=== PATIENT | female | born 1935 | race Caucasian/White ===

== ENCOUNTER 2019-10-30 08:57 | Inpatient (IN) | payer MEDICARE, OTHER, SELFPAY ==
[2019-10-30] VITALS (16 sets, daily range): BP systolic 102–121; BP diastolic 57–74; PULSE 71–100; RESP 15–27; TEMP 37.3–37.7; O2SAT 94–99; BMI 19.9
--- NOTE | 2019-10-30 09:16 | XRR_ITS ---
PROCEDURE INFORMATION: Exam: XR Chest, 1 View Exam date and time: 10/30/2019 9:33 AM Age: 83 years old Clinical indication: Dyspnea/cough TECHNIQUE: Imaging protocol: XR of the chest Views: 1 view. COMPARISON: CR Chest 2 views* [id number] 07/03/2019 9:09 PM FINDINGS: Lungs: There is bibasilar airspace disease, worse on the right, potentially due to pneumonia or aspiration pneumonitis. Pleural space: No pleural effusion or pneumothorax. Heart/Mediastinum: The cardiac silhouette is not enlarged. The mediastinal contours are normal. Bones/joints: Multilevel disc degeneration in the thoracic spine. Prior left rotator cuff surgery with humeral anchors present. XR/XR chest 1V portable [id number] IMPRESSION: Asymmetric bibasilar airspace disease. Consider pneumonia or aspiration pneumonitis.
--- NOTE | 2019-10-30 09:17 | ECG_ITS ---
Measurements Intervals [place] Rate: 67 P: 62 MO: 163 QRS: 45 QRSD: 89 T: 67 QT: 404 QTc: 428 SINUS RHYTHM Compared to ECG 11/12/2018 15:39:27 No significant changes Electronically Signed On 10-30-2019 19:33:55 CDT by Yadiel Karimi M.D. [id number]
--- NOTE | 2019-10-30 09:22 | W.ED.SOB ---
HPI - SOB/Dyspnea General: Chief Complaint: Shortness of Breath/Dyspnea Stated Complaint: AMS,FEVER Time Seen by Provider: 10/30/19 09:02 History of Present Illness: HPI Narrative: 83-year-old female presents from the emergency room with a fever. She denied a fever the last couple of days they had done a flu swab on her but is not yet completed. The family meeting phone updates but was not able to see the patient the last few days. They tell me she has no history of heart disease no history of congestive heart failure she has had episodes of difficulty with swallowing in the past but reports she has not had a stroke she is not diabetic. She is awake able to answer questions in relation to place and person but not time she has some mild tachypnea and audible rales and expiratory wheezes. MD elicited complaint: shortness of breath and cough Pertinent past history: COPD Onset (ago): day(s) (3-4) Timing: constant Severity: severe Relieving factors: oxygen, rest and bronchodilators Associated symptoms: Reports fever(s); Deny abdominal pain, chest pain, nausea, orthopnea or vomiting Treatment prior to arrival: oxygen and bronchodilator Review of Systems Const: Reports: fever and chills; Denies: body aches, change in appetite, fatigue or malaise ENMT: Denies: throat pain, ear pain, nasal discharge or nasal congestion Card: Reports: edema and shortness of breath on exertion; Denies: chest pain or shortness of breath when lying down Resp: Reports: shortness of breath and non-productive cough; Denies: productive cough GI: Denies: abdominal pain, nausea, vomiting, vomiting blood, coffee grounds in vomit, diarrhea, constipation, bloating, blood in stool or black tarry stool : Denies: flank pain, difficulty urinating, painful urination, urinary frequency or urinary urgency Skin/Breast: Denies: rash or itching PFSH ED PFSH: Medical History (Updated 10/30/19 @ 14:00 by Alexandra Brown DO) DEWAYNE (generalized anxiety disorder) HTN (hypertension) Osteoarthritis Surgical History (Updated 10/30/19 @ 13:53 by Alexandra Brown DO) H/O cataract extraction Bilateral - Dr Casas H/O neck surgery H/O shoulder surgery 2011 Dr Live in [place] History of colonoscopy 2010 - normal per patient History of hysterectomy Hx of tonsillectomy Family History Mother Dementia Father Cancer Lymphoma Brother Diabetes Social History Smoking and tobacco status: never smoked Physical Exam Const: EXAM LIMITATIONS: altered mental status GENERAL APPEARANCE: in distress, anxious and frail appearing ORIENTATION/CONSCIOUSNESS: Yes awake, Yes oriented to person and Yes oriented to place; not oriented to time HENMT: COMMON NORMALS: normocephalic, head/scalp atraumatic, hearing grossly normal bilaterally, external ears normal, EAC's normal, TM's normal bilaterally, nasal mucous membranes and turbinates normal, moist oral mucous membranes and oropharynx normal HEAD & SCALP: normocephalic and atraumatic NOSE: nasal mucous membranes and turbinates normal EXTERNAL EAR: Yes external ears normal EXTERNAL AUDITORY CANAL: EAC's normal TYMPANIC MEMBRANE: TM's normal bilaterally Eye: COMMON NORMALS: PERRL, EOMs intact bilaterally, conjunctivae normal and no scleral icterus CONJUNCTIVA: Yes conjunctivae normal PUPIL: Yes PERRL Neck/C-Spine: COMMON NORMALS: full ROM, no lymphadenopathy and supple Lymph: LYMPHATIC: no lymphadenopathy noted and no lymphedema noted Resp: AUSCULTATION: rales bilateral and localized (cases - L>R), wheezes expiratory wheezes and throughout and diminished lung sounds Cardio: COMMON NORMALS: regular rhythm RATE: tachycardic RHYTHM: regular rhythm GI: COMMON NORMALS: soft to palpation and no hepatosplenomegaly AUSCULTATION: Yes normoactive bowel sounds PALPATION: Yes soft, No tender, No guarding and Yes no hepatosplenomegaly Extremity: COMMON NORMALS: normal to inspection, normal capillary refill, no calf tenderness and no pedal edema GENERAL: Yes edema (1+ lower extremities bilaterally extending to the mid calf) Neuro: SENSORIUM/ORIENTATION: Yes oriented to person, Yes oriented to place and No oriented to time Skin: COMMON NORMALS: no rashes or lesions noted GENERAL SKIN EXAM: no rashes or lesions noted Course ED course: Patient has an acute pneumonia will admit discussed with family. Ultimately they decided to make the patient a no code which I think is appropriate. Recently she has had progressive worsening and decline in her condition due to dementia. Dr. Brown will take the admission antibiotics have been started. Vital Signs: Vital signs: Vital Signs Temperature 100 F H 10/30/19 08:56 Pulse Rate 77 10/30/19 14:10 Respiratory Rate 20 H 10/30/19 14:10 Blood Pressure 117/68 10/30/19 14:10 Pulse Oximetry 98 10/30/19 14:10 MDM - SOB/Dyspnea Lab Data: Labs: Lab Results 10/30/19 10/30/19 10/30/19 Range/Units 09:15 09:35 09:35 WBC 7.5 (4.0-10.0) 10^3/ uL RBC 3.03 L (4.1-5.3) 10^6/u L Hgb 9.3 L (11.5-15.3) g/dL Hct 29.4 L (37.0-47.0) % MCV 97.0 (81-99) fL MCH 30.7 (28.0-34.0) pg MCHC 31.6 (30.0-36.0) g/dL RDW 13.2 (12.1-15.1) % Plt Count 218 (130-400) 10^3/c mm MPV 9.0 (7.4-10.4) fL Neut % (Auto) 73.5 % Lymph % (Auto) 16.1 % [place] % (Auto) 10.0 % Eos % (Auto) 0.0 % Baso % (Auto) 0.1 % Neut # (Auto) 5.5 (1.8-7.7) 10^3/u L Lymph # (Auto) 1.2 (0.8-4.8) 10^3/u L [place] # (Auto) 0.8 (0.2-0.9) 10^3/u L Eos # (Auto) 0.0 (0.0-0.8) 10^3/u L Baso # (Auto) 0.0 (0.0-0.1) 10^3/u L Nucleated RBC % (a uto) 0 % Nucleated RBCs # 0.0 /100WBC Specimen Type Arterial Sample Site Radial, right ABG pH 7.44 (7.35-7.45) ABG pCO2 42.1 (35-45) mmHg ABG pO2 106.0 H (80.0-100.0) mmH g ABG HCO3 28.5 H (22-26) mmol/L ABG O2 Saturation 99.1 ABG Base Excess 3.9 H (-2.0-2.0) mmol/ L Dieter Test Pos Hematocrit 29.5 L (37-47) % Hgb O2 Saturation 98.2 (95-100) % Carboxyhemoglobin 0.5 (0.4-20.1) %THgb Methemoglobin 0.3 L (0.4-1.5) % Total Hemoglobin 9.6 L (12-16) g/dL Sodium 135.0 134 L (131-143) mmol/L Potassium 3.3 L 3.7 (3.5-5.0) mmol/L Glucose 94.0 115 (70-115) mg/dL Ionized Calcium 1.1 (1.1-1.4) mmol/L O2 Delivery Device Nc O2 Liters/Min 4.0 % Promotional Demonstrator ID broma Chloride 97 L (98-107) mmol/L Carbon Dioxide 26 (22-29) mmol/L Anion Gap 14.7 (5-19) BUN 22 (8-23) mg/dL Creatinine 0.9 (0.5-0.9) mg/dL Calculated Osmolal ity 276 L (285-295) mOsm/k g Calcium 8.7 (8.5-10.5) mg/dL Total Bilirubin 0.3 (0.15-1.2) mg/dL AST 30 (0-32) U/L ALT 11 (0-33) U/L Alkaline Phosphata se 75 (35-105) IU/L Troponin T Baselin e (0-10) ng/mL NT-Pro-B Natriuret Pep 1738 H (0-450) pg/mL Total Protein 6.4 L (6.6-8.7) g/dL Albumin 3.1 L (3.5-5.2) g/dL Globulin 3.3 (1.3-4.6) g/dL Influenza Type A A g (Negative) POC Influenza B Ag (Negative) 10/30/19 10/30/19 Range/Units 09:35 09:35 WBC (4.0-10.0) 10^3/ uL RBC (4.1-5.3) 10^6/u L Hgb (11.5-15.3) g/dL Hct (37.0-47.0) % MCV (81-99) fL MCH (28.0-34.0) pg MCHC (30.0-36.0) g/dL RDW (12.1-15.1) % Plt Count (130-400) 10^3/c mm MPV (7.4-10.4) fL Neut % (Auto) % Lymph % (Auto) % [place] % (Auto) % Eos % (Auto) % Baso % (Auto) % Neut # (Auto) (1.8-7.7) 10^3/u L Lymph # (Auto) (0.8-4.8) 10^3/u L [place] # (Auto) (0.2-0.9) 10^3/u L Eos # (Auto) (0.0-0.8) 10^3/u L Baso # (Auto) (0.0-0.1) 10^3/u L Nucleated RBC % (a uto) % Nucleated RBCs # /100WBC Specimen Type Sample Site ABG pH (7.35-7.45) ABG pCO2 (35-45) mmHg ABG pO2 (80.0-100.0) mmH g ABG HCO3 (22-26) mmol/L ABG O2 Saturation ABG Base Excess (-2.0-2.0) mmol/ L Dieter Test Hematocrit (37-47) % Hgb O2 Saturation (95-100) % Carboxyhemoglobin (0.4-20.1) %THgb Methemoglobin (0.4-1.5) % Total Hemoglobin (12-16) g/dL Sodium (131-143) mmol/L Potassium (3.5-5.0) mmol/L Glucose (70-115) mg/dL Ionized Calcium (1.1-1.4) mmol/L O2 Delivery Device O2 Liters/Min % Promotional Demonstrator ID Chloride (98-107) mmol/L Carbon Dioxide (22-29) mmol/L Anion Gap (5-19) BUN (8-23) mg/dL Creatinine (0.5-0.9) mg/dL Calculated Osmolal ity (285-295) mOsm/k g Calcium (8.5-10.5) mg/dL Total Bilirubin (0.15-1.2) mg/dL AST (0-32) U/L ALT (0-33) U/L Alkaline Phosphata se (35-105) IU/L Troponin T Baselin e 37 H (0-10) ng/mL NT-Pro-B Natriuret Pep (0-450) pg/mL Total Protein (6.6-8.7) g/dL Albumin (3.5-5.2) g/dL Globulin (1.3-4.6) g/dL Influenza Type A A g Negative (Negative) POC Influenza B Ag Negative (Negative) Discharge Plan Discharge Patient Disposition: Admitted As Inpatient Admit Provider: Alexandra Brown Coding Level of Care Code ED Catering Cook for Gavi Fwd Exam Comprehensive
[2019-10-30 09:43] LABS: Basophils % 0.1 %; Hematocrit 29.4 % (37.0-47.0); Hemoglobin 9.3 g/dL (11.5-15.3); Lymphocytes # 1.2 10^3/uL (0.8-4.8); Lymphocytes % 16.1 %; Mean Corpuscular HGB Conc 31.6 g/dL (30.0-36.0); Mean Corpuscular Hemoglobin 30.7 pg (28.0-34.0); Monocytes # 0.8 10^3/uL (0.2-0.9); Neutrophils # 5.5 10^3/uL (1.8-7.7); Neutrophils % 73.5 %; Nucleated Red Blood Cells % 0 %; Platelet Count 218 10^3/cmm (130-400); Red Blood Count 3.03 10^6/uL (4.1-5.3); Red Cell Distribution Width 13.2 % (12.1-15.1); White Blood Count 7.5 10^3/uL (4.0-10.0)
[2019-10-30] MEDS: levofloxacin-dextrose 5 % 750 MG/150 ML PREMIX 150 MG IV (09:51)
[2019-10-30 10:00] LABS: Troponin(5th) Baseline 37 ng/mL (0-10)
[2019-10-30 10:08] LABS: Alanine Aminotransferase 11 U/L (0-33); Albumin Level 3.1 g/dL (3.5-5.2); Alkaline Phosphatase 75 IU/L (35-105); Anion Gap 14.7 (5-19); Aspartate Amino Transferase 30 U/L (0-32); Blood Urea Nitrogen 22 mg/dL (8-23); Calcium 8.7 mg/dL (8.5-10.5); Carbon Dioxide 26 mmol/L (22-29); Chloride 97 mmol/L (98-107); Globulin 3.3 g/dL (1.3-4.6); Glucose 115 mg/dL (65-115); NT Pro B Type Natriuretic Pept 1738 pg/mL (0-450); Osmolality Calculated 276 mOsm/kg (285-295); Potassium 3.7 mmol/L (3.5-5.1); Sodium 134 mmol/L (136-145); Total Bilirubin 0.3 mg/dL (0.15-1.2); Total Protein 6.4 g/dL (6.6-8.7)
[2019-10-30 10:20] LABS: Influenza A by IFA Negative (Negative); Influenza B by IFA Negative (Negative)
[2019-10-30 10:22] LABS: ABG PCO2 42.1 mmHg (35-45); ABG PH Result 7.44 (7.35-7.45); Arterial Blood Gas Hematocrit 29.5 % (37-47); Base Excess ABG 3.9 mmol/L (-2.0-2.0); Blood Gas Allen Test Pos; Blood Gas Sample Site Radial, right; Blood Gas Sample Type Arterial; Carboxyhemoglobin 0.5 %THgb (0.4-20.1); HCO3 ABG 28.5 mmol/L (22-26); HGB O2 Sat 98.2 % (95-100); Ionized Calcium Level - ABG 1.1 mmol/L (1.1-1.4); Methemoglobin 0.3 % (0.4-1.5); Oxygen Device NC; Oxygen Saturation ABG 99.1; Potassium Level - ABG 3.3 mmol/L (3.5-5.0); Total Hemoglobin 9.6 g/dL (12-16)
--- NOTE | 2019-10-30 11:17 | ECG_ITS ---
Measurements Intervals [place] Rate: 73 P: 55 CT: 180 QRS: 32 QRSD: 88 T: 61 QT: 416 QTc: 461 SINUS RHYTHM Compared to ECG 11/12/2018 15:39:27 No significant changes Electronically Signed On 10-30-2019 19:38:01 CDT by Yadiel Karimi M.D. [id number]
[2019-10-30 12:04] LABS: Add Urine Microscopic? NO
[2019-10-30 12:15] LABS: Bilirubin Urine Neg (NEGATIVE); Blood Urine Neg (Negative); Glucose Urine UA Norm (Normal); Ketones Urine Negative (Negative); Leukocyte Esterase Urine Negative (Negative); Nitrate Urine Negative (Negative); Protein Urine Neg (Negative); Specific Gravity, Urine 1.005 (1.005-1.030); Urine Appearance Clear (CLEAR); Urine Color Yellow (Yellow); Urobilinogen Urine Norm (Negative); pH Urine 7 (5-7)
--- NOTE | 2019-10-30 12:33 | PC.NURSE ---
Nurse not ready for report
--- NOTE | 2019-10-30 13:51 | P.HP_ITS ---
Providers/Chief Complaint Admitting Physician: Alexandra Brown DO Primary Care Provider: Jas Coffey APN Chief Complaint: PNEUMONIA History of Present Illness Beena Sam is a 83 year old female that presented from the correction today due to increased confusion and fever. Patient was noted to have a fever overnight at the correction and started on Levaquin, received first dose at the correction of Levaquin 500 mg 1 tab daily. She was reported to be recently taken off of Risperdal and placed on Cogentin and Seroquel. She is noted to have dementia and had been recently hospitalized in July at [facility] in [facility] due to concern for paranoia. Family reports rapid decline since that time. They stated that patient's is also in the correction and noted to have dementia. Patient is difficult to obtain HPI from due to her chronic dementia and acute encephalopathy Review of Systems General: Reports: ROS unobtainable due to mental status Medications/Allergies Home Medications Medication Instructions Recorded Confirmed Last Taken Type benztropine 1 mg PO BID 10/30/19 10/30/19 Unknown History conjugated estrogens [Premarin] 0.625 mg PO DAILY 10/30/19 10/30/19 Unknown History duloxetine 60 mg PO DAILY 10/30/19 10/30/19 Unknown History levofloxacin [Levaquin] 500 mg PO DAILY 10/30/19 10/30/19 Unknown History quetiapine [Seroquel] 50 mg PO BID 10/30/19 10/30/19 Unknown History Allergies Allergy/AdvReac Type Severity Reaction Status Date / Time metronidazole [From Flagyl] Allergy Unknown Verified 08/15/19 16:47 Opioids - Morphine Analogues Allergy Unknown Verified 08/15/19 16:47 Penicillins Allergy Unknown Verified 08/15/19 16:47 Sulfa (Sulfonamide Allergy Unknown Verified 08/15/19 16:47 Antibiotics) PFSH Acute PFSH: Medical History (Updated 10/30/19 @ 14:00 by Alexandra Brown DO) DEWAYNE (generalized anxiety disorder) HTN (hypertension) Osteoarthritis Surgical History (Updated 10/30/19 @ 13:53 by Alexandra Brown DO) H/O cataract extraction Bilateral - Dr Casas H/O neck surgery H/O shoulder surgery 2011 Dr Live in [place] History of colonoscopy 2010 - normal per patient History of hysterectomy Hx of tonsillectomy Family History Mother Dementia Father Cancer Lymphoma Brother Diabetes Social History Smoking and tobacco status: never smoked Vitals/I&O/Wt Last Vital Signs Temp 100 F H 10/30/19 08:56 Pulse 80 10/30/19 08:56 Resp 24 H 10/30/19 08:56 BP 109/57 10/30/19 09:04 Pulse Ox 98 10/30/19 09:05 Weight last 48 hrs Weight 49.442 kg Physical Exam Const: COMMON NORMALS: alert EXAM LIMITATIONS: altered mental status ORIENTATION/CONSCIOUSNESS: Yes awake and Yes confused HENMT: COMMON NORMALS: normocephalic and head/scalp atraumatic HEAD & SCALP: normocephalic and atraumatic Eye: COMMON NORMALS: PERRL PUPIL: Yes PERRL Neck/C-Spine: COMMON NORMALS: supple GENERAL: Yes normal visual inspection Resp: COMMON NORMALS: no retractions OTHER: Oxygen by nasal cannula in place, diminished breath sounds bilaterally and poor cough Cardio: COMMON NORMALS: regular rate and regular rhythm RATE: regular rate RHYTHM: regular rhythm GI: COMMON NORMALS: soft to palpation and non-tender INSPECTION: No abdominal distension AUSCULTATION: Yes normoactive bowel sounds PALPATION: Yes soft Extremity: NARRATIVE EXTREMITY EXAM: 2+ pitting edema in the lower extremities bilaterally Neuro: OTHER: Confused, awake and continues to try to sit up in bed, rigidity present in the upper and lower extremities Psych: MEMORY/COGNITION: Yes memory grossly impaired Skin: COMMON NORMALS: no rashes or lesions noted Data : 10/30/19 09:35 10/30/19 09:35 CXR: I personally reviewed and interpreted this imaging study as follows: Radiologist's impression: IMPRESSION: Asymmetric bibasilar airspace disease. Consider pneumonia or aspiration pneumonitis. A&P Assessment and plan (1) Aspiration pneumonia: Continue on IV antibiotics Patient is on 4 L of oxygen by nasal cannula at this time, continue to wean as tolerated Speech therapy ordered for evaluation, n.p.o. until that time Status: Acute Code(s): J69.0 - Pneumonitis due to inhalation of food and vomit (2) Encephalopathy acute: Acute on chronic encephalopathy with underlying dementia at night, on Cymbalta 60 mg daily Continue neurologic checks Sitter due to patient repetitively trying to get out of bed Patient also with rigidity concern for question of Lewy body dementia, discussed with patient's primary care provider. Had recently been on Risperdal, this was discontinued and patient was transitioned to Seroquel and Cogentin. Further neurologic consultation with Dr. Sawyer placed, appreciate recommendations and assistance in patient's care. CT scan of the head ordered Status: Acute Code(s): G93.40 - Encephalopathy, unspecified Additional A&P Information we will check TSH Fever: Due to concern for aspiration pneumonia/pneumonitis, blood culture ordered and pending. Flu swab negative Concern for rigidity: Family reported recent december starting medication for Parkinson's, after discussion with patient's primary care provider it appears the patient was started on Seroquel and Cogentin. Discussed with neurology for consultation. CT scan of the head ordered for further evaluation. Record request from recent hospitalization in July from [facility] Anemia: No evidence of any active bleeding hemoglobin of 9.3, will continue to monitor closely Elevated BNP: Patient does have bilateral lower extremity edema, however does not not appear to be significantly fluid overloaded on chest x-ray. Will further evaluate with echocardiogram DVT ppx: Lovenox Diet: NPO until ST ev COde status: Full code, family reported to be DPOA discussed with Son and Daughter at bedside and full code at this time and will discuss further as a family Attestations Medical Necessity Statement*: Patient requires hospitalization due to acute on chronic encephalopathy with concern for aspiration pneumonia. Expected stay greater than 2 midnights Coding Level of Care Code Acute Rhit for [facility] Fwd Exam Comprehensive Diagnoses Aspiration pneumonia J69.0 Encephalopathy acute G93.40
--- NOTE | 2019-10-30 14:11 | USCV_ITS ---
Beena Sam Age: 83 Gender: F : 1935 Exam Date: 10/30/2019 16:53 Ordering Phys: Alexandra Brown DO Technologist: Maliha Mcdonald [place] [facility] [place]: hypoxia BP: 121 / 59 HR: 74 Rhythm: Sinus Technical Quality: Adequate MEASUREMENTS (Male / Female) Normal Values 2D ECHO LV Diastolic Diameter PLAX 3.9 cm 4.2 - 5.9 / 3.9 - 5.3 cm LV Systolic Diameter PLAX 2.9 cm LV Chamber Size 3.4 cm IVS Diastolic Thickness 1.1 cm 0.6 - 1.0 / 0.6 - 0.9 cm IVS Systolic Thickness 1.1 cm LVPW Diastolic Thickness 1.4 cm 0.6 - 1.0 / 0.6 - 0.9 cm LVPW Systolic Thickness 1.6 cm RV Chamber Size 2.3 cm LVOT Diameter 2.0 cm LV Ejection Fraction 2D Teich 47.7 % LV Ejection Fraction MOD 2C 53.5 % LV Ejection Fraction 2C AL 53.4 % LA Diameter 3.4 cm LA Width 3.8 cm LA Height 4.3 cm RA Width 3.4 cm RA Height 3.9 cm Aorta at Sinotubular Diameter 2.6 cm M-MODE LV Diastolic Diameter MM 4.9 cm 4.2 - 5.9 / 3.9 - 5.3 cm LV Systolic Diameter MM 2.8 cm LV Ejection Fraction MM Teich 74.9 % IVS Diastolic Thickness MM 0.5 cm 0.6 - 1.0 / 0.6 - 0.9 cm IVS Systolic Thickness MM 1.0 cm LVPW Diastolic Thickness MM 0.6 cm 0.6 - 1.0 / 0.6 - 0.9 cm LVPW Systolic Thickness MM 1.3 cm Aortic Annulus Diameter 2.9 cm LA Ao Ratio MM 1.1 MV E Point Septal Separation 0.2 cm DOPPLER AV Peak Velocity 156.0 cm/s LVOT Peak Velocity 118.0 cm/s AV Area Cont Eq vti 3.1 cm squared AV Area Cont Eq pk 2.4 cm squared MV Area PHT 3.3 cm squared Mitral E to A Ratio 1.3 MV E' Velocity 10.0 cm/s Mitral E to MV E' Ratio 8.7 Mitral E to LV E' Lateral Ratio 9.1 Mitral E to LV E' Septal Ratio 8.5 TR Peak Velocity 306.0 cm/s TR Peak Gradient 37.4 mmHg TV Peak E Velocity 68.0 cm/s Right Atrial Pressure 3.0 mmHg Pulmonary Artery Systolic Pressu 40.5 mmHg PV Peak Velocity 89.0 cm/s RV Acceleration Time 0.1 s RV Ejection Time 0.3 s RV AcT/ET 0.3 FINDINGS Left Ventricle Normal left ventricular size, systolic function and wall thickness, with no regional wall motion abnormalities. Grade I/IV diastolic dysfunction (abnormal relaxation filling pattern), normal to mildly elevated filling pressures. Left ventricular ejection fraction is estimated at 65 %. Right Ventricle Normal right ventricular size and systolic function. Mild pulmonary hypertension, RVSP 40.5 mmHg. Right Atrium The right atrium is normal in size. Left Atrium The left atrium is normal in size. Mitral Valve Structurally normal mitral valve. Mild mitral valve regurgitation. Aortic Valve Structurally normal aortic valve without significant sclerosis or stenosis. There is no aortic regurgitation. Tricuspid Valve Structurally normal tricuspid valve. Trace tricuspid valve regurgitation. Pulmonic Valve Pulmonic valve not well visualized. Pericardium Normal pericardium without effusion. Aorta Normal ascending aorta dimension. CONCLUSIONS Normal left ventricular size, systolic function and wall thickness, with no regional wall motion abnormalities. Grade I/IV diastolic dysfunction (abnormal relaxation filling pattern), normal to mildly elevated filling pressures. Left ventricular ejection fraction is estimated at 65 %. Normal right ventricular size and systolic function. Mild pulmonary hypertension, RVSP 40.5 mmHg. Structurally normal mitral valve. Mild mitral valve regurgitation. No significant change since the prior echocardiogram study of 07/17/2017 Dr. Yadiel Karimi MD (Electronically Signed) Final Date: 30 October 2019 18:59 S
[2019-10-30 14:58] LABS: Iron 11 ug/dL (37-145); Percent Saturation 3.9 % (20-50); Thyroid Stimulating Hormone 7.32 uIU/mL (0.27-4.20); Total Iron Binding Capacity 279 mcg/dl; Unsaturated Iron Binding 268 ug/dL (112-347)
--- NOTE | 2019-10-30 15:06 | PC.NURSE ---
Nurse to call back for report
[2019-10-30 15:10] LABS: Lactic Sepsis W/Reflex 1.3 mmol/L (0.5-2.2)
--- NOTE | 2019-10-30 15:17 | ECG_ITS ---
Measurements Intervals [place] Rate: 80 P: 64 [place]: 170 QRS: 11 QRSD: 84 T: 58 QT: 370 QTc: 428 SINUS RHYTHM Compared to ECG 11/12/2018 15:39:27 No significant changes Electronically Signed On 10-30-2019 19:35:45 CDT by Yadiel Karimi M.D. [id number]
[2019-10-30 16:08] LABS: Troponin 5 6HR 38.69 ng/mL (0-10); Troponin 5 6HR Delta 1.69 ng/L (0-12)
--- NOTE | 2019-10-30 16:10 | CTR_ITS ---
PROCEDURE INFORMATION: Exam: CT Head Without Contrast Exam date and time: 10/30/2019 5:21 PM Age: 83 years old Clinical indication: Altered mental status/memory loss; Patient HX: Confusion/ams; Additional info: Encephalopathy TECHNIQUE: Imaging protocol: Computed tomography of the head without contrast. Total DLP: 627.44 mGy-cm Radiation optimization: All CT scans at this facility use at least one of these dose optimization techniques: automated exposure control; mA and/or kV adjustment per patient size (includes targeted exams where dose is matched to clinical indication); or iterative reconstruction. COMPARISON: CT head wo con* [id number] 01/24/2019 4:20 PM FINDINGS: Brain: There is unchanged volume loss and periventricular low density compatible with small vessel disease changes. No acute hemorrhage, edema or mass effect. Midline shift: No midline shift. Ventricles: Normal. No ventriculomegaly. Bones/joints: Unremarkable. No acute fracture. Sinuses: Visualized sinuses are unremarkable. No fluid levels. Mastoid air cells: Visualized mastoid air cells are well aerated. Soft tissues: Unremarkable. CT/CT head wo con* [id number] IMPRESSION: No acute intracranial abnormality. Radiation Dose CTDIVOL = (mGy): DLP = 627.44 (mGy-cm)
[2019-10-30] MEDS: LORazepam 2 mg/mL INJ 1 mL 0.5 MG IVP (16:49)
[2019-10-30] MEDS: D5-NS 0.45% + KCL 20 mEq 20 MEQ/1,000 ML BAG 100 MEQ IV (16:49)
[2019-10-30] MEDS: enoxaparin 40 mg/0.4 mL Syringe SUBCUT (16:49)
[2019-10-30] MEDS: timolol 0.5% Op Soln 5 mL Btl 1 DROP EYE-BOTH (18:20)
[2019-10-30 18:23] LABS: Free T4 Free Thyroxine 1.01 ng/dL (0.82-1.77)
[2019-10-31] VITALS (10 sets, daily range): BP systolic 100–123; BP diastolic 50–68; PULSE 56–86; RESP 12–24; TEMP 36.6–37.4; O2SAT 93–99; BMI 24.9
--- NOTE | 2019-10-31 02:12 | PC.PHAR ---
RENAL DOSING FOR LEVAQUIN CRCL 36.6 CHANGED LEVAQUIN TO 750MG Q48H
[2019-10-31] MEDS: TRAMadol 50 mg Tablet 100 MG PO (03:43)
[2019-10-31 04:09] LABS: Basophils % 0.1 %; Eosinophils % 0.1 %; Hematocrit 28.9 % (37.0-47.0); Hemoglobin 8.9 g/dL (11.5-15.3); Lymphocytes # 2.1 10^3/uL (0.8-4.8); Lymphocytes % 22.2 %; Mean Corpuscular HGB Conc 30.8 g/dL (30.0-36.0); Mean Corpuscular Hemoglobin 29.5 pg (28.0-34.0); Mean Corpuscular Volume 95.7 fL (81-99); Mean Platelet Volume 9.1 fL (7.4-10.4); Monocytes # 0.5 10^3/uL (0.2-0.9); Monocytes % 5.4 %; Neutrophils # 6.8 10^3/uL (1.8-7.7); Neutrophils % 71.9 %; Nucleated Red Blood Cells % 0 %; Platelet Count 219 10^3/cmm (130-400); Red Blood Count 3.02 10^6/uL (4.1-5.3); Red Cell Distribution Width 13.2 % (12.1-15.1); White Blood Count 9.5 10^3/uL (4.0-10.0)
[2019-10-31 04:24] LABS: Anion Gap 11.8 (5-19); Blood Urea Nitrogen 18 mg/dL (8-23); Calcium 8.5 mg/dL (8.5-10.5); Carbon Dioxide 26 mmol/L (22-29); Chloride 101 mmol/L (98-107); Glucose 99 mg/dL (65-115); Osmolality Calculated 277 mOsm/kg (285-295); Potassium 3.8 mmol/L (3.5-5.1); Sodium 135 mmol/L (136-145)
--- NOTE | 2019-10-31 04:53 | PC.NURSE ---
patient kept trying to get up she was more anxious when i tried to get her to lay back and try and rest she said she cant relax. gave her a dose of her hydros to help assist her with pain and or anxiety to help rest. will continue to monitor closely.
[2019-10-31] MEDS: D5-NS 0.45% + KCL 20 mEq 20 MEQ/1,000 ML BAG 100 MEQ IV ×2 (06:31→20:40)
[2019-10-31] MEDS: duloxetine 60 mg Capsule PO (09:43)
[2019-10-31] MEDS: benztropine 1 mg Tablet PO (09:43)
[2019-10-31] MEDS: pantoprazole DR 40 mg Tablet PO (09:43)
[2019-10-31] MEDS: quetiapine 25 mg Tablet 50 MG PO (09:43)
[2019-10-31] MEDS: timolol 0.5% Op Soln 5 mL Btl 1 DROP EYE-BOTH ×2 (09:43→17:21)
--- NOTE | 2019-10-31 10:24 | P.PN_ITS ---
Subjective Subjective: Interval history: Patient awake in bed at time of exam today. She is more alert and answering questions including her name. Decreased rigidity today. She denies any chest pain, reported cough Vitals/I&O/Wt Last Vital Signs Temp 97.8 F 10/31/19 08:49 Pulse 65 10/31/19 07:09 Resp 16 10/31/19 07:09 BP 123/59 10/31/19 07:09 Pulse Ox 99 10/31/19 07:09 10/30/19 10/31/19 10/31/19 22:59 06:59 14:59 Intake Total 1000 / 1000 Balance 1000 / 1000 Weight last 48 hrs Weight 61.825 kg Weight 61.825 kg Weight 49.442 kg Physical Exam Const: COMMON NORMALS: alert EXAM LIMITATIONS: altered mental status ORIENTATION/CONSCIOUSNESS: Yes awake, Yes oriented to person and Yes confused HENMT: COMMON NORMALS: normocephalic and head/scalp atraumatic HEAD & SCALP: normocephalic and atraumatic Eye: COMMON NORMALS: PERRL PUPIL: Yes PERRL Neck/C-Spine: COMMON NORMALS: supple GENERAL: Yes normal visual inspection Resp: COMMON NORMALS: no retractions OTHER: Oxygen by nasal cannula in place, diminished breath sounds bilaterally Cardio: COMMON NORMALS: regular rate and regular rhythm RATE: regular rate RHYTHM: regular rhythm GI: COMMON NORMALS: soft to palpation and non-tender INSPECTION: No abdominal distension AUSCULTATION: Yes normoactive bowel sounds PALPATION: Yes soft Extremity: NARRATIVE EXTREMITY EXAM: 2+ pitting edema in the lower extremities bilaterally Neuro: SENSORIUM/ORIENTATION: Yes alert and Yes oriented to person OTHER: Pleasantly confused, improved mental status today. Rigidity has improved Psych: MEMORY/COGNITION: Yes memory grossly impaired Skin: COMMON NORMALS: no rashes or lesions noted GENERAL SKIN EXAM: no rashes or lesions noted Data : 10/31/19 03:45 10/31/19 03:45 Micro: Microbiology 10/30/19 14:52 Blood Culture - Preliminary Blood SPECIMEN COLLECTED 10/30/19 09:35 Blood Culture - Preliminary Blood SPECIMEN COLLECTED A&P Assessment and plan (1) Aspiration pneumonia: Continue on Levaquin Continue to wean oxygen as tolerated. Currently on 4 L by nasal cannula Speech therapy evaluated and patient placed on soft mechanical diet with thin liquids Status: Acute Code(s): J69.0 - Pneumonitis due to inhalation of food and vomit (2) Encephalopathy acute: Acute on chronic encephalopathy with underlying dementia at night, on Cymbalta 60 mg daily Discussed with patient's primary care provider and with neurology. Patient's encephalopathy appears to be improved today. CT head ordered which shows no acute intracranial abnormality. Neurology consulted do due to patient having acute decline with reported decline since July by family Status: Acute Code(s): G93.40 - Encephalopathy, unspecified Additional A&P Information Fever: Due to concern for aspiration pneumonia/pneumonitis, blood culture ordered and pending. Flu swab negative Concern for rigidity: Improved today. Patient has been adjusting medications with primary care provider, however recently discontinued Risperdal and was started on Seroquel and Cogentin. Neurology consultation as noted above Anemia: No evidence of any active bleeding hemoglobin of 8.9, will continue to monitor closely Elevated BNP: Patient does not appear to be significantly fluid overloaded at this time. Echocardiogram reviewed showed diastolic dysfunction, normal LVEF DVT ppx: Lovenox Diet: Mechanical soft, thin liquids COde status: Full code, family reported to be DPOA discussed with Son and Daughter at bedside and full code at this time and will discuss further as a family Attestations Medical Necessity Statement*: Continued hospitalization due to concern for pneumonia Coding Level of Care Code Acute Associate Financial Planner for [facility] Fwd Exam Comprehensive Diagnoses Aspiration pneumonia J69.0 Encephalopathy acute G93.40
--- NOTE | 2019-10-31 12:15 | PC.CHAP ---
Pastoral Care Encounter/Spiritual Assessment Type of Contact [] Declined bpm architect visit [] Patient/Family/Request visit [] Outpatient visit [] Follow-up visit [] Physician referral [] Code/Alert [x] Routine visit [] Staff referral [] Actively dying [] Patient sleeping [] Family support [] [] Out of room [] Palliative care [] [] Receiving care in room [] Pre-surgical visit [] Trauma [] Long length of stay [] ICU visit [] Other: Relational/Emotional Strength [] Patient feels connected with others/family/visitors/staff [] Distress [] Loneliness/isolation [] Abandonment Spirituality of Patient [] Person of Lisa [] Attends Restorationist of their Lisa [] Believes in Prayer [] Reads Bible or Zoroastrian materials [] There are Spiritual issues to be addressed Accounts Specialist Interventions [x] Prayer [x] Active listening [] Non-anxious presence [] Spiritual/emotional support [] Crisis/trauma care [] Spiritual counseling [] Bereavement support [] Provided bereavement packet [] Provided Bible/devotional materials [] Provided toy/stuffed animal, coloring book to patient or family member [] Provided Communion [] Anointing/[place] [] Salvation [] Completed spiritual assessment [] Other: Impact on Illness or Injury [] Angry [] Fearful [] Anxious [] Often cries [] Exhaustion [] Unable to work [] Unable to attend lutheran [] Unable to walk/stand [] Unable to read [] Unable to drive [] Unable to eat/drink [] Unable to sleep [] Unable to be with family [] Patient intubated [x] Other: Summary Patient was not conscious and had an [facility] sitter in the room with her. Prayer provided. Time spent with patient 4 minutes
--- NOTE | 2019-10-31 13:16 | PC.OT ---
OT EVALUATION ATTEMPTED TWICE TODAY. PATIENT HAS BEEN SLEEPING SOUNDLY BOTH TIMES AND 1:1 SITTER REPORTS THAT SHE HAS BEEN SLEEPING ALL DAY AND NOT EASILY AWAKENED. WILL ATTEMPT EVALUATION TOMORROW
--- NOTE | 2019-10-31 14:06 | PC.NURSE ---
PATIENT BECAME INCREASINGLY SLEEPY AROUND 1200 TODAY. VITAL SIGNS STABLE AND PATIENT WOULD RESPOND TO VERBAL STIMULI. DR. MAGUIRE NOTIFIED OF PATIENT'S INCREASED SLEEPINESS AND LETHARGY. PATIENT AT ONE POINT STATED TO NURSE THAT YES, IM TIRED. DR MAGUIRE ORDERED Q2H VITALS SIGNS X2. ALL HAVE BEEN WNL. PATIENT WEANED TO 2LNC FROM 4LNC.
--- NOTE | 2019-10-31 14:48 | P.CONIM_ITS ---
Providers/Reason For Consult Consulting Physican/Specialty*: Hospitalist Reason for Consult*: Altered mental status Attending Physician: Alexandra Brown DO Primary Care Provider: Jas Coffey APN History of Present Illness History of Present Illness Beena Sam is a 83 year old woman with rigidity and delirium. I talked with her daughter, Tammy, by telephone. She indicates that this woman has been demented for more than 5 years. She is grown much worse in the last 2 years. She managed to mask her dementia by keeping notes and guarding her memory problem closely because she did not want anyone to know about it. For the last year Tammy Gray, her daughter, has been taking care of her and her who also is demented. In July everything deteriorated when the patient's developed a severe infection and had to be transferred to [facility] for lack of ICU beds locally. Beena insisted on going along and she became so agitated that they threw her out. She did not recognize her , thought he was her father, and was telling him not to drink the water because it was poison. She did not recognize her daughter. She was severely agitated. She had to be medicated and was placed in the alf at [facility] where her was also placed. She was agitated and initially received Risperdal. She became very stiff and Cogentin was added and she was started on Seroquel. Despite these changes she has continued to display severe rigidity. She was hospitalized here for altered mental status and she was nauseated in the ER and received Zofran. She received a dose of lorazepam yesterday. The nurses explained to me that today she is sedated but that she had not received any type of sedatives. She is on ondansetron and lorazepam as needed. At some point she received levodopa carbidopa and she is on Seroquel 50 mg 3 times daily. She has also been started on meclizine 12.5 mg 3 times daily. Tammy says that this patient did not exhibit stiffness until she went to the alf. She was taken off of Librax recently and she has been on it for years through [facility] at 3 times daily unknown dosage. She has been on lorazepam 0.5 mg twice daily up to 3 times a day for years. Review of Systems Const: Reports: change in appetite; Denies: fever or chills Eyes: Denies: change in vision Card: Reports: edema and swelling of feet/ankles (Her daughter thought it was the Risperdal); Denies: chest pain Resp: Denies: shortness of breath or productive cough GI: Reports: nausea : Reports: difficulty urinating (At one point she was experiencing urinary retention and had to be on a catheter when she took all of her medication for a week in 1 day) Neuro: Reports: lack of coordination and difficulty walking (She has been on a walker up until recently and now she cannot walk); Denies: headache Psych: Reports: anxiety, depression and paranoia; Denies: visual hallucinations or auditory hallucinations Meds/Allergies Home Medications and Allergies Home Medications Medication Instructions Recorded Confirmed Type acetaminophen 500 mg tablet 500 mg PO DAILY PRN tab 08/15/19 10/30/19 History alfuzosin 10 mg tablet,extended 10 mg PO BEDTIME tab 08/15/19 10/30/19 History release 24 hr latanoprost 0.005 % eye drops 1 drop OPHTHALMIC (EYE) BEDTIME ml 08/15/19 10/30/19 History lorazepam 0.5 mg tablet 0.5 mg PO BEDTIME 08/15/19 10/30/19 History meclizine 25 mg tablet 12.5 mg PO TID PRN 08/15/19 10/30/19 History pantoprazole 40 mg tablet,delayed 40 mg PO DAILY tab 08/15/19 10/30/19 History release timolol 0.5 % eye drops 1 drop OPHTHALMIC (EYE) BID 08/15/19 10/30/19 History tramadol 50 mg tablet 100 mg PO DAILY PRN tab 08/15/19 10/30/19 History benztropine 1 mg PO BID 10/30/19 10/30/19 History conjugated estrogens [Premarin] 0.625 mg PO DAILY 10/30/19 10/30/19 History duloxetine 60 mg PO DAILY 10/30/19 10/30/19 History levofloxacin [Levaquin] 500 mg PO DAILY 10/30/19 10/30/19 History quetiapine [Seroquel] 50 mg PO BID 10/30/19 10/30/19 History Allergies Allergy/AdvReac Type Severity Reaction Status Date / Time metronidazole [From Flagyl] Allergy Unknown Verified 08/15/19 16:47 Opioids - Morphine Analogues Allergy Unknown Verified 08/15/19 16:47 Penicillins Allergy Unknown Verified 08/15/19 16:47 Sulfa (Sulfonamide Allergy Unknown Verified 08/15/19 16:47 Antibiotics) Current Medications Current Medications Generic Name Dose Route Start Last Admin Trade Name Freq PRN Reason Stop Dose Admin Benztropine Mesylate 1 mg 10/30/19 18:00 10/31/19 09:43 Cogentin PO 1 mg BID CHELSEY Administration Enoxaparin Sodium 40 mg 10/30/19 15:50 10/30/19 16:49 Lovenox SUBCUT 40 mg Q24H CHELSEY Administration Potassium Chloride/Dextrose/Sod Cl 20 meq in 1,000 mls @ 100 mls/hr 10/30/19 15:50 10/31/19 06:31 D5-Ns 0.45% + Kcl 20 Meq IV 100 mls/hr .Q10H CHELSEY Administration Pantoprazole Sodium 40 mg 10/31/19 09:00 10/31/19 09:43 Protonix PO 40 mg DAILY CHELSEY Administration Quetiapine Fumarate 50 mg 10/30/19 18:00 10/31/19 09:43 Seroquel PO 50 mg BID CHELSEY Administration Timolol Maleate 1 drop 10/30/19 18:00 10/31/19 09:43 Timoptic 0.5% Op Soln EYE-BOTH 1 spray BID CHELSEY Administration Tramadol HCl 100 mg 10/30/19 15:50 10/31/19 03:43 Ultram PO 100 mg DAILY PRN Administration Pain PFSH Acute PFSH: Medical History DEWAYNE (generalized anxiety disorder) HTN (hypertension) Osteoarthritis Surgical History H/O cataract extraction Bilateral - Dr Casas H/O neck surgery H/O shoulder surgery 2012 Dr Live in [place] History of colonoscopy 2010 - normal per patient History of hysterectomy Hx of tonsillectomy Family History Mother Dementia Father Cancer Lymphoma Brother Diabetes Social History Smoking and tobacco status: never smoked Vitals/I&O/Wt Last Vital Signs Temp 97.8 F 10/31/19 08:49 Pulse 56 L 10/31/19 14:43 Resp 12 10/31/19 11:52 BP 112/50 10/31/19 11:52 Pulse Ox 98 10/31/19 14:43 10/30/19 10/31/19 10/31/19 22:59 06:59 14:59 Intake Total 1000 / 1000 Balance 1000 / 1000 Weight last 48 hrs Weight 136 lb 4.8 oz Weight 136 lb 4.8 oz Weight 109 lb Physical Exam Narrative: EXAM NARRATIVE: GENERAL: The patient was sleeping and difficult to arouse. She had a one-on-one sitter at the bedside. MENTAL STATUS: I was never able to fully awaken this patient enough that she open her eyes or regarded me. She complained that she was cold. She told me she was born [place] but would not answer other simple questions about her origins. She could not tell me her age. She could speak simple sentences such as quit that. CRANIAL NERVES: I could not test visual acuity because she would not keep her eyes open. Eye movements were full. Facial movements were symmetric as she attempted to keep her eyes closed and grimaced. Tongue was midline in the mouth and she managed her secretions. MOTOR: She has diffuse profound gegenhalten. Strength is excellent throughout. SENSATION: She withdraws from touch in all 4 extremities. COORDINATION: No specific tremor or cerebellar signs. DEEP TENDON REFLEXES: Absent throughout. Toes upgoing. GAIT: Unable to test. Profound gegenhalten with rigidity in the bed. HEENT: Normocephalic without dysmorphic features. Conjunctivae were not injected and sclerae were nonicteric. NECK: Rigid in all directions. CHEST: Clear to auscultation. CARDIOVASCULAR: The heart sounds were normal without murmur or gallop. Regular rate and rhythm. Peripheral pulses were 2+ throughout in the distal extremities. She is not edematous at this time Data Micro: Micro: Microbiology 10/30/19 09:35 Blood Culture - Pr eliminary Blood NEGATIVE TO LINDA E 10/30/19 14:52 Blood Culture - Pr eliminary Blood SPECIMEN COLLEC NOHEMI Other Data: Other data: CT scan of the head shows diffuse atrophy unchanged from January. She has ventriculomegaly consistent with hydrocephalus ex vacuo A&P Assessment and plan (1) Alzheimer disease: Gradually progressive dementia over the last more than 5 years consistent with Alzheimer disease. She has gegenhalten currently and diffuse encephalopathy most likely on a toxic basis. She had typical agitation associated with a change in circumstances when her was hospitalized and then developed severe rigidity with Risperdal. As patients with Alzheimer's disease advanced they are more likely to show motor abnormalities with parkinsonian features and there may be some overlap with Lewy body disease in this patient. I would advocate simplifying her medical regimen by taking her off of Cogentin, off of meclizine and quetiapine, stop Zofran and lorazepam and start her on a low dose of Zyprexa 2.5 mg at at bedtime up to twice daily. I will be glad to see her as an outpatient. I will talk with Dr. Hampton and make sure he is comfortable with this. I talked with her daughter Hortensia Status: Acute Code(s): G30.9 - Alzheimer's disease, unspecified; F02.80 - Dementia in other diseases classified elsewhere without behavioral disturbance (2) Toxic encephalopathy: Status: Acute Code(s): G92 - Toxic encephalopathy Consult Attestations Medical Necessity Statement: Profound agitation requiring frequent medication adjustments Time Spent in Patient Care: Greater than 35 minutes Coding Level of Care Code Acute Manufacturing Production Technician for [facility] Diagnoses Alzheimer disease G30.9; F02.80 Toxic encephalopathy G92 Time Spent (min) 60 Comment Time spent interacting with the patient's caregiver, her physicians including Dr. Brown and Dr. Hampton
[2019-10-31] MEDS: enoxaparin 40 mg/0.4 mL Syringe SUBCUT (15:18)
[2019-10-31] MEDS: acetaminophen 325 mg Tablet 650 MG PO (19:29)
[2019-10-31] MEDS: TRAMadol 50 mg Tablet PO (20:40)
[2019-10-31] MEDS: OLANZapine 5 mg TABLET 2.5 MG PO (21:10)
[2019-10-31] MEDS: LORazepam 0.5 mg Tablet PO (22:08)
[2019-11-01] VITALS: BP 125/68; PULSE 67; RESP 22; TEMP 36.6; O2SAT 93
--- NOTE | 2019-11-01 02:17 | PC.NURSE ---
patient has been very anxious/agitated this night. fidgeting, trying to get out of the bed, wanting to get up, to be changed evven when dry. she has had a one time dose of tramadol at bedtime of 5 mg, a dose of ativan and one of tylenol and patient still had not seemed settled. patent is currently settled for the moment.
--- NOTE | 2019-11-01 03:10 | PC.NURSE ---
Full patient and linen change 4 times in less than a hour. Patient was incontinent. Patient was restless and anxious. Patient was trying to climb out of bed. Stating help me. Patient has a one on one sitter. RN has been notified.
[2019-11-01] MEDS: TRAMadol 50 mg Tablet 100 MG PO ×2 (03:19→11:26)
--- NOTE | 2019-11-01 03:25 | PC.NURSE ---
patient is very restless and confused. talked to her about trying to rest, letting the medicine work and will get a warm pad to maybe help her feel better and maybe help with sleep.
[2019-11-01 04:00] VITALS: BP 125/68; BP 134/64; PULSE 67; PULSE 74; RESP 22; RESP 26; TEMP 36.6; O2SAT 94
[2019-11-01 04:16] LABS: Basophils % 0.1 %; Eosinophils # 0.1 10^3/uL (0.0-0.8); Eosinophils % 0.6 %; Hematocrit 29.3 % (37.0-47.0); Hemoglobin 9.1 g/dL (11.5-15.3); Lymphocytes # 2.5 10^3/uL (0.8-4.8); Lymphocytes % 31.2 %; Mean Corpuscular HGB Conc 31.1 g/dL (30.0-36.0); Mean Corpuscular Hemoglobin 30.1 pg (28.0-34.0); Mean Platelet Volume 9.3 fL (7.4-10.4); Monocytes # 0.4 10^3/uL (0.2-0.9); Monocytes % 5.3 %; Neutrophils # 4.9 10^3/uL (1.8-7.7); Neutrophils % 62.7 %; Nucleated Red Blood Cells % 0 %; Platelet Count 216 10^3/cmm (130-400); Red Blood Count 3.02 10^6/uL (4.1-5.3); Red Cell Distribution Width 13.2 % (12.1-15.1); White Blood Count 7.9 10^3/uL (4.0-10.0)
[2019-11-01 04:37] LABS: Anion Gap 10.7 (5-19); Blood Urea Nitrogen 14 mg/dL (8-23); Calcium 8.5 mg/dL (8.5-10.5); Carbon Dioxide 28 mmol/L (22-29); Chloride 99 mmol/L (98-107); Glucose 92 mg/dL (65-115); Osmolality Calculated 274 mOsm/kg (285-295); Potassium 3.7 mmol/L (3.5-5.1); Sodium 134 mmol/L (136-145)
--- NOTE | 2019-11-01 05:11 | PC.NURSE ---
Patient was incontinent 2 times within 5 minutes. Complete linen and gown changed. Sitter at bedside. Patient trying to climb out of bed. RN notified.
--- NOTE | 2019-11-01 05:18 | PC.NURSE ---
patient continues to be restless and confused, trying to get out of the bed, has been urinating 3 to 4 times an hour right after being cleaned up and many times soaking the brief and linens directly after a complete change. patient is on fluids at 75 an hour but not drinking much overly much. she is not on lasix.
[2019-11-01 06:00] VITALS: BMI 25.2
[2019-11-01 07:30] VITALS: BP 137/64; PULSE 65; RESP 17; TEMP 36.8; O2SAT 96
[2019-11-01] MEDS: pantoprazole DR 40 mg Tablet PO (09:21)
[2019-11-01] MEDS: timolol 0.5% Op Soln 5 mL Btl 1 DROP EYE-BOTH (09:21)
[2019-11-01] MEDS: duloxetine 60 mg Capsule PO (09:22)
[2019-11-01] MEDS: levofloxacin-dextrose 5 % 750 MG/150 ML PREMIX 150 MG IV (09:22)
--- NOTE | 2019-11-01 11:01 | P.DS_ITS ---
Discharge Providers Date of Admission: 10/30/19 11:20 Date of Discharge: November 01, 2019 Attending Provider at Admission: Alexandra Brwon DO Attending Provider at Discharge: Alexandra Brown DO Primary Care Provider: Jas Coffey APN Diagnoses at Discharge Discharge Diagnosis (1) Alzheimer disease: Status: Acute (2) Toxic encephalopathy: Status: Acute Reason for Visit Reason for Visit: Reason For Visit: PNEUMONIA Hospital Course Hospital Course: Patient was seen and evaluated in the emergency department noted to have concern for acute on chronic encephalopathy and pneumonia and admitted for further evaluation and treatment. She was continued on IV Levaquin and due to concern for aspiration speech therapy was consulted. She was placed on a pur?ed, dysphagia level 1 diet with thin liquids and continued to improve. Neurology consultation was obtained due to patient's rapid decline over the past several months with increased confusion and worsening dementia. Patient was recommended to have adjustment in medications, including discontinuation of Seroquel and Zyprexa was started at 2.5 mg at bedtime with 2.5 mg in the morning as needed. Patient continued to do well she was weaned to her home oxygen by nasal cannula. Patient was more alert on date of discharge and rigidity seem to be much improved. Discussed with her daughter about plan of care and neurology follow-up in the outpatient setting, she verbalized understanding and agreed with plan. Physical Exam Const: COMMON NORMALS: alert EXAM LIMITATIONS: altered mental status ORIENTATION/CONSCIOUSNESS: Yes awake, Yes oriented to person and Yes confused HENMT: COMMON NORMALS: normocephalic and head/scalp atraumatic HEAD & SCALP: normocephalic and atraumatic Eye: COMMON NORMALS: PERRL PUPIL: Yes PERRL Neck/C-Spine: COMMON NORMALS: supple GENERAL: Yes normal visual inspection Resp: COMMON NORMALS: no retractions OTHER: Oxygen by nasal cannula in place, diminished breath sounds bilaterally Cardio: COMMON NORMALS: regular rate and regular rhythm RATE: regular rate RHYTHM: regular rhythm GI: COMMON NORMALS: soft to palpation and non-tender INSPECTION: No abdominal distension AUSCULTATION: Yes normoactive bowel sounds PALPATION: Yes soft Extremity: NARRATIVE EXTREMITY EXAM: 1+ pitting edema in the lower extremities bilaterally Neuro: SENSORIUM/ORIENTATION: Yes alert and Yes oriented to person OTHER: Pleasantly confused, improved mental status today. Rigidity has improved Psych: MEMORY/COGNITION: Yes memory grossly impaired Skin: COMMON NORMALS: no rashes or lesions noted GENERAL SKIN EXAM: no rashes or lesions noted Discharge Data Data Completed and Pending: Completed Studies During Hospitalization Category Date Time Status CT head wo con* 7 0450 Routine Cat Scan 10/30/19 16:10 Completed XR chest 1V brandy ble 45769 Stat Exams 10/30/19 09:16 Completed CV echo complete* [id number] Routine Ultrasound 10/30/19 14:11 Completed Pending at discharge Category Date Time Status Arterial Blood Ga s Full Routine Lab 10/30/19 09:15 Results Blood Culture Sta t Lab 10/30/19 14:52 Results Sputum Culture an d Gram Stain Stat Lab 10/30/19 15:50 Uncollected Labs from last 24 hours 11/01/19 11/01/19 03:37 03:37 WBC 7.9 RBC 3.02 L Hgb 9.1 L Hct 29.3 L MCV 97.0 MCH 30.1 MCHC 31.1 RDW 13.2 Plt Count 216 MPV 9.3 Neut % (Auto) 62.7 Lymph % (Auto) 31.2 [place] % (Auto) 5.3 Eos % (Auto) 0.6 Baso % (Auto) 0.1 Neut # (Auto) 4.9 Lymph # (Auto) 2.5 [place] # (Auto) 0.4 Eos # (Auto) 0.1 Baso # (Auto) 0.0 Nucleated RBC % (a uto) 0 Nucleated RBCs # 0.0 Sodium 134 L Potassium 3.7 Chloride 99 Carbon Dioxide 28 Anion Gap 10.7 BUN 14 Creatinine 0.9 Glucose 92 Calculated Osmolal ity 274 L Calcium 8.5 Vitals: Last Vital Signs Temp 98.2 F 11/01/19 07:30 Pulse 65 11/01/19 07:30 Resp 17 11/01/19 07:30 BP 137/64 11/01/19 07:30 Pulse Ox 96 11/01/19 07:30 Discharge Plan Discharge Patient Disposition: Xfer SNF Condition: Stable Prescriptions: New olanzapine 5 mg Tablet 2.5 mg PO BEDTIME 30 Days Qty: 30 RF: 0 olanzapine 5 mg Tablet 2.5 mg PO QAM PRN (Reason: Anxiety) 30 Days Qty: 15 RF: 0 Levaquin 750 mg tablet 750 mg PO DAILY 7 Days Qty: 7 RF: 0 Continued alfuzosin 10 mg tablet extended release 24 hr 10 mg PO BEDTIME RF: 0 tramadol 50 mg tablet 100 mg PO DAILY PRN (Reason: Pain) RF: 0 latanoprost 0.005 % drops 1 drop ophthalmic (eye) BEDTIME RF: 0 acetaminophen [Tylenol Extra Strength] 500 mg tablet 500 mg PO DAILY PRN (Reason: Pain) RF: 0 timolol 0.5 % drops 1 drop ophthalmic (eye) BID RF: 0 pantoprazole 40 mg tablet,delayed release (DR/EC) 40 mg PO DAILY RF: 0 duloxetine 60 mg Capsule,Delayed Release(Dr/Ec) 60 mg PO DAILY RF: 0 Discontinued lorazepam 0.5 mg tablet 0.5 mg PO BEDTIME RF: 0 meclizine 25 mg tablet 12.5 mg PO TID PRN (Reason: Dizziness) RF: 0 Premarin 0.625 mg Tablet 0.625 mg PO DAILY RF: 0 benztropine 1 mg Tablet 1 mg PO BID RF: 0 Levaquin 500 mg Tablet 500 mg PO DAILY RF: 0 Seroquel 50 mg Tablet 50 mg PO BID RF: 0 Discharge Orders: Discharge Order (Routine); Ordered 11/01/19 Ordered By: Alexandra Brown Referrals: Tanna Sawyer MD [Physician] - 6 Weeks Kirill Hampton MD [Physician] - 4-7 days Discharge Diet: As Directed Discharge Activity: Increase activity as tolerated and As per PT/OT instructions Activity Restrictions/Additional Instructions: Diet: Level One dysphasia, thin liquids Started on Zyprexa 2.5 mg at bedtime with morning dose as needed for anxiety Follow-up with neurology in 4 to 6 weeks or as first appointment is available Follow-up with primary care provider, Dr. Hampton in 3 to 4 days Continue with oxygen per protocol, by nasal cannula Continue with the Levaquin as prescribed Discharge to [facility] Discharge Attestations Time Spent in Discharge Care*: greater than 30 min Specific Discharge Activities: Specific discharge activities: educating and/or supporting family/caregiver Quality Metrics Clinical Quality Measures During this hospital stay, did patient experience: None Coding Level of Care Code Acute Presidential Support Specialist for [facility] Fwd Diagnoses Alzheimer disease G30.9; F02.80 Toxic encephalopathy G92
--- NOTE | 2019-11-01 11:23 | PC.NURSE ---
OK'D PER DR MAGUIRE TO GIVE ONE TIME EXTRA DOSE OF TRAMADOL 100MG PO.
[2019-11-01 11:24] VITALS: BP 138/76; PULSE 81; RESP 20; TEMP 36.4; O2SAT 98
[2019-11-01 11:25] VITALS: BP 137/64; PULSE 65; RESP 17; TEMP 36.8; O2SAT 96
[2019-11-01] MEDS: OLANZapine 5 mg TABLET 2.5 MG PO (11:27)
[2019-11-01 12:32] VITALS: PULSE 60; O2SAT 99
--- NOTE | 2019-11-01 14:40 | PC.SOCIAL ---
Patient unable to understand what needed to be explained about the BPCI Advanced. No family in the room. Patient had a one on one. Unable to get a signature. unable to reach family.
== END 2019-11-01 13:13 | disposition skilled nursing facility (03) | DRG 177 ==
LOC: ER 09:18 → ICU 12:47 → CSU 14:59
PROVIDERS: Admitting Provider Family Medicine; Emergency Provider Family Medicine; Family Provider Nurse Practitioner Family; PCP Nurse Practitioner Family; Visit Provider Family Medicine
DX: J69.0 Pneumonitis due to inhalation of food and vomit (principal); G92 Toxic encephalopathy; F02.80 Dementia in other diseases classified elsewhere, unspecified severity, without behavioral disturbance, psychotic disturbance, mood disturbance, and anxiety; G30.9 Alzheimer's disease, unspecified; R13.10 Dysphagia, unspecified; G20 Parkinson's disease; Z79.82 Long term (current) use of aspirin; Z79.891 Long term (current) use of opiate analgesic; Z79.899 Other long term (current) drug therapy; Z79.2 Long term (current) use of antibiotics
CPT/HCPCS: 12345; 36415; 36600; 70450; 71045; 80048; 80051; 80053; 81003; 82810; 83540; 83550; 83605; 83880; 83986; 84439; 84443; 84484; 85025; 87040; 87804; 92523; 92526; 92610; 93005; 93306; 94664; 96372; 96375; 97165; 99283; A9270; J1650; J1956; J2060

== ENCOUNTER 2021-06-23 20:36 | Emergency (ER) | payer MEDICARE, OTHER, SELFPAY ==
[2021-06-23 20:37] VITALS: BP 164/109; PULSE 91; RESP 18; TEMP 36.9; O2SAT 93; BMI 32.0
--- NOTE | 2021-06-23 20:44 | ED_ITS ---
HPI - Fall General: Chief Complaint: Fall Stated Complaint: FALL Time Seen by Provider: 06/23/21 20:39 Source: patient and EMS Mode of arrival: EMS Limitations: no limitations History of Present Illness: HPI Narrative: 85-year-old female who has a history dementia states she fell this morning she does have a contusion to the left forehead she also has a laceration to her left elbow she denies any pain currently she has been ambulatory. She does have dementia does not really remember the fall does not know she tripped. She denies any chest pain or abdominal pain. Associated symptoms-after fall: Denies abdominal pain, chest pain, headache(s) or neck pain Review of Systems Const: Denies: fever(s), chills, body aches or change in appetite Eyes: Denies: blurry vision or eye discomfort ENMT: Denies: throat pain or dental pain Card: Denies: chest pain Resp: Denies: dyspnea GI: Denies: abdominal pain, nausea, vomiting or diarrhea : Denies: dysuria Musc: Denies: neck pain or back pain Skin/Breast: Denies: rash Neuro: Denies: headache(s) Psych: Denies: depression Abelino/Lymph: Denies: easy bruising All/Imm: Denies: urticaria PFSH ED PFSH: Medical History (Updated 06/23/21 @ 22:24 by Cindy Whitney MD) DEWAYNE (generalized anxiety disorder) HTN (hypertension) Osteoarthritis Surgical History H/O cataract extraction Bilateral - Dr Casas H/O neck surgery H/O shoulder surgery 2012 Dr Live in [place] History of colonoscopy 2011 - normal per patient History of hysterectomy Hx of tonsillectomy Family History Mother Dementia Father Cancer Lymphoma Brother Diabetes Social History Smoking and tobacco status: never smoked Physical Exam Const: COMMON NORMALS: no acute distress, patient oriented x3 and healthy appearing HENMT: COMMON NORMALS: normocephalic HEAD & SCALP: normocephalic OTHER: Contusion to left forehead Eye: COMMON NORMALS: Equal, round and reactive pupils present and EOMs intact bilaterally PUPIL: Yes Equal, round and reactive pupils present Neck/C-Spine: COMMON NORMALS: full ROM and supple Chest: COMMONS NORMALS: normal inspection of the chest and normal palpation of entire chest wall Resp: COMMON NORMALS: normal respiratory effort, No retractions, No use of accessory muscles and clear to auscultation bilaterally AUSCULTATION: clear to auscultation bilaterally Cardio: COMMON NORMALS: regular rate, regular rhythm and No murmurs present (Cardio) RATE: regular rate RHYTHM: regular rhythm GI: COMMON NORMALS: Normal to inspection, nondistended, normoactive bowel sounds present, Soft to palpation, non-tender and no masses PALPATION: Yes Soft to palpation Extremity: COMMON NORMALS: full ROM NARRATIVE EXTREMITY EXAM: 2 cm laceration to left inner elbow Neuro: COMMON NORMALS: patient oriented x3, moves all extremities and no focal motor deficits Psych: COMMON NORMALS: mental status grossly normal, Normal thought process present and cooperative THOUGHT PROCESS: Normal thought process present Skin: COMMON NORMALS: no rashes or lesions noted and no wounds GENERAL SKIN EXAM: no rashes or lesions noted Course Vital Signs: Vital signs: Vital Signs Temperature 98.4 F 06/23/21 20:37 Pulse Rate 91 06/23/21 20:37 Respiratory Rate 18 06/23/21 20:37 Blood Pressure 164/109 06/23/21 20:37 Pulse Oximetry 93 06/23/21 20:37 MDM - Fall MDM Narrative: Medical decision making narrative: Patient presents here with a fall closed head injury from a fall. Patient also with an elbow laceration laceration was repaired unsure of the age so it was closed loosely and will place her on antibiotics and told family watch for any signs of infection return if she has any signs she is to have sutures removed in 10 to 14 days no signs of any major injuries she is stable for discharge return if worsening. Imaging Data^: CT Head: Radiologist's impression: [address] [place] [address] CT Scan Report Signed Patient: Beena Sam Unit #: [id number] : 1935 Age/Sex: 85 / F ADM Date: 06/23/21 Loc: ER Room/Bed: Attending Dr: Ordering Provider/Ordering MD: Cindy Whitney MD Date of Service: 06/23/21 Procedure(s): CT head wo con* [id number] Accession Number(s): [id number] Report Number: [id number] PROCEDURE INFORMATION: Exam: CT Head Without Contrast Exam date and time: 06/23/2021 8:43 PM Age: 85 years old Clinical indication: Injury or trauma; Fall; Blunt trauma (contusions or hematomas); Injury details: HX dementia TECHNIQUE: Imaging protocol: Computed tomography of the head without contrast. Radiation optimization: All CT scans at this facility use at least one of these dose optimization techniques: automated exposure control; mA and/or kV adjustment per patient size (includes targeted exams where dose is matched to clinical indication); or iterative reconstruction. COMPARISON: CT head wo con* [id number] 10/30/2019 5:44 PM RADIATION DOSE METRICS: Total DLP (mGy-cm): 899.39 FINDINGS: Brain: Moderate cortical volume loss. Moderate hypodensities in supratentorial periventricular and subcortical white matter, consistent with microangiopathy. No intracranial hemorrhage. Cerebral ventricles: Prominence of the lateral ventricles, temporal horns, and 3rd ventricle. Paranasal sinuses: Small polyp or retention cyst in a posterior right ethmoid air cell. Opacified left ethmoid air cell. No air-fluid levels. Mastoid air cells: Visualized mastoid air cells are well aerated. Vasculature: No hyperdense artery. Bones/joints: Unremarkable. No acute fracture. Soft tissues: Left frontal scalp hematoma. CT/CT head wo con* [id number] IMPRESSION: 1. No fracture or intracranial hemorrhage. 2. Left frontal scalp hematoma. 3. Prominence of the ventricles may relate to central volume loss. Normal pressure hydrocephalus is not excluded. Radiation Dose CTDIVOL = (mGy): DLP = 899.39 (mGy-cm) Dictated By: Elpidio Balderas Signed By: Elpidio Balderas Signed Date/Time: 06/23/212129 DD/ 42 ct face: Radiologist's impression: [address] [address] [address] Scan Report Signed Patient: Beena Sam Unit #: [id number] : 1935 Age/Sex: 85 / F ADM Date: 06/23/21 Loc: ER Room/Bed: Attending Dr: Ordering Provider/Ordering MD: Cindy Whitney MD Date of Service: 06/23/21 Procedure(s): CT facial bones wo con* [id number] Accession Number(s): [id number] Report Number: [id number] PROCEDURE INFORMATION: Exam: CT Maxillofacial Without Contrast Exam date and time: 06/23/2021 8:55 PM Age: 85 years old Clinical indication: Injury or trauma; Fall; Work related; Blunt trauma (contusions or hematomas); Cheek bone and orbit/periorbital; Left; Prior surgery TECHNIQUE: Imaging protocol: Computed tomography images of the face without contrast. Radiation optimization: All CT scans at this facility use at least one of these dose optimization techniques: automated exposure control; mA and/or kV adjustment per patient size (includes targeted exams where dose is matched to clinical indication); or iterative reconstruction. COMPARISON: CT head wo con* [id number] 06/23/2021 8:53 PM RADIATION DOSE METRICS: Total DLP (mGy-cm): 825.23 FINDINGS: Orbital cavity: Prior cataract surgery. Bones/joints: No acute fracture. Paranasal sinuses: Retention cyst in the left maxillary sinus. Small polyp or retention cyst in a posterior right ethmoid air cell. Opacified posterior left ethmoid air cell. Soft tissues: Left periorbital soft tissue contusion. Left frontal scalp small hematoma. Dental: Multiple dental appliances and implants. CT/CT facial bones wo con* [id number] IMPRESSION: 1. No fracture identified. 2. Left periorbital soft tissue contusion and frontal scalp hematoma. Radiation Dose CTDIVOL = (mGy): DLP = 825.23 (mGy-cm) Dictated By: Elpidio Balderas Signed By: Elpidio Balderas Signed Date/Time: 06/23/212137 DD/ [address]: Attestation: I personally reviewed and interpreted this imaging study as follows: Radiologist's impression: [address] [address] [address] Scan Report Signed Patient: Beena Sam Unit #: [id number] : 1935 Age/Sex: 85 / F ADM Date: 06/23/21 Loc: ER Room/Bed: Attending Dr: Ordering Provider/Ordering MD: Cindy Whitney MD Date of Service: 06/23/21 Procedure(s): CT cervical spin wo con* [id number] Accession Number(s): [id number] Report Number: [id number] PROCEDURE INFORMATION: Exam: CT Cervical Spine Without Contrast Exam date and time: 06/23/2021 8:43 PM Age: 85 years old Clinical indication: Injury or trauma; Fall; Blunt trauma TECHNIQUE: Imaging protocol: Computed tomography images of the cervical spine without contrast. Radiation optimization: All CT scans at this facility use at least one of these dose optimization techniques: automated exposure control; mA and/or kV adjustment per patient size (includes targeted exams where dose is matched to clinical indication); or iterative reconstruction. COMPARISON: CT Cervical Spine wo* [id number] 01/28/2017 2:34 PM RADIATION DOSE METRICS: Total DLP (mGy-cm): 653.63 FINDINGS: Bones/joints: The vertebral body stature is maintained. No fracture. Trace degenerative anterior subluxation of C4 on C5. The facets are intact with hypertrophic degenerative changes. Discs/Spinal canal/Neural foramina: Multilevel bilateral bony foraminal stenosis. No significant central canal stenosis. Lungs: Mild scarring in the lung apices. Soft tissues: Unremarkable. CT/CT cervical spin wo con* [id number] IMPRESSION: No fracture or acute finding. Radiation Dose CTDIVOL = (mGy): DLP = 653.63 (mGy-cm) Dictated By: Elpidio Baledras Signed By: Elpidio Balderas Signed Date/Time: 06/23/212141 DD/ 42 Xray Ortho: Radiologist's impression: [address] [address] XRay Report Signed Patient: Benea Sam Unit #: [id number] : 1935 Age/Sex: 85 / F ADM Date: 06/23/21 Loc: ER Room/Bed: Attending Dr: Ordering Provider/Ordering MD: Cindy Whitney MD Date of Service: 06/23/21 Procedure(s): XR elbow LT min 3V* [id number] Accession Number(s): [id number] Report Number: [id number] PROCEDURE INFORMATION: Exam: XR Left Elbow Exam date and time: 06/23/2021 8:44 PM Age: 85 years old Clinical indication: Injury or trauma; Fall; Blunt trauma (contusions or hematomas); Elbow; Left TECHNIQUE: Imaging protocol: XR Left elbow. Views: 3 or more views. COMPARISON: No relevant prior studies available. FINDINGS: Bones/joints: Ossification or calcification over the lateral epicondyle of the elbow suggesting possible sequela from lateral epicondylitis. Soft tissues: Normal. XR/XR elbow LT min 3V* [id number] IMPRESSION: 1. Ossification or calcification over the lateral epicondyle of the elbow suggesting possible sequela from lateral epicondylitis. 2. No acute findings. Radiation Dose CTDIVOL = (mGy): DLP = (mGy-cm) Dictated By: Quirino Garcias MD Signed By: Quirino Garcias MD Signed Date/Time: 06/23/212138 DD/ 43 CXR: Radiologist's impression: [address] [place] [address] XRay Report Signed Patient: Beena Sam Unit #: [id number] : 1935 Age/Sex: 85 / F ADM Date: 06/23/21 Loc: ER Room/Bed: Attending Dr: Ordering Provider/Ordering MD: Cindy Whitney MD Date of Service: 06/23/21 Procedure(s): XR chest 1V portable [id number] Accession Number(s): [id number] Report Number: [id number] PROCEDURE INFORMATION: Exam: XR Chest Exam date and time: 06/23/2021 9:10 PM Age: 85 years old Clinical indication: Other: Congestion TECHNIQUE: Imaging protocol: XR of the chest. Views: 1 view. COMPARISON: CR XR chest 1V portable [id number] 10/30/2019 9:23 AM FINDINGS: Lungs: Unremarkable. No consolidation. Pleural spaces: Unremarkable. No pleural effusion. No pneumothorax. Heart/Mediastinum: Unremarkable. No cardiomegaly. Bones/joints: Unremarkable. XR/XR chest 1V portable [id number] IMPRESSION: No acute findings. Radiation Dose CTDIVOL = (mGy): DLP = (mGy-cm) Dictated By: Quirino Garcias MD Signed By: Quirino Garcias MD Signed Date/Time: 06/23/212148 DD/ 09 Discharge Plan Discharge Patient Disposition: Home Clinical Impression: Fall, Closed head injury, Elbow laceration Condition: Stable Prescriptions: New cephalexin 500 mg capsule 500 mg PO TID 7 Days Qty: 21 RF: 0 No Action alfuzosin 10 mg tablet extended release 24 hr 10 mg PO BEDTIME RF: 0 latanoprost 0.005 % drops 1 drop ophthalmic (eye) BEDTIME RF: 0 acetaminophen [Tylenol Extra Strength] 500 mg tablet 500 mg PO DAILY PRN (Reason: Pain) RF: 0 timolol 0.5 % drops 1 drop ophthalmic (eye) BID RF: 0 pantoprazole 40 mg tablet,delayed release (DR/EC) 40 mg PO DAILY RF: 0 hydrochlorothiazide 25 mg tablet 25 mg PO DAILY Qty: 30 RF: 0 pregabalin [Lyrica] 25 mg capsule 25 mg PO DAILY Qty: 30 RF: 0 (DME) wheelchair See Rx Instructions .Route .MEDSUPPLY Qty: 1 RF: 0 olanzapine [Zyprexa] 2.5 mg tablet 5 mg PO .THREE TIMES DAILY RF: 0 tramadol 50 mg tablet 50 mg PO Q6H PRN (Reason: Pain) Qty: 30 RF: 0 (DME) DEPENDS/BRIEFS See Rx Instructions .Route .MEDSUPPLY Qty: 180 RF: 3 duloxetine 60 mg Capsule,Delayed Release(Dr/Ec) 60 mg PO DAILY RF: 0 Discharge Orders: Discharge ED (Routine); Ordered 06/23/21 Ordered By: Cindy Whitney Referrals: Kirill Hampton MD [Primary Care Provider] - 7-10 days Discharge Diet: Advance as tolerated Discharge Activity: Resume usual activity Patient Instructions: Laceration (ED) Activity Restrictions/Additional Instructions: sutures removed in 10 days Coding Level of Care Code 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
--- NOTE | 2021-06-23 20:55 | CTR_ITS ---
PROCEDURE INFORMATION: Exam: CT Maxillofacial Without Contrast Exam date and time: 06/23/2021 8:55 PM Age: 85 years old Clinical indication: Injury or trauma; Fall; Work related; Blunt trauma (contusions or hematomas); Cheek bone and orbit/periorbital; Left; Prior surgery TECHNIQUE: Imaging protocol: Computed tomography images of the face without contrast. Radiation optimization: All CT scans at this facility use at least one of these dose optimization techniques: automated exposure control; mA and/or kV adjustment per patient size (includes targeted exams where dose is matched to clinical indication); or iterative reconstruction. COMPARISON: CT head wo con* [id number] 06/23/2021 8:53 PM RADIATION DOSE METRICS: Total DLP (mGy-cm): 825.23 FINDINGS: Orbital cavity: Prior cataract surgery. Bones/joints: No acute fracture. Paranasal sinuses: Retention cyst in the left maxillary sinus. Small polyp or retention cyst in a posterior right ethmoid air cell. Opacified posterior left ethmoid air cell. Soft tissues: Left periorbital soft tissue contusion. Left frontal scalp small hematoma. Dental: Multiple dental appliances and implants. CT/CT facial bones wo con* [id number] IMPRESSION: 1. No fracture identified. 2. Left periorbital soft tissue contusion and frontal scalp hematoma. Radiation Dose CTDIVOL = (mGy): DLP = 825.23 (mGy-cm)
--- NOTE | 2021-06-23 21:10 | XRR_ITS ---
PROCEDURE INFORMATION: Exam: XR Chest Exam date and time: 06/23/2021 9:10 PM Age: 85 years old Clinical indication: Other: Congestion TECHNIQUE: Imaging protocol: XR of the chest. Views: 1 view. COMPARISON: CR XR chest 1V portable [id number] 10/30/2019 9:23 AM FINDINGS: Lungs: Unremarkable. No consolidation. Pleural spaces: Unremarkable. No pleural effusion. No pneumothorax. Heart/Mediastinum: Unremarkable. No cardiomegaly. Bones/joints: Unremarkable. XR/XR chest 1V portable [id number] IMPRESSION: No acute findings. Radiation Dose CTDIVOL = (mGy): DLP = (mGy-cm)
[2021-06-23] MEDS: cefTRIAXone 1,000 MG in lidocaine 1% 2.1 ML 1 MG IM (21:58)
[2021-06-23 23:35] VITALS: BP 153/83; PULSE 66; RESP 18; O2SAT 96
== END 2021-06-23 23:37 | disposition home or self-care (01) ==
PROVIDERS: Emergency Provider Emergency Medicine; PCP Internal Medicine
DX: S00.83XA Contusion of other part of head, initial encounter (principal); W18.30XA Fall on same level, unspecified, initial encounter; S51.019A Laceration without foreign body of unspecified elbow, initial encounter
CPT/HCPCS: 70450; 70486; 71045; 72125; 73080; 96372; 99283; J0696

== ENCOUNTER 2021-11-20 01:46 | Emergency (ER) | payer MEDICARE, OTHER, SELFPAY ==
[2021-11-20 01:51] VITALS: BP 163/81; PULSE 85; RESP 20; TEMP 37; O2SAT 96; BMI 28.3
--- NOTE | 2021-11-20 01:53 | CTR_ITS ---
PROCEDURE INFORMATION: Exam: CT Head Without Contrast Exam date and time: 11/20/2021 2:04 AM Age: 85 years old Clinical indication: Injury or trauma; Blunt trauma (contusions or hematomas); Patient HX: Fall at retirement. Hematoma to RT fronal. ; Additional info: Head injury TECHNIQUE: Imaging protocol: Computed tomography of the head without contrast. Radiation optimization: All CT scans at this facility use at least one of these dose optimization techniques: automated exposure control; mA and/or kV adjustment per patient size (includes targeted exams where dose is matched to clinical indication); or iterative reconstruction. COMPARISON: CT head wo con* [id number] 06/23/2021 8:53 PM RADIATION DOSE METRICS: Total DLP (mGy-cm): 838.61 FINDINGS: Brain: There is marked cerebral atrophy. There is moderate diffuse heterogeneity of the white matter attenuation, consistent with chronic white matter ischemic changes. Negative for acute intracranial hemorrhage. Midline shift of brain. No mass effect on the brain. Rudolph matter and white matter interfaces are preserved. Cerebral ventricles: Mild ventriculomegaly. Paranasal sinuses: Visualized sinuses are unremarkable. No fluid levels. Mastoid air cells: Visualized mastoid air cells are well aerated. Bones/joints: Unremarkable. No acute fracture. Soft tissues: Right frontal scalp hematoma. CT/CT head wo con* [id number] IMPRESSION: Negative for intracranial injury.
--- NOTE | 2021-11-20 01:53 | W.ED.FALL ---
HPI - Fall General: Chief Complaint: Head Injury Stated Complaint: Fall Time Seen by Provider: 11/20/21 01:53 History of Present Illness: This is a pleasant 85-year-old female who resides at the memory unit of [facility]. Patient tonight had slipped and fell striking the right brow of her forehead. No loss of consciousness was noted. Incident occurred within 30 minutes prior to arrival to the ER. Patient is alert and responds to questioning. Patient is a very poor historian. MD complaint: fall Onset (ago): minute(s) Fall from: standing Fall witnessed: yes, by living facility staff Place fall occurred: care home/SNF Loss of consciousness: None Prolonged down time: no Symptoms prior to fall: none Context: tripped/slipped Location of injury: head Severity: mild Associated symptoms-after fall: Denies chest pain or neck pain Review of Systems General: Reports: 10 or more systems reviewed and unremarkable except in HPI and below Const: Denies: fever(s) Eyes: Denies: change in vision Card: Denies: chest pain Resp: Denies: dyspnea Musc: Denies: neck pain or back pain Skin/Breast: Reports: new lesions [facility] ED PFSH: Medical History (Updated 11/20/21 @ 02:39 by GWYN Helton) DEWAYNE (generalized anxiety disorder) HTN (hypertension) Osteoarthritis Surgical History H/O cataract extraction Bilateral - Dr Casas H/O neck surgery H/O shoulder surgery 2011 Dr Live in [place] History of colonoscopy 2010 - normal per patient History of hysterectomy Hx of tonsillectomy Family History Mother Dementia Father Cancer Lymphoma Brother Diabetes Social History Smoking and tobacco status: never smoked Physical Exam Const: COMMON NORMALS: alert HENMT: COMMON NORMALS: Normal external nose present HEAD & SCALP: abrasion (Right eyebrow) NOSE: Normal external nose present MOUTH: Normal oral and palatal mucosa present THROAT: posterior oropharynx normal Eye: COMMON NORMALS: Equal, round and reactive pupils present and EOMs intact bilaterally PUPIL: Yes Equal, round and reactive pupils present Neck/C-Spine: COMMON NORMALS: full ROM Chest: COMMONS NORMALS: normal palpation of entire chest wall Resp: COMMON NORMALS: normal respiratory effort and clear to auscultation bilaterally AUSCULTATION: clear to auscultation bilaterally Cardio: COMMON NORMALS: regular rate and regular rhythm RATE: regular rate RHYTHM: regular rhythm GI: COMMON NORMALS: Soft to palpation and non-tender PALPATION: Yes Soft to palpation Back/Pelvis: COMMON NORMALS: thoracic and lumbar spine normal to inspection (Decreased range of motion due to age) Extremity: COMMON NORMALS: normal to inspection and full ROM Neuro: SENSORIUM/ORIENTATION: Yes alert Psych: COMMON NORMALS: cooperative OTHER: GCS 15 Skin: TRAUMA: abrasion (Right eyebrow) Course Vital Signs: Vital signs: Vital Signs Temperature 98.6 F 11/20/21 01:51 Pulse Rate 85 11/20/21 01:51 Respiratory Rate 20 H 11/20/21 01:51 Blood Pressure 163/81 11/20/21 01:51 Pulse Oximetry 96 11/20/21 01:51 MDM - Fall Medical Decision Making 85-year-old female comes in today with injury to the right side of the forehead. Patient fell out of bed striking her head against the floor. No loss of consciousness was noted. On exam patient has no pain in the neck chest wall abdomen or pelvis. Patient was all extremities well. Abrasions noted to right forehead brow. Mild ecchymosis is also noted. No palpable fracture is noted. Good tracking of the eyes is noted. No focal neural deficits are noted. Patient has a history of dementia is a poor historian. Differential diagnosis includes intracranial bleeding, head injury, contusion to the forehead. CT of the head was negative for any intracranial bleeding or fracture. Reviewed exam with patient and patient's family member, daughter. They reported understanding of recommendations for monitoring and follow-up. Patient be transported back to care home. Lab Data Radiology Impressions Head CT 11/20/21 01:53 IMPRESSION: Negative for intracranial injury. Discharge Plan Discharge Patient Disposition: Home Clinical Impression: Closed head injury Qualifiers: Encounter type: initial encounter Qualified Code(s): S09.90XA - Unspecified injury of head, initial encounter Abrasion of forehead Qualifiers: Encounter type: initial encounter Qualified Code(s): S00.81XA - Abrasion of other part of head, initial encounter Condition: Stable Prescriptions: No Action alfuzosin 10 mg tablet extended release 24 hr 10 mg PO BEDTIME 0RF latanoprost 0.005 % drops 1 drop ophthalmic (eye) BEDTIME 0RF acetaminophen [Tylenol Extra Strength] 500 mg tablet 500 mg PO DAILY PRN (Reason: Pain) 0RF timolol 0.5 % drops 1 drop ophthalmic (eye) BID 0RF pantoprazole 40 mg tablet,delayed release (DR/EC) 40 mg PO DAILY 0RF hydrochlorothiazide 25 mg tablet 25 mg PO DAILY Qty: 30 0RF (DME) wheelchair See Rx Instructions .Route .MEDSUPPLY Qty: 1 0RF Rx Instructions: As directed (DME) DEPENDS/BRIEFS See Rx Instructions .Route .MEDSUPPLY Qty: 180 3RF Rx Instructions: As directed olanzapine 5 mg tablet 5 mg PO TID Qty: 90 3RF pregabalin [Lyrica] 25 mg capsule 25 mg PO DAILY Qty: 30 0RF tramadol 50 mg tablet 50 mg PO Q6H PRN (Reason: pain) Qty: 30 3RF duloxetine 60 mg Capsule,Delayed Release(Dr/Ec) 60 mg PO DAILY 0RF Discharge Orders: Discharge ED (Routine); Ordered 11/20/21 Ordered By: Anton Hwang Referrals: Ben Suazo DO [Primary Care Provider] - Discharge Diet: Usual diet Discharge Activity: Resume usual activity Patient Instructions: Head Injury (ED) Activity Restrictions/Additional Instructions: Resume usual activity. Drink plenty of fluids. Follow-up with primary care in 1 week. Return to ER for new concerns. Coding Level of Care Code ED Intensive Care Ambulance Paramedic for Gavi Fwchuckie Exam Comprehensive
[2021-11-20] MEDS: acetaminophen 500 mg Tablet 1000 MG PO (02:36)
[2021-11-20 03:09] VITALS: BP 157/82; PULSE 79; RESP 21
== END 2021-11-20 03:10 | disposition home or self-care (01) ==
PROVIDERS: Emergency Provider Nurse Practitioner Family; PCP Family Medicine
DX: S00.81XA Abrasion of other part of head, initial encounter (principal); W06.XXXA Fall from bed, initial encounter; Y92.122 Bedroom in nursing home as the place of occurrence of the external cause
CPT/HCPCS: 70450; 99283

== ENCOUNTER 2022-01-21 19:10 | Emergency (ER) | payer MEDICARE, OTHER, SELFPAY ==
[2022-01-21 19:11] VITALS: BP 136/61; PULSE 82; RESP 18; TEMP 36.8; O2SAT 97; BMI 25.6
--- NOTE | 2022-01-21 19:27 | XRR_ITS ---
PROCEDURE INFORMATION: Exam: XR Chest Exam date and time: 01/21/2022 8:00 PM Age: 86 years old Clinical indication: Other: AMS TECHNIQUE: Imaging protocol: XR of the chest. Views: 1 view. COMPARISON: CR (CHEST, ) 06/23/2021 9:14 PM FINDINGS: Lungs: Unchanged hyperinflation with scarring left lung base. No consolidation. Pleural spaces: Unremarkable. No pleural effusion. No pneumothorax. Heart/Mediastinum: Unremarkable. No cardiomegaly. Bones/joints: No acute abnormality. XR/XR chest 1V portable [id number] IMPRESSION: No acute findings.
--- NOTE | 2022-01-21 19:27 | CTR_ITS ---
PROCEDURE INFORMATION: Exam: CT Head Without Contrast Exam date and time: 01/21/2022 8:10 PM Age: 86 years old Clinical indication: Altered mental status/memory loss; Confusion or disorientation; Patient HX: AMS. Confusion. Patient states left side of face and left arm feels numb. TECHNIQUE: Imaging protocol: Computed tomography of the head without contrast. Radiation optimization: All CT scans at this facility use at least one of these dose optimization techniques: automated exposure control; mA and/or kV adjustment per patient size (includes targeted exams where dose is matched to clinical indication); or iterative reconstruction. COMPARISON: CT head wo con* [id number] 11/20/2021 2:04 AM RADIATION DOSE METRICS: Total DLP (mGy-cm): 726.85 FINDINGS: Brain: There is volume loss and periventricular low density compatible with chronic small vessel disease changes. There is no acute intracranial hemorrhage, edema or mass effect. There are small bifrontal benign hygromas. Cerebral ventricles: There is unchanged prominence of the ventricles compatible probable ex vacuo type changes. Paranasal sinuses: There is patchy mucosal thickening in the sinuses. Mastoid air cells: Visualized mastoid air cells are well aerated. Bones/joints: Unremarkable. No acute fracture. Soft tissues: Unremarkable. CT/CT head wo con* [id number] IMPRESSION: No acute intracranial abnormality.
[2022-01-21 19:42] LABS: Basophils % 0.3 %; Eosinophils # 0.2 10^3/uL (0.0-0.8); Eosinophils % 3.6 %; Hematocrit 32.9 % (37.0-47.0); Hemoglobin 10.6 g/dL (11.5-15.3); Lymphocytes # 2.9 10^3/uL (0.8-4.8); Lymphocytes % 47.9 %; Mean Corpuscular HGB Conc 32.2 g/dL (30.0-36.0); Mean Corpuscular Hemoglobin 29.4 pg (28.0-34.0); Mean Corpuscular Volume 91.1 fl (81-99); Mean Platelet Volume 9.7 fL (7.4-10.4); Monocytes # 0.4 10^3/uL (0.2-0.9); Monocytes % 7.2 %; Neutrophils # 2.51 10^3/uL (1.8-7.7); Neutrophils % 40.8 %; Nucleated Red Blood Cells % 0 %; Platelet Count 318 10^3/cmm (130-400); Red Blood Count 3.61 10^6/uL (4.1-5.3); Red Cell Distribution Width 13.8 % (12.1-15.1); White Blood Count 6.1 10^3/uL (4.0-10.0)
[2022-01-21 19:50] LABS: Alanine Aminotransferase 7 U/L (0-33); Albumin Level 4.1 g/dL (3.5-5.2); Alkaline Phosphatase 107 IU/L (35-105); Anion Gap 13.3 (5-19); Aspartate Amino Transferase 14 U/L (0-32); Blood Urea Nitrogen 20 mg/dL (8-23); C Reactive Protein 8.3 mg/L (0.0-4.9); Calcium 8.8 mg/dL (8.5-10.5); Carbon Dioxide 31 mmol/L (22-29); Chloride 98 mmol/L (98-107); Creatine Phosphokinase 113 U/L (26-192); Globulin 2.9 g/dL (1.3-4.6); Glucose 113 mg/dL (65-115); Osmolality Calculated 291 mOsm/kg (285-295); Potassium 3.3 mmol/L (3.5-5.1); Sodium 139 mmol/L (136-145); Total Bilirubin 0.3 mg/dL (0.15-1.2)
[2022-01-21] MEDS: sodium chloride 0.9% 500 ML IV (19:53)
--- NOTE | 2022-01-21 19:56 | W.ED.AMS ---
HPI - Altered Mental Status General: Chief Complaint: Altered Mental Status Stated Complaint: AMS Time Seen by Provider: 01/21/22 19:13 History of Present Illness: 86-year-old female residing in a penitentiary environment. She is brought in by ambulance, for concern of a redness with minimal swelling to the left side of her face, and possibly left upper extremity numbness and tingling. Numbness and tingling is resolved. She is not complaining of any specific weakness currently. Family now here with her, states that they believe she is essentially baseline. She woke up from a nap after laying down at 2 PM with the symptoms MD complaint: altered mental status Timing confirmed by: family member and caregiver Severity: moderate Associated symptoms: Deny auditory hallucinations Review of Systems General: Reports: ROS unobtainable due to medical condition and ROS unobtainable due to mental status Const: Denies: fever(s) Card: Denies: chest pain Resp: Denies: dyspnea GI: Denies: abdominal pain or vomiting Psych: Denies: auditory hallucinations PFSH ED PFSH: Medical History DEWAYNE (generalized anxiety disorder) HTN (hypertension) Osteoarthritis Surgical History H/O cataract extraction Bilateral - Dr Casas H/O neck surgery H/O shoulder surgery 2012 Dr Live in [place] History of colonoscopy 2011 - normal per patient History of hysterectomy Hx of tonsillectomy Family History Mother Dementia Father Cancer Lymphoma Brother Diabetes Social History Smoking and tobacco status: never smoked Physical Exam Const: GENERAL APPEARANCE: cooperative and frail appearing HENMT: COMMON NORMALS: normocephalic, atraumatic and Normal external nose present HEAD & SCALP: normocephalic and atraumatic FACE & SINUS: normal facial exam, face symmetric and erythema (Minimal left periorbital) NOSE: Normal external nose present MOUTH: moist mucous membranes abnormal Details: parched Eye: COMMON NORMALS: Equal, round and reactive pupils present and EOMs intact bilaterally PUPIL: Yes Equal, round and reactive pupils present Neck/C-Spine: GENERAL: Yes trachea midline Chest: COMMONS NORMALS: normal inspection of the chest CHEST: Yes Symmetrical chest wall rise Resp: COMMON NORMALS: normal respiratory effort, No use of accessory muscles and clear to auscultation bilaterally AUSCULTATION: clear to auscultation bilaterally Cardio: COMMON NORMALS: regular rate and regular rhythm RATE: regular rate RHYTHM: regular rhythm GI: COMMON NORMALS: Normal to inspection, nondistended, normoactive bowel sounds present, Soft to palpation and non-tender PALPATION: Yes Soft to palpation Extremity: COMMON NORMALS: no pedal edema Neuro: ALBERTINA COMA SCALE: document GCS findings Albertina coma scale eye opening: Spontaneous [place]ville coma scale verbal response: Confused [place] coma scale motor response: Obey commands Albertina coma scale total score: 14 Psych: COMMON NORMALS: cooperative Course Vital Signs: Vital signs: Vital Signs Temperature 98.2 F 01/21/22 19:11 Pulse Rate 70 01/21/22 21:28 Respiratory Rate 18 01/21/22 21:28 Blood Pressure 128/78 01/21/22 21:28 Pulse Oximetry 97 01/21/22 21:28 MDM - Altered Mental Status Medical Decision Making Family is here with the patient. They indicate that she is essentially at baseline. Her potassium was mildly low at 3.3. Her hemoglobin is 10.6, but has been much lower in the past. Head CT is negative. She has no signs of acute stroke on exam, she is moving her extremities equally, has no significant vision changes, language is at baseline, etc. her NIH scale is essentially 0. She has been given fluid here, as she does appear clinically dry. She has been given potassium. She will be allowed discharge. Lab Data : 01/21/22 19:08 01/21/22 19:08 Radiology Impressions Chest X-Ray 01/21/22 19:27 IMPRESSION: No acute findings. Head CT 01/21/22 19:27 IMPRESSION: No acute intracranial abnormality. Laboratory Results WBC 6.1 10^3/uL (4.0-10.0) 01/21/22 19:08 RBC 3.61 10^6/uL (4.1-5.3) L 01/21/22 19:08 Hgb 10.6 g/dL (11.5-15.3) L 01/21/22 19:08 Hct 32.9 % (37.0-47.0) L 01/21/22 19:08 MCV 91.1 fl (81-99) 01/21/22 19:08 MCH 29.4 pg (28.0-34.0) 01/21/22 19:08 MCHC 32.2 g/dL (30.0-36.0) 01/21/22 19:08 RDW 13.8 % (12.1-15.1) 01/21/22 19:08 Plt Count 318 10^3/cmm (130-400) 01/21/22 19:08 MPV 9.7 fL (7.4-10.4) 01/21/22 19:08 Neut % (Auto) 40.8 % 01/21/22 19:08 Lymph % (Auto) 47.9 % 01/21/22 19:08 Whitley % (Auto) 7.2 % 01/21/22 19:08 Eos % (Auto) 3.6 % 01/21/22 19:08 Baso % (Auto) 0.3 % 01/21/22 19:08 Neut # (Auto) 2.51 10^3/uL (1.8-7.7) 01/21/22 19:08 Lymph # (Auto) 2.9 10^3/uL (0.8-4.8) 01/21/22 19:08 Whitley # (Auto) 0.4 10^3/uL (0.2-0.9) 01/21/22 19:08 Eos # (Auto) 0.2 10^3/uL (0.0-0.8) 01/21/22 19:08 Baso # (Auto) 0.0 10^3/uL (0.0-0.1) 01/21/22 19:08 Nucleated RBC % (auto) 0 % 01/21/22 19:08 Nucleated RBCs # 0.0 /100WBC 01/21/22 19:08 Sodium 139 mmol/L (136-145) 01/21/22 19:08 Potassium 3.3 mmol/L (3.5-5.1) L 01/21/22 19:08 Chloride 98 mmol/L (98-107) 01/21/22 19:08 Carbon Dioxide 31 mmol/L (22-29) H 01/21/22 19:08 Anion Gap 13.3 (5-19) 01/21/22 19:08 BUN 20 mg/dL (8-23) 01/21/22 19:08 Creatinine 1.3 mg/dL (0.5-0.9) H 01/21/22 19:08 GFR Calculation Not Reportable 01/21/22 19:08 Glucose 113 mg/dL (65-115) 01/21/22 19:08 Calculated Osmolality 291 mOsm/kg (285-295) 01/21/22 19:08 Lactate 1.8 mmol/L (0.5-2.2) 01/21/22 19:50 Calcium 8.8 mg/dL (8.5-10.5) 01/21/22 19:08 Total Bilirubin 0.3 mg/dL (0.15-1.2) 01/21/22 19:08 AST 14 U/L (0-32) 01/21/22 19:08 ALT 7 U/L (0-33) 01/21/22 19:08 Alkaline Phosphatase 107 IU/L (35-105) H 01/21/22 19:08 Creatine Kinase 113 U/L (26-192) 01/21/22 19:08 C-Reactive Protein 8.3 mg/L (0.0-4.9) H 01/21/22 19:08 Total Protein 7.0 g/dL (6.6-8.7) 01/21/22 19:08 Albumin 4.1 g/dL (3.5-5.2) 01/21/22 19:08 Globulin 2.9 g/dL (1.3-4.6) 01/21/22 19:08 Discharge Plan Discharge Patient Disposition: Home Clinical Impression: Weakness Condition: Stable Prescriptions: No Action alfuzosin 10 mg tablet extended release 24 hr 10 mg PO BEDTIME 0RF latanoprost 0.005 % drops 1 drop ophthalmic (eye) BEDTIME 0RF acetaminophen [Tylenol Extra Strength] 500 mg tablet 500 mg PO DAILY PRN (Reason: Pain) 0RF timolol 0.5 % drops 1 drop ophthalmic (eye) BID 0RF Rx Instructions: WAIT 5 MINS BETWEEN DIFFERENT EYE DROPS pantoprazole 40 mg tablet,delayed release (DR/EC) 40 mg PO DAILY 0RF hydrochlorothiazide 25 mg tablet 25 mg PO DAILY Qty: 30 0RF (DME) wheelchair See Rx Instructions .Route .MEDSUPPLY Qty: 1 0RF Rx Instructions: As directed (DME) DEPENDS/BRIEFS See Rx Instructions .Route .MEDSUPPLY Qty: 180 3RF Rx Instructions: As directed olanzapine 5 mg tablet 5 mg PO TID Qty: 90 3RF pregabalin [Lyrica] 25 mg capsule 25 mg PO DAILY Qty: 30 2RF tramadol 50 mg tablet 50 mg PO Q6H PRN (Reason: pain) Qty: 30 3RF duloxetine 60 mg Capsule,Delayed Release(Dr/Ec) 60 mg PO DAILY 0RF acetaminophen 325 mg Tablet 650 mg PO Q6H PRN (Reason: Pain) 0RF loperamide 2 mg Tablet 4 mg PO DAILY PRN (Reason: Diarrhea) 0RF Rx Instructions: administer after each loose stool until symptoms controlled; do not exceed 8 mg per 24 hrs Milk of Magnesia 400 mg/5 mL Suspension 30 ml PO DAILY PRN (Reason: Constipation) 0RF bisacodyl 10 mg Suppository 10 mg [place] DAILY PRN (Reason: Constipation) 0RF Mylanta 200-200-20 mg/5 mL Suspension 30 ml PO Q4H PRN (Reason: Heartburn) 0RF Rx Instructions: administer between meals melatonin 5 mg Tablet 5 mg PO BEDTIME 0RF Biofreeze 0.2-3.5 % Gel 1 applic TOPICAL DAILY PRN (Reason: Pain) 0RF Rx Instructions: rub in gently and completely Discharge Orders: Discharge ED (Routine); Ordered 01/21/22 Ordered By: Kali Torres Referrals: Ben Suazo DO [Primary Care Provider] - 1-3 days Patient Instructions: Weakness (ED) Activity Restrictions/Additional Instructions: Return for worsening mental status, weakness, vision problems, language problems, fever, any other concerning symptoms. Coding Level of Care Code ED Medical Numerical Control Operator for Chg Fwd Exam Comprehensive
[2022-01-21 20:00] VITALS: BP 132/78; PULSE 77; RESP 18; O2SAT 98
[2022-01-21 20:19] LABS: Lactate (Lactic Acid level) 1.8 mmol/L (0.5-2.2)
[2022-01-21 20:49] VITALS: BP 122/73; PULSE 72; RESP 16; O2SAT 98
[2022-01-21] MEDS: potassium chloride ER 20 mEq Tablet PO (21:01)
[2022-01-21 21:28] VITALS: BP 128/78; PULSE 70; RESP 18; O2SAT 97
== END 2022-01-21 21:29 | disposition home or self-care (01) ==
PROVIDERS: Emergency Provider Emergency Medicine; PCP Family Medicine
DX: R53.1 Weakness (principal); I10 Essential (primary) hypertension; R41.82 Altered mental status, unspecified; R20.0 Anesthesia of skin
CPT/HCPCS: 70450; 71045; 80053; 82550; 83605; 85025; 86140; 96360; 99284; J7040

== ENCOUNTER 2022-02-01 13:36 | Outpatient (CLI) | payer MEDICARE, OTHER, SELFPAY ==
[2022-02-01 15:08] LABS: Specific Gravity, Urine 1.005 (1.005-1.030); Urine Appearance Clear (CLEAR); Urine Color Straw (Yellow); pH Urine 6.5 (5-7)
[2022-02-01 15:09] LABS: Bilirubin Urine Neg (Negative); Blood Urine 2+ (Negative); Glucose Urine UA Norm (Normal); Ketones Urine Negative (Negative); Leukocyte Esterase Urine Negative (Negative); Nitrate Urine Negative (Negative); Protein Urine Neg (Negative); Urobilinogen Urine Norm (Negative)
[2022-02-01 15:10] LABS: Bacteria Urine TRACE /hpf; RBC Urine 0-4 /hpf (0-2); Squamous Epithelial Cell Urine 0-4 /hpf (0-5)
[2022-02-01 15:12] LABS: Add Urine Culture? No
[2022-02-01 15:13] LABS: Add Urine Microscopic? YES
== END 2022-02-01 13:37 | disposition home or self-care (01) ==
LOC: LAB 13:38
PROVIDERS: PCP Family Medicine; Visit Provider Family Medicine
DX: N39.0 Urinary tract infection, site not specified (principal)
CPT/HCPCS: 81001; 87086

== ENCOUNTER 2022-02-23 18:56 | Emergency (ER) | payer MEDICARE, OTHER, SELFPAY ==
[2022-02-23 19:02] VITALS: BP 140/68; PULSE 83; RESP 18; TEMP 36.6; O2SAT 95; BMI 26.5
--- NOTE | 2022-02-23 19:11 | CTR_ITS ---
PROCEDURE INFORMATION: Exam: CT Cervical Spine Without Contrast Exam date and time: 02/23/2022 7:27 PM Age: 86 years old Clinical indication: Injury or trauma; Blunt trauma; Prior surgery; Surgery type: Dental; Patient HX: Unwitnessed fall at senior care. C/O occipital pain. History of dementia. ; Additional info: Fall with neck pain TECHNIQUE: Imaging protocol: Computed tomography of the cervical spine without contrast. Radiation optimization: All CT scans at this facility use at least one of these dose optimization techniques: automated exposure control; mA and/or kV adjustment per patient size (includes targeted exams where dose is matched to clinical indication); or iterative reconstruction. COMPARISON: CT cervical spin wo con* [id number] 06/23/2021 8:59 PM RADIATION DOSE METRICS: Total DLP (mGy-cm): 181.17 FINDINGS: Bones/joints: Moderate degenerative changes are present in the cervical spine. No area of significant canal stenosis. No acute fracture is visualized. Spinal alignment is normal. Lungs: Lung apices are normal. Soft tissues: Unremarkable. CT/CT cervical spin wo con* [id number] IMPRESSION: No cervical spine fracture.
--- NOTE | 2022-02-23 19:11 | CTR_ITS ---
PROCEDURE INFORMATION: Exam: CT Head Without Contrast Exam date and time: 02/23/2022 7:25 PM Age: 86 years old Clinical indication: Injury or trauma; Blunt trauma (contusions or hematomas); Patient HX: Unwitnessed fall at intermediate. C/O occipital pain. History of dementia. ; Additional info: Fall with head injury TECHNIQUE: Imaging protocol: Computed tomography of the head without contrast. Radiation optimization: All CT scans at this facility use at least one of these dose optimization techniques: automated exposure control; mA and/or kV adjustment per patient size (includes targeted exams where dose is matched to clinical indication); or iterative reconstruction. COMPARISON: CT head wo con* [id number] 01/21/2022 8:10 PM RADIATION DOSE METRICS: Total DLP (mGy-cm): 1081.48 FINDINGS: Brain: Mild atrophy and mild white matter chronic microvascular changes are noted. No hemorrhage or evidence of acute infarction. Cerebral ventricles: No ventriculomegaly. Paranasal sinuses: Visualized sinuses are unremarkable. No fluid levels. Mastoid air cells: Visualized mastoid air cells are well aerated. Bones/joints: Unremarkable. No acute fracture. Soft tissues: Mild soft tissue swelling is present in the midline occipital scalp. CT/CT head wo con* [id number] IMPRESSION: No acute intracranial abnormality.
--- NOTE | 2022-02-23 19:13 | W.ED.FALL ---
HPI - Fall General: Chief Complaint: Fall Stated Complaint: FALL HIT HEAD Time Seen by Provider: 02/23/22 19:04 Source: patient, EMS and RN notes reviewed Mode of arrival: EMS Limitations: no limitations History of Present Illness: This patient was transported by EMS from a local long-term care facility. Allegedly from EMS records as well as longterm statements that the patient rolled out and rolled over fell out of her bed and struck her head. There was no history of loss of consciousness from the staff or from the patient. She now states she has a headache. She denies any other complaints at this time. She does have a longstanding history of dementia. MD complaint: fall Fall from: out of bed Fall witnessed: yes, by living facility staff Place fall occurred: longterm/SNF Loss of consciousness: None Location of injury: head Associated symptoms-after fall: Reports headache(s); Denies chest pain Review of Systems Const: Denies: fever(s) or chills Eyes: Denies: change in vision Card: Denies: chest pain or syncope Resp: Denies: dyspnea, productive cough or non-productive cough GI: Denies: nausea, vomiting or diarrhea : Denies: difficulty voiding or dysuria Musc: Denies: extremity pain or extremity swelling Skin/Breast: Denies: rash Neuro: Reports: headache(s); Denies: numbness in extremities, weakness in extremities or frequent falls Abelino/Lymph: Denies: easy bruising or easy bleeding PFS ED PFSH: Medical History DEWAYNE (generalized anxiety disorder) HTN (hypertension) Osteoarthritis Surgical History H/O cataract extraction Bilateral - Dr Casas H/O neck surgery H/O shoulder surgery 2011 Dr Live in [place] History of colonoscopy 2011 - normal per patient History of hysterectomy Hx of tonsillectomy Family History Mother Dementia Father Cancer Lymphoma Brother Diabetes Social History Smoking and tobacco status: never smoked Physical Exam Narrative: EXAM NARRATIVE: Questions in a goal-directed fashion however she is only aware of herself she is not sure where she is or the time of the year with her current situation. Const: COMMON NORMALS: no acute distress, average body habitus and alert GENERAL APPEARANCE: cooperative, comfortable and well kempt ORIENTATION/CONSCIOUSNESS: Yes oriented to person HENMT: COMMON NORMALS: normocephalic HEAD & SCALP: normocephalic FACE & SINUS: normal facial exam, sinuses nontender and face symmetric OTHER: She has tenderness and area of contused tissue with some swelling in the mid occiput. There is no laceration or step-off palpated. Eye: COMMON NORMALS: Equal, round and reactive pupils present, EOMs intact bilaterally and conjunctivae normal CONJUNCTIVA: Yes conjunctivae normal PUPIL: Yes Equal, round and reactive pupils present Neck/C-Spine: CERVICAL SPINE: Yes Cervical spine tenderness and No step off deformity Chest: COMMONS NORMALS: normal inspection of the chest and normal palpation of entire chest wall Resp: COMMON NORMALS: normal respiratory effort, No retractions, No use of accessory muscles and clear to auscultation bilaterally AUSCULTATION: clear to auscultation bilaterally Cardio: COMMON NORMALS: regular rate, regular rhythm, S1 normal heart sound present, No murmurs present (Cardio) and Peripheral pulses 2+ throughout RATE: regular rate RHYTHM: regular rhythm HEART SOUNDS: S1 normal heart sound present PERIPHERAL PULSES: Peripheral pulses 2+ throughout GI: COMMON NORMALS: Soft to palpation and non-tender PALPATION: Yes Soft to palpation : COMMON NORMALS: Yes no CVA tenderness BLADDER/KIDNEY EXAM: Yes no CVA tenderness Back/Pelvis: COMMON NORMALS: no CVA tenderness, thoracic and lumbar spine normal to inspection, no thoracic nor lumbar tenderness and thoraco-lumbar ROM normal PELVIS: Yes no pain with anterior-posterior compression and Yes no pain with lateral compression Extremity: COMMON NORMALS: normal to inspection, full ROM, capillary refill normal, no joint enlargement, no clubbing, cyanosis or edema, no calf tenderness and no pedal edema Neuro: COMMON NORMALS: moves all extremities, no focal motor deficits and no sensory deficits noted SENSORIUM/ORIENTATION: Yes alert and Yes oriented to person SPEECH: speech normal Psych: COMMON NORMALS: speech normal APPEARANCE: Yes well kempt ATTITUDE: Yes calm SPEECH: Yes normal speech Skin: COMMON NORMALS: no rashes or lesions noted, no wounds and turgor normal GENERAL SKIN EXAM: no rashes or lesions noted and turgor normal Course Vital Signs: Vital signs: Vital Signs Temperature 97.8 F 02/23/22 19:02 Pulse Rate 83 02/23/22 19:02 Respiratory Rate 18 02/23/22 19:02 Blood Pressure 140/68 02/23/22 19:02 Pulse Oximetry 95 02/23/22 19:02 MDM - Fall Medical Decision Making Patient's was transported to our emergency department because of fall injury and concern about possible head injury. Her clinical exam is reassuring. She was alert, clearly demented but cooperative. Her clinical exam did not reveal any evidence of obvious injury other than minimal occipital tenderness and swelling. Imaging of head and cervical spine are reassuring. Discussed current findings with family who are now here and they were reassured. She is stable to be returned back to long-term care facility. I did discuss some options with the family regarding limiting potential fall risk to include lowering bed etc. We will explore those with a long-term care facility. Lab Data Radiology Impressions Cervical Spine CT 02/23/22 19:11 IMPRESSION: No cervical spine fracture. Head CT 02/23/22 19:11 IMPRESSION: No acute intracranial abnormality. Discharge Plan Discharge Patient Disposition: Home Clinical Impression: Fall from ground level, Contusion of occipital region of scalp Condition: Stable Prescriptions: No Action alfuzosin 10 mg tablet extended release 24 hr 10 mg PO BEDTIME 0RF latanoprost 0.005 % drops 1 drop ophthalmic (eye) BEDTIME 0RF acetaminophen [Tylenol Extra Strength] 500 mg tablet 500 mg PO DAILY PRN (Reason: Pain) 0RF timolol 0.5 % drops 1 drop ophthalmic (eye) BID 0RF Rx Instructions: WAIT 5 MINS BETWEEN DIFFERENT EYE DROPS pantoprazole 40 mg tablet,delayed release (DR/EC) 40 mg PO DAILY 0RF hydrochlorothiazide 25 mg tablet 25 mg PO DAILY Qty: 30 0RF (DME) wheelchair See Rx Instructions .Route .MEDSUPPLY Qty: 1 0RF Rx Instructions: As directed (DME) DEPENDS/BRIEFS See Rx Instructions .Route .MEDSUPPLY Qty: 180 3RF Rx Instructions: As directed olanzapine 5 mg tablet 5 mg PO TID Qty: 90 3RF pregabalin [Lyrica] 25 mg capsule 25 mg PO DAILY Qty: 30 2RF tramadol 50 mg tablet 50 mg PO Q6H PRN (Reason: pain) Qty: 30 3RF duloxetine 60 mg Capsule,Delayed Release(Dr/Ec) 60 mg PO DAILY 0RF acetaminophen 325 mg Tablet 650 mg PO Q6H PRN (Reason: Pain) 0RF loperamide 2 mg Tablet 4 mg PO DAILY PRN (Reason: Diarrhea) 0RF Rx Instructions: administer after each loose stool until symptoms controlled; do not exceed 8 mg per 24 hrs Milk of Magnesia 400 mg/5 mL Suspension 30 ml PO DAILY PRN (Reason: Constipation) 0RF bisacodyl 10 mg Suppository 10 mg [place] DAILY PRN (Reason: Constipation) 0RF Mylanta 200-200-20 mg/5 mL Suspension 30 ml PO Q4H PRN (Reason: Heartburn) 0RF Rx Instructions: administer between meals melatonin 5 mg Tablet 5 mg PO BEDTIME 0RF Biofreeze 0.2-3.5 % Gel 1 applic TOPICAL DAILY PRN (Reason: Pain) 0RF Rx Instructions: rub in gently and completely Discharge Orders: Discharge ED (Routine); Ordered 02/23/22 Ordered By: Charli Shaffer Referrals: Ben Suazo DO [Primary Care Provider] - Discharge Diet: Usual diet Discharge Activity: Resume usual activity Patient Instructions: Opioid Safety Activity Restrictions/Additional Instructions: Resume usual activity, usual medications. If you have any ongoing concerns or change in her condition return to this or the nearest emergency department for reevaluation or with her attending physician. Coding Level of Care Code ED Thermal Spray Operator for Gavi Fwchuckie Exam Comprehensive
[2022-02-23 21:21] VITALS: BP 123/79; PULSE 84; RESP 18; O2SAT 93
== END 2022-02-23 21:24 | disposition home or self-care (01) ==
PROVIDERS: Emergency Provider Emergency Medicine; PCP Family Medicine
DX: S00.03XA Contusion of scalp, initial encounter (principal); W06.XXXA Fall from bed, initial encounter; Y92.129 Unspecified place in nursing home as the place of occurrence of the external cause
CPT/HCPCS: 70450; 72125; 99283

== ENCOUNTER 2022-06-13 13:57 | Outpatient (CLI) | payer MEDICARE, OTHER, SELFPAY ==
[2022-06-13 14:17] LABS: Add Urine Microscopic? YES; Bilirubin Urine Neg (Negative); Blood Urine 2+ (Negative); Glucose Urine UA Norm (Normal); Ketones Urine Negative (Negative); Leukocyte Esterase Urine 2+ (Negative); Nitrate Urine Negative (Negative); Protein Urine Neg (Negative); RBC Urine 15-25 /hpf (0-2); Specific Gravity, Urine 1.005 (1.005-1.030); Squamous Epithelial Cell Urine RARE /hpf (0-5); Urine Appearance Cloudy (CLEAR); Urine Color Yellow (Yellow); Urobilinogen Urine Neg (Negative); WBC Urine >100 /hpf (0-5); pH Urine 6.5 (5-7)
[2022-06-13 14:18] LABS: Add Urine Culture? No; Bacteria Urine 1+ /hpf
== END 2022-06-13 13:58 | disposition home or self-care (01) ==
LOC: LAB 13:58
PROVIDERS: PCP Family Medicine; Visit Provider Family Medicine
DX: N39.0 Urinary tract infection, site not specified (principal)
CPT/HCPCS: 81001; 87086

== ENCOUNTER 2022-07-27 14:54 | Outpatient (CLI) | payer MEDICARE, OTHER, SELFPAY ==
[2022-07-27 15:22] LABS: Urine Appearance Hazy (CLEAR); Urine Color Yellow (Yellow)
[2022-07-27 15:23] LABS: Add Urine Culture? No; Add Urine Microscopic? YES; Bilirubin Urine Neg (Negative); Blood Urine Neg (Negative); Glucose Urine UA Norm (Normal); Ketones Urine Negative (Negative); Leukocyte Esterase Urine Negative (Negative); Nitrate Urine Negative (Negative); Protein Urine Neg (Negative); RBC Urine RARE /hpf (0-2); Specific Gravity, Urine 1.005 (1.005-1.030); Urobilinogen Urine Neg (Negative); pH Urine 7 (5-7)
== END 2022-07-27 14:55 | disposition home or self-care (01) ==
LOC: LAB 14:55
PROVIDERS: PCP Family Medicine; Visit Provider Family Medicine
DX: N39.0 Urinary tract infection, site not specified (principal)
CPT/HCPCS: 81001; 87086

== ENCOUNTER 2022-11-14 19:11 | Outpatient (CLI) | payer MEDICARE, OTHER, SELFPAY ==
[2022-11-14 19:41] LABS: Add Urine Microscopic? YES; Bilirubin Urine Neg (Negative); Blood Urine 2+ (Negative); Glucose Urine UA Norm (Normal); Ketones Urine Negative (Negative); Leukocyte Esterase Urine 2+ (Negative); Nitrate Urine Negative (Negative); Protein Urine Neg (Negative); Specific Gravity, Urine 1.005 (1.005-1.030); Urine Appearance Cloudy (CLEAR); Urine Color Light yellow (Yellow); Urobilinogen Urine Norm (Negative); pH Urine 6.5 (5-7)
[2022-11-14 19:42] LABS: Add Urine Culture? Yes; Amorphous Sediment Urine TRACE /hpf; Bacteria Urine TRACE /hpf; RBC Urine 0-4 /hpf (0-2); Squamous Epithelial Cell Urine 0-4 /hpf (0-5); WBC Urine >100 /hpf (0-5)
== END 2022-11-14 19:12 | disposition home or self-care (01) ==
LOC: LAB 19:13
PROVIDERS: PCP Family Medicine; Visit Provider Family Medicine
DX: N39.0 Urinary tract infection, site not specified (principal)
CPT/HCPCS: 81001; 87086

== ENCOUNTER 2022-12-17 18:31 | Outpatient (CLI) | payer MEDICARE, OTHER, SELFPAY ==
[2022-12-17 18:36] LABS: Add Urine Microscopic? NO; Charge for UA Resulting for Rev
[2022-12-17 19:05] LABS: Urine Appearance Clear (CLEAR); Urine Color Yellow (Yellow)
[2022-12-17 19:06] LABS: Bilirubin Urine Neg (Negative); Blood Urine Neg (Negative); Glucose Urine UA Norm (Normal); Ketones Urine Negative (Negative); Leukocyte Esterase Urine Negative (Negative); Nitrate Urine Negative (Negative); Protein Urine Neg (Negative); Specific Gravity, Urine 1.005 (1.005-1.030); Urobilinogen Urine Norm (Negative); pH Urine 8 (5-7)
== END 2022-12-17 18:32 | disposition home or self-care (01) ==
LOC: LAB 18:32
PROVIDERS: PCP Family Medicine; Visit Provider Family Medicine
DX: N39.0 Urinary tract infection, site not specified (principal)
CPT/HCPCS: 81003; 87086

== ENCOUNTER 2023-02-08 14:02 | Outpatient (CLI) | payer MEDICARE, OTHER, SELFPAY ==
[2023-02-08 15:04] LABS: Specific Gravity, Urine 1.005 (1.005-1.030); Urine Appearance Cloudy (CLEAR); Urine Color Yellow (Yellow); pH Urine 7 (5-7)
[2023-02-08 15:05] LABS: Add Urine Microscopic? YES; Bilirubin Urine Neg (Negative); Blood Urine 2+ (Negative); Glucose Urine UA Norm (Normal); Ketones Urine Negative (Negative); Leukocyte Esterase Urine 1+ (Negative); Nitrate Urine Negative (Negative); Protein Urine Neg (Negative); Urobilinogen Urine 1 mg/dL (Negative)
[2023-02-08 15:19] LABS: Amorphous Sediment Urine 3+ /hpf; Bacteria Urine 2+ /hpf; Mucus Urine 2+ /hpf; RBC Urine 0-4 /hpf (0-2); Squamous Epithelial Cell Urine 0-4 /hpf (0-5); WBC Urine 0-4 /hpf (0-5)
[2023-02-08 15:20] LABS: Add Urine Culture? Yes
== END 2023-02-08 14:03 | disposition home or self-care (01) ==
PROVIDERS: PCP Family Medicine; Visit Provider Family Medicine
DX: N39.0 Urinary tract infection, site not specified (principal)
CPT/HCPCS: 81001; 87086

== ENCOUNTER 2023-03-14 17:31 | Emergency (ER) | payer MEDICARE, OTHER, SELFPAY ==
[2023-03-14 17:40] VITALS: BP 129/65; PULSE 74; RESP 17; TEMP 36.8; O2SAT 91; BMI 25.7
--- NOTE | 2023-03-14 18:00 | ED_ITS ---
HPI - Altered Mental Status General: Chief Complaint: Altered Mental Status Stated Complaint: AMS Time Seen by Provider: 03/14/23 17:54 History of Present Illness: Presents to the ER by EMS from the memory unit at [facility]. Per patient's daughter patient has dementia and lives in the Alzheimer's unit. They noticed her having a decrease in her mental status couple days ago. They performed a chest x-ray which was negative. Their doctor put her on azithromycin and cefdinir yesterday. But she was worsened today. So they brought her here for further evaluation and treatment. Patient cannot provide any history. Review of Systems General: Reports: ROS unobtainable due to mental status PFSH ED PFSH: Medical History DEWAYNE (generalized anxiety disorder) HTN (hypertension) Osteoarthritis Surgical History H/O cataract extraction Bilateral - Dr Casas H/O neck surgery H/O shoulder surgery 2011 Dr Live in [place] History of colonoscopy 2010 - normal per patient History of hysterectomy Hx of tonsillectomy Family History Mother Dementia Father Cancer Lymphoma Brother Diabetes Social History Smoking and tobacco status: never smoked Physical Exam Const: COMMON NORMALS: no acute distress, average body habitus, healthy appearing, alert and well nourished; limitations (Mental status) HENMT: COMMON NORMALS: normocephalic, atraumatic, hearing grossly normal bilaterally, external ears normal and Normal external nose present; oral mucous membranes not moist (Dry mucous membranes) HEAD & SCALP: normocephalic and atraumatic NOSE: Normal external nose present EXTERNAL EAR: Yes external ears normal Neck/C-Spine: COMMON NORMALS: no JVD Chest: COMMONS NORMALS: normal inspection of the chest and normal palpation of entire chest wall Resp: COMMON NORMALS: normal respiratory effort, No retractions and No use of accessory muscles; negative for clear to auscultation bilaterally (Occasional wheeze bilaterally) AUSCULTATION: not clear to auscultation bilaterally (Occasional wheeze bilaterally) Cardio: COMMON NORMALS: no JVD, regular rate, regular rhythm, S1 normal heart sound present, S2 normal heart sound present, No gallops present (Cardio), No clicks present (Cardio) and No murmurs present (Cardio) RATE: regular rate RHYTHM: regular rhythm HEART SOUNDS: S1 normal heart sound present and S2 normal heart sound present GI: COMMON NORMALS: Normal to inspection, nondistended, normoactive bowel sounds present, Soft to palpation, non-tender, No hepatosplenomegaly present and no masses PALPATION: Yes Soft to palpation and Yes No hepatosplenomegaly present : COMMON NORMALS: Yes no CVA tenderness BLADDER/KIDNEY EXAM: Yes no CVA tenderness Back/Pelvis: COMMON NORMALS: no CVA tenderness Extremity: NARRATIVE EXTREMITY EXAM: Negative bilateral lower extremity edema Neuro: SENSORIUM/ORIENTATION: Yes alert Course Vital Signs: Vital signs: Vital Signs Temperature 98.2 F 03/14/23 17:40 Pulse Rate 82 03/14/23 21:00 Respiratory Rate 20 H 03/14/23 21:00 Blood Pressure 133/67 03/14/23 21:00 Pulse Oximetry 90 03/14/23 21:00 Oxygen Delivery Me thod Room Air 03/14/23 21:00 Oxygen Flow Rate 2 03/14/23 20:00 MDM - Altered Mental Status Medical Decision Making Presents today with altered mental status. Patient cannot provide us with any history she was nonverbal and would not respond to verbal communication. During her work-up her family came and she became a more verbal noting left lower quadrant abdominal pain. Patient stated to her family that she had this in the past that was a spastic colon type cysts pain and she took some antispasm medicine for it. Patient was given Bentyl here while we are waiting for her lab work to come back which was essentially benign as well as her of the abdomen pelvis CT scan which was benign. Upon getting these back the results was discussed with the family and patient is now alert oriented and verbal. [facility] a [facility] for Bentyl to take as needed. Differential Diagnosis Likely altered mental status and dementia; Unlikely alcoholic intoxication, delirium, hypoglycemia, hyponatremia, subarachnoid hemorrhage or sepsis Medical Records I reviewed the patient's medical records. Lab Data I reviewed the patient's lab results. 03/14/23 17:15 03/14/23 17:15 Radiology Impressions Abdomen/Pelvis CT 03/14/23 20:25 IMPRESSION: 1. No acute finding visualized. 2. Cholelithiasis and other chronic findings above. Laboratory Results WBC 3.3 10^3/uL (4.0-10.0) L 03/14/23 17:15 RBC 3.75 10^6/uL (4.1-5.3) L 03/14/23 17:15 Hgb 11.0 g/dL (11.5-15.3) L 03/14/23 17:15 Hct 34.6 % (37.0-47.0) L 03/14/23 17:15 MCV 92.3 fl (81-99) 03/14/23 17:15 MCH 29.3 pg (28.0-34.0) 03/14/23 17:15 MCHC 31.8 g/dL (30.0-36.0) 03/14/23 17:15 RDW 14.6 % (12.1-15.1) 03/14/23 17:15 Plt Count 184 10^3/cmm (130-400) 03/14/23 17:15 MPV 9.7 fL (7.4-10.4) 03/14/23 17:15 Neut % (Auto) 57.0 % 03/14/23 17:15 Lymph % (Auto) 31.8 % 03/14/23 17:15 [place] % (Auto) 9.4 % 03/14/23 17:15 Eos % (Auto) 1.5 % 03/14/23 17:15 Baso % (Auto) 0.0 % 03/14/23 17:15 Neut # (Auto) 1.88 10^3/uL (1.8-7.7) 03/14/23 17:15 Lymph # (Auto) 1.1 10^3/uL (0.8-4.8) 03/14/23 17:15 [place] # (Auto) 0.3 10^3/uL (0.2-0.9) 03/14/23 17:15 Eos # (Auto) 0.1 10^3/uL (0.0-0.8) 03/14/23 17:15 Baso # (Auto) 0.0 10^3/uL (0.0-0.1) 03/14/23 17:15 Nucleated RBC % (auto) 0 % 03/14/23 17:15 Nucleated RBCs # 0.0 /100WBC 03/14/23 17:15 Sodium 138 mmol/L (136-145) 03/14/23 17:15 Potassium 3.6 mmol/L (3.5-5.1) 03/14/23 17:15 Chloride 97 mmol/L (98-107) L 03/14/23 17:15 Carbon Dioxide 32 mmol/L (22-29) H 03/14/23 17:15 Anion Gap 12.6 (5-19) 03/14/23 17:15 BUN 22 mg/dL (8-23) 03/14/23 17:15 Creatinine 1.2 mg/dL (0.5-0.9) H 03/14/23 17:15 GFR Calculation Not Reportable 03/14/23 17:15 Glucose 96 mg/dL (65-115) 03/14/23 17:15 Calculated Osmolality 289 mOsm/kg (285-295) 03/14/23 17:15 Calcium 8.9 mg/dL (8.5-10.5) 03/14/23 17:15 Magnesium 2.1 mg/dL (1.7-2.3) 03/14/23 17:15 Total Bilirubin 0.6 mg/dL (0.15-1.2) 03/14/23 17:15 AST 27 U/L (0-32) 03/14/23 17:15 ALT 9 U/L (0-33) 03/14/23 17:15 Alkaline Phosphatase 90 U/L (35-105) 03/14/23 17:15 Total Protein 7.3 g/dL (6.6-8.7) 03/14/23 17:15 Albumin 4.2 g/dL (3.5-5.2) 03/14/23 17:15 Globulin 3.1 g/dL (1.3-4.6) 03/14/23 17:15 Urine Color Yellow (Yellow) 03/14/23 19:25 Urine Appearance Clear (CLEAR) 03/14/23 19:25 Urine pH 6 (5-7) 03/14/23 19:25 Ur Specific [place] 1.015 (1.005-1.030) 03/14/23 19:25 Urine Protein Neg (Negative) 03/14/23 19:25 Urine Glucose (UA) Norm (Normal) 03/14/23 19:25 Urine Ketones Negative (Negative) 03/14/23 19:25 Urine Blood Neg (Negative) 03/14/23 19:25 Urine Nitrate Negative (Negative) 03/14/23 19:25 Urine Bilirubin Neg (Negative) 03/14/23 19:25 Urine Urobilinogen Norm mg/dL (Negative) 03/14/23 19:25 Ur Leukocyte Esterase Negative (Negative) 03/14/23 19:25 Discharge Plan Discharge Patient Disposition: Home Clinical Impression: Spastic intestine Abdominal pain Qualifiers: Abdominal location: left lower quadrant Qualified Code(s): R10.32 - Left lower quadrant pain Condition: Stable Prescriptions: New dicyclomine 20 mg tablet 20 mg PO TID PRN (Reason: Abdominal pain/colon spasm) Qty: 30 0RF No Action alfuzosin 10 mg tablet extended release 24 hr 10 mg PO BEDTIME latanoprost 0.005 % drops 1 drop ophthalmic (eye) BEDTIME acetaminophen [Tylenol Extra Strength] 500 mg tablet 500 mg PO DAILY PRN (Reason: Pain) timolol 0.5 % drops 1 drop ophthalmic (eye) BID Rx Instructions: WAIT 5 MINS BETWEEN DIFFERENT EYE DROPS pantoprazole 40 mg tablet,delayed release (DR/EC) 40 mg PO DAILY hydrochlorothiazide 25 mg tablet 25 mg PO DAILY Qty: 30 0RF (DME) wheelchair See Rx Instructions .Route .MEDSUPPLY Qty: 1 0RF Rx Instructions: As directed (DME) DEPENDS/BRIEFS See Rx Instructions .Route .MEDSUPPLY Qty: 180 3RF Rx Instructions: As directed olanzapine 5 mg tablet 5 mg PO BID Qty: 60 3RF ciprofloxacin HCl 500 mg tablet 500 mg PO Q12H Qty: 20 0RF pregabalin [Lyrica] 25 mg capsule 25 mg PO BID Qty: 60 5RF lorazepam 0.5 mg tablet 0.25 mg PO TID Qty: 90 5RF hydrocodone-acetaminophen 5-325 mg tablet 1 tab PO BID 30 Days Qty: 60 0RF cefdinir 300 mg capsule 300 mg PO BID 7 Days Qty: 14 0RF azithromycin [Zithromax Z-Jr] 250 mg tablet See Rx Instructions PO .COMPLEX Qty: 6 0RF Rx Instructions: take 500 mg today (day 1), then 250 mg for 4 days (days 2-5) PO duloxetine 60 mg Capsule,Delayed Release(Dr/Ec) 60 mg PO DAILY acetaminophen 325 mg Tablet 650 mg PO Q6H PRN (Reason: Pain) loperamide 2 mg Tablet 4 mg PO DAILY PRN (Reason: Diarrhea) Rx Instructions: administer after each loose stool until symptoms controlled; do not exceed 8 mg per 24 hrs Milk of Magnesia 400 mg/5 mL Suspension 30 ml PO DAILY PRN (Reason: Constipation) bisacodyl 10 mg Suppository 10 mg MI DAILY PRN (Reason: Constipation) Mylanta 200-200-20 mg/5 mL Suspension 30 ml PO Q4H PRN (Reason: Heartburn) Rx Instructions: administer between meals melatonin 5 mg Tablet 5 mg PO BEDTIME Biofreeze 0.2-3.5 % Gel 1 applic TOPICAL DAILY PRN (Reason: Pain) Rx Instructions: rub in gently and completely Discharge Orders: Discharge ED (Routine); Ordered 03/14/23 Ordered By: Sean Vazquez Referrals: Ben Suazo DO [Primary Care Provider] - 1 week Patient Instructions: Abdominal Pain (ED) Activity Restrictions/Additional Instructions: Take all medicine as directed. Please follow-up with your PCP in the next 7 days or as needed. Please return to the ER if symptoms worsen or uncontrollable. Coding Level of Care Code ED Consultative Sales Associate for Gavi Alan
[2023-03-14] MEDS: sodium chloride 0.9% 1,000 ML 999 ML IV (18:10)
[2023-03-14 18:43] LABS: Eosinophils # 0.1 10^3/uL (0.0-0.8); Eosinophils % 1.5 %; Hematocrit 34.6 % (37.0-47.0); Lymphocytes # 1.1 10^3/uL (0.8-4.8); Lymphocytes % 31.8 %; Mean Corpuscular HGB Conc 31.8 g/dL (30.0-36.0); Mean Corpuscular Hemoglobin 29.3 pg (28.0-34.0); Mean Corpuscular Volume 92.3 fl (81-99); Mean Platelet Volume 9.7 fL (7.4-10.4); Monocytes # 0.3 10^3/uL (0.2-0.9); Monocytes % 9.4 %; Neutrophils # 1.88 10^3/uL (1.8-7.7); Nucleated Red Blood Cells % 0 %; Platelet Count 184 10^3/cmm (130-400); Red Blood Count 3.75 10^6/uL (4.1-5.3); Red Cell Distribution Width 14.6 % (12.1-15.1); White Blood Count 3.3 10^3/uL (4.0-10.0)
[2023-03-14 18:49] VITALS: BP 118/80; PULSE 72; RESP 16; O2SAT 98
[2023-03-14 19:16] LABS: Alanine Aminotransferase 9 U/L (0-33); Albumin Level 4.2 g/dL (3.5-5.2); Alkaline Phosphatase 90 U/L (35-105); Anion Gap 12.6 (5-19); Aspartate Amino Transferase 27 U/L (0-32); Blood Urea Nitrogen 22 mg/dL (8-23); Calcium 8.9 mg/dL (8.5-10.5); Carbon Dioxide 32 mmol/L (22-29); Chloride 97 mmol/L (98-107); Globulin 3.1 g/dL (1.3-4.6); Glucose 96 mg/dL (65-115); Magnesium 2.1 mg/dL (1.7-2.3); Osmolality Calculated 289 mOsm/kg (285-295); Potassium 3.6 mmol/L (3.5-5.1); Sodium 138 mmol/L (136-145); Total Bilirubin 0.6 mg/dL (0.15-1.2); Total Protein 7.3 g/dL (6.6-8.7)
--- NOTE | 2023-03-14 19:28 | PC.NURSE ---
hua Christianson at [facility]- states that the patient has had increased agitation. Yells out, oh dear god . Wet cough. Noticed yesterday that she was wheezing. Normal cxr there but pcp started her on Abx. Decreased apetite/ fluid intake. This pm she would not even wake up. Not usually on oxygen.
[2023-03-14 19:39] LABS: Add Urine Microscopic? NO; Charge for UA Resulting for Rev
[2023-03-14 19:47] LABS: Bilirubin Urine Neg (Negative); Blood Urine Neg (Negative); Glucose Urine UA Norm (Normal); Ketones Urine Negative (Negative); Leukocyte Esterase Urine Negative (Negative); Nitrate Urine Negative (Negative); Protein Urine Neg (Negative); Specific Gravity, Urine 1.015 (1.005-1.030); Urine Appearance Clear (CLEAR); Urine Color Yellow (Yellow); Urobilinogen Urine Norm (Negative); pH Urine 6 (5-7)
[2023-03-14 20:00] VITALS: BP 145/77; PULSE 110; RESP 18
[2023-03-14] MEDS: ketorolac 30 mg/mL INJ 15 MG IVP (20:09)
--- NOTE | 2023-03-14 20:25 | CTR_ITS ---
PROCEDURE INFORMATION: Exam: CT Abdomen And Pelvis With Contrast Exam date and time: 03/14/2023 8:53 PM Age: 87 years old Clinical indication: Abdominal pain; Localized; Left lower quadrant (llq); Additional info: Llq abd pain, TECHNIQUE: Imaging protocol: Computed tomography of the abdomen and pelvis with contrast. Radiation optimization: All CT scans at this facility use at least one of these dose optimization techniques: automated exposure control; mA and/or kV adjustment per patient size (includes targeted exams where dose is matched to clinical indication); or iterative reconstruction. Contrast material: OMNI 350; Contrast volume: 70 ml; Contrast route: INTRAVENOUS (IV); REPORTING DATA: Count of CT and Cardiac NM exams in prior 12 months: This patient has received 0 known CTs and 0 known cardiac nuclear medicine studies in the 12 months prior to the current study. COMPARISON: CT abdomen pelvis w con* [id number] 12/23/2018 11:57 AM RADIATION DOSE METRICS: Total DLP (mGy-cm): 702.25 FINDINGS: Lungs: Mild areas of bilateral mid to lower lung atelectasis or scarring. Diaphragm: Tiny hiatal hernia. Liver: Left hepatic bilobed cyst measures 3.2 cm. And other minute left hepatic cyst measures about 2 cm. Gallbladder and bile ducts: Large gallstone measures about 2.5 cm. Pancreas: Unremarkable with no suspicious mass. No ductal dilation. Spleen: The spleen is not enlarged. No suspicious enhancing mass is noted. Adrenal glands: Normal. No mass. Kidneys and ureters: No solid renal mass or hydronephrosis. Stomach and bowel: The colon is rather fecal filled. No small bowel obstruction, abscess or free air. Appendix: No evidence of appendicitis. Intraperitoneal space: Unremarkable. No free air. No suspicious fluid collection. Vasculature: Advanced diffuse vascular calcification noted. Small pelvic phleboliths. No AAA. Lymph nodes: No enlarged lymph nodes. Urinary bladder: Unremarkable as visualized. Reproductive: Absent uterus. Bones/joints: Cfcl-um-pupjdszw spine DJD. Soft tissues: Small fat in right inguinal ring. Small fat umbilical hernia. Diastasis recti. Other findings: The exam is motion limited throughout. CT/CT abdomen pelvis w con* [id number] IMPRESSION: 1. No acute finding visualized. 2. Cholelithiasis and other chronic findings above.
[2023-03-14 20:30] VITALS: BP 154/67; PULSE 77; RESP 20; O2SAT 91
[2023-03-14] MEDS: iohexol 350 mg/mL 500 mL Btl (per mL) IV (20:54)
[2023-03-14 21:00] VITALS: BP 133/67; PULSE 82; RESP 20; O2SAT 90
[2023-03-14] MEDS: dicyclomine 20 mg Tablet PO (21:35)
--- NOTE | 2023-03-14 21:48 | PC.NURSE ---
@ 2029 patient removed from oxygen. Tolerating well.
[2023-03-14 22:25] VITALS: BP 130/80; PULSE 78; RESP 18; O2SAT 91
== END 2023-03-14 22:38 | disposition home or self-care (01) ==
PROVIDERS: Emergency Provider Emergency Medicine; PCP Family Medicine
DX: K58.9 Irritable bowel syndrome, unspecified (principal); R10.32 Left lower quadrant pain; I10 Essential (primary) hypertension
CPT/HCPCS: 74177; 80053; 81003; 83735; 85025; 96361; 96374; 99285; J1885; J7030; Q9967

== ENCOUNTER 2023-03-16 05:43 | Inpatient (IN) | payer MEDICARE, OTHER, SELFPAY ==
[2023-03-16] VITALS (19 sets, daily range): BP systolic 95–154; BP diastolic 58–82; PULSE 66–108; RESP 15–27; TEMP 36.4–38.4; O2SAT 74–98; BMI 26.6
--- NOTE | 2023-03-16 05:49 | XRR_ITS ---
PROCEDURE INFORMATION: Exam: XR Chest Exam date and time: 03/16/2023 6:38 AM Age: 87 years old Clinical indication: Cough TECHNIQUE: Imaging protocol: Radiologic exam of the chest. Views: 1 view. COMPARISON: CR XR chest 1V portable [id number] 01/21/2022 8:00 PM FINDINGS: Lungs: See Pleural spaces finding. Pleural spaces: There is a hazy airspace opacity in the left lower lobe in association with blunting of the costophrenic angle and associated loss of volume. Heart/Mediastinum: Stable cardiomediastinal silhouette. Bones/joints: Unremarkable. XR/XR chest 1V portable [id number] IMPRESSION: Imaging findings concerning for left lower lobe pneumonia with small parapneumonic effusion. Clinical correlation is recommended.
--- NOTE | 2023-03-16 05:55 | ECG_ITS ---
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 Measurements Intervals [place] Rate: 105 P: 12 MO: 150 QRS: -59 QRSD: 98 T: 31 QT: 282 QTc: 373 Interpretive Statements SINUS TACHYCARDIA LEFT AXIS DEVIATION [QRS AXIS < -30] PATTERN CONSISTENT WITH PULMONARY DISEASE NONSPECIFIC T-WAVE ABNORMALITY Compared to ECG 10/30/2019 17:53:07 Left-axis deviation now present T-wave abnormality now present Sinus rhythm no longer present Electronically Signed On 03-16-2023 13:59:44 CDT by Fabián Grover M.D. [email or web address]
[2023-03-16 06:04] LABS: Basophils % 0.2 %; Eosinophils # 0.1 10^3/uL (0.0-0.8); Eosinophils % 2.9 %; Hematocrit 32.2 % (37.0-47.0); Hemoglobin 10.3 g/dL (11.5-15.3); Lymphocytes # 1.1 10^3/uL (0.8-4.8); Lymphocytes % 26.7 %; Mean Corpuscular Hemoglobin 28.9 pg (28.0-34.0); Mean Corpuscular Volume 90.4 fl (81-99); Mean Platelet Volume 9.7 fL (7.4-10.4); Monocytes # 0.4 10^3/uL (0.2-0.9); Monocytes % 8.8 %; Neutrophils # 2.55 10^3/uL (1.8-7.7); Neutrophils % 60.9 %; Nucleated Red Blood Cells % 0 %; Platelet Count 171 10^3/cmm (130-400); Red Blood Count 3.56 10^6/uL (4.1-5.3); Red Cell Distribution Width 14.2 % (12.1-15.1); White Blood Count 4.2 10^3/uL (4.0-10.0)
[2023-03-16 06:14] LABS: Alanine Aminotransferase 13 U/L (0-33); Albumin Level 4.1 g/dL (3.5-5.2); Alkaline Phosphatase 92 U/L (35-105); Aspartate Amino Transferase 27 U/L (0-32); Blood Urea Nitrogen 27 mg/dL (8-23); Calcium 8.6 mg/dL (8.5-10.5); Carbon Dioxide 30 mmol/L (22-29); Chloride 95 mmol/L (98-107); Globulin 2.9 g/dL (1.3-4.6); Glucose 139 mg/dL (65-115); Osmolality Calculated 293 mOsm/kg (285-295); Sodium 138 mmol/L (136-145); Total Bilirubin 0.4 mg/dL (0.15-1.2)
[2023-03-16 06:16] LABS: Add Urine Microscopic? NO; Charge for UA Resulting for Rev
[2023-03-16 06:19] LABS: Glucose Urine UA Norm (Normal); Ketones Urine Negative (Negative); Protein Urine Neg (Negative); Urine Appearance Clear (CLEAR); Urine Color Yellow (Yellow); pH Urine 5 (5-7)
[2023-03-16 06:20] LABS: Bilirubin Urine Neg (Negative); Blood Urine Neg (Negative); Leukocyte Esterase Urine Negative (Negative); Nitrate Urine Negative (Negative); Urobilinogen Urine Norm (Negative)
--- NOTE | 2023-03-16 06:36 | PC.NURSE ---
RN into room to speak with daughter who is POA. Daughter states that pt was recently seen for pneumonia but findings were inconclusive. Pt was sent home with Z-pack and another unknown antibiotic (daughter states it starts with a c and was 300 mg) this week and has been taking them. NH has reported to her that she has had intermittent fever for a few days. Pt is normally able to hold conversation and knows where she is at. Pt currently knows her name, believes she is in [place], and unsure of date/birthday/age. Pt is not able to hold consistent conversation at this time.
[2023-03-16 06:48] LABS: Lactic Sepsis W/Reflex 1.7 mmol/L (0.5-2.2)
--- NOTE | 2023-03-16 06:50 | W.ED.SOB ---
HPI - SOB/Dyspnea General: Chief Complaint: Shortness of Breath/Dyspnea Stated Complaint: Cough Time Seen by Provider: 03/16/23 05:53 Source: patient Mode of arrival: ambulatory History of Present Illness: HPI Narrative: 79-year-old female presents to the emergency room with complaint of shortness of breath EMS reported they were told she had recently been hospitalized. She has a history of Alzheimer's dementia, she is not able to give any history at this time. She was seen 2 days ago in the emergency room here for abdominal pain. She was started on cefdinir and Zithromax at the [place] [facility]. MD elicited complaint: shortness of breath and cough Review of Systems General: Reports: ROS unobtainable due to mental status PFSH ED PFSH: Medical History Dementia with behavioral disturbance DEWAYNE (generalized anxiety disorder) GERD (gastroesophageal reflux disease) HTN (hypertension) Osteoarthritis Surgical History H/O cataract extraction Bilateral - Dr Casas H/O neck surgery H/O shoulder surgery 2012 Dr Live in [place] History of colonoscopy 2011 - normal per patient History of hysterectomy Hx of tonsillectomy Family History Mother Dementia Father Cancer Lymphoma Brother Diabetes Social History Smoking and tobacco status: never smoked Alcohol intake: never Physical Exam Const: COMMON NORMALS: no acute distress GENERAL APPEARANCE: cooperative and comfortable HENMT: COMMON NORMALS: normocephalic, atraumatic and hearing grossly normal bilaterally HEAD & SCALP: normocephalic and atraumatic Resp: COMMON NORMALS: normal respiratory effort, No retractions, No use of accessory muscles and clear to auscultation bilaterally AUSCULTATION: clear to auscultation bilaterally Cardio: COMMON NORMALS: regular rate, regular rhythm and No murmurs present (Cardio) RATE: regular rate RHYTHM: regular rhythm GI: COMMON NORMALS: Soft to palpation and No hepatosplenomegaly present AUSCULTATION: Yes normoactive bowel sounds PALPATION: Yes Soft to palpation, No Tenderness to palpation present (GI), No Guarding due to palpation present (GI) and Yes No hepatosplenomegaly present Extremity: COMMON NORMALS: normal to inspection, capillary refill normal, no clubbing, cyanosis or edema, no calf tenderness and no pedal edema Skin: COMMON NORMALS: no rashes or lesions noted GENERAL SKIN EXAM: no rashes or lesions noted Procedures Lumbar Puncture Time Out Performed: Yes Patient Position: right lateral decubitus Skin Prep: Povidone-Iodine 1% Local Anesthetic: lidocaine 1% Amount of anesthesia used (mL): 3 Spinal Needle Gauge: 22G Interspace Used: L3-L4 Complications: unable to obtain CSF Additional Comments: Patient has significant lumbar lordosis difficult due to flex through the lumbar spine were able to get into the intervertebral space but not able to obtain a sample of CSF. Discussed with Dr. Yarbrough will refer to radiology for fluoroscopy guided lumbar tap also discussed Dr. Molina. Course Vital Signs: Vital signs: Vital Signs Temperature 97.6 F 03/16/23 14:54 Pulse Rate 73 03/16/23 14:54 Respiratory Rate 16 03/16/23 14:54 Blood Pressure 95/59 03/16/23 14:54 Pulse Oximetry 90 03/16/23 14:54 Oxygen Delivery Me thod Nasal Cannula 03/16/23 14:54 Oxygen Flow Rate 2 03/16/23 14:45 MDM - SOB/Dyspnea Medical Decision Making Labs and imaging reviewed no distinct source of fever at this point respiratory panel negative lumbar tap by radiology pending she has been given Levaquin initially. Vital signs initially have been stable. Lactate is 1.7. We will admit with fever of unknown origin broad-spectrum antibiotics until cultures resulted radiology to the attempt fluoroscopic guided lumbar tap discussed Dr. Lazo orders written Medical Records I reviewed the patient's medical records. Lab Data I reviewed the patient's lab results. 03/16/23 05:30 03/16/23 05:30 Labs/Radiology: Radiology Impressions Chest X-Ray 03/16/23 05:49 IMPRESSION: Imaging findings concerning for left lower lobe pneumonia with small parapneumonic effusion. Clinical correlation is recommended. Abdomen/Pelvis CT 03/16/23 08:44 IMPRESSION: 1. Stable cholelithiasis. 2. Distended stomach with air-fluid level is new from March 14, 2023. No evidence of high-grade small or large bowel obstruction. 3. No hydronephrosis in either kidney. 4. Trace LEFT pleural fluid with slight atelectasis LEFT lower lobe. 5. No other new findings Head CT 03/16/23 12:12 IMPRESSION: 1. No evidence of intracranial hemorrhage or mass effect. 2. Mild small vessel changes with moderate parenchymal volume loss. 3. No acute intracranial findings. Laboratory Results WBC 4.2 10^3/uL (4.0-10.0) 03/16/23 05:30 RBC 3.56 10^6/uL (4.1-5.3) L 03/16/23 05:30 Hgb 10.3 g/dL (11.5-15.3) L 03/16/23 05:30 Hct 32.2 % (37.0-47.0) L 03/16/23 05:30 MCV 90.4 fl (81-99) 03/16/23 05:30 MCH 28.9 pg (28.0-34.0) 03/16/23 05:30 MCHC 32.0 g/dL (30.0-36.0) 03/16/23 05:30 RDW 14.2 % (12.1-15.1) 03/16/23 05:30 Plt Count 171 10^3/cmm (130-400) 03/16/23 05:30 MPV 9.7 fL (7.4-10.4) 03/16/23 05:30 Neut % (Auto) 60.9 % 03/16/23 05:30 Lymph % (Auto) 26.7 % 03/16/23 05:30 [place] % (Auto) 8.8 % 03/16/23 05:30 Eos % (Auto) 2.9 % 03/16/23 05:30 Baso % (Auto) 0.2 % 03/16/23 05:30 Neut # (Auto) 2.55 10^3/uL (1.8-7.7) 03/16/23 05:30 Lymph # (Auto) 1.1 10^3/uL (0.8-4.8) 03/16/23 05:30 [place] # (Auto) 0.4 10^3/uL (0.2-0.9) 03/16/23 05:30 Eos # (Auto) 0.1 10^3/uL (0.0-0.8) 03/16/23 05:30 Baso # (Auto) 0.0 10^3/uL (0.0-0.1) 03/16/23 05:30 Nucleated RBC % (auto) 0 % 03/16/23 05:30 Nucleated RBCs # 0.0 /100WBC 03/16/23 05:30 Sodium 138 mmol/L (136-145) 03/16/23 05:30 Potassium 3.0 mmol/L (3.5-5.1) L 03/16/23 05:30 Chloride 95 mmol/L (98-107) L 03/16/23 05:30 Carbon Dioxide 30 mmol/L (22-29) H 03/16/23 05:30 Anion Gap 16.0 (5-19) 03/16/23 05:30 BUN 27 mg/dL (8-23) H 03/16/23 05:30 Creatinine 1.6 mg/dL (0.5-0.9) H 03/16/23 05:30 GFR Calculation Not Reportable 03/16/23 05:30 Glucose 139 mg/dL (65-115) H 03/16/23 05:30 Calculated Osmolality 293 mOsm/kg (285-295) 03/16/23 05:30 Lactic Acid 1.7 mmol/L (0.5-2.2) 03/16/23 06:18 Calcium 8.6 mg/dL (8.5-10.5) 03/16/23 05:30 Magnesium 1.8 mg/dL (1.7-2.3) 03/16/23 05:30 Total Bilirubin 0.4 mg/dL (0.15-1.2) 03/16/23 05:30 AST 27 U/L (0-32) 03/16/23 05:30 ALT 13 U/L (0-33) 03/16/23 05:30 Alkaline Phosphatase 92 U/L (35-105) 03/16/23 05:30 C-Reactive Protein 90.3 mg/L (0.0-4.9) H 03/16/23 05:30 NT-Pro-B Natriuret Pep 351 pg/mL (0-450) 03/16/23 05:30 Total Protein 7.0 g/dL (6.6-8.7) 03/16/23 05:30 Albumin 4.1 g/dL (3.5-5.2) 03/16/23 05:30 Globulin 2.9 g/dL (1.3-4.6) 03/16/23 05:30 TSH 4.63 uIU/mL (0.27-4.20) H 03/16/23 05:30 Urine Color Yellow (Yellow) 03/16/23 06:10 Urine Appearance Clear (CLEAR) 03/16/23 06:10 Urine pH 5 (5-7) 03/16/23 06:10 Ur Specific [place] 1.020 (1.005-1.030) 03/16/23 06:10 Urine Protein Neg (Negative) 03/16/23 06:10 Urine Glucose (UA) Norm (Normal) 03/16/23 06:10 Urine Ketones Negative (Negative) 03/16/23 06:10 Urine Blood Neg (Negative) 03/16/23 06:10 Urine Nitrate Negative (Negative) 03/16/23 06:10 Urine Bilirubin Neg (Negative) 03/16/23 06:10 Urine Urobilinogen Norm mg/dL (Negative) 03/16/23 06:10 Ur Leukocyte Esterase Negative (Negative) 03/16/23 06:10 Nasal Influ A H1 2008 PCR Not detected (NOT DETECT) 03/16/23 07:29 Adenovirus (PCR) Not detected (NOT DETECT) 03/16/23 07:29 C. pneumoniae DNA (PCR) Not detected (NOT DETECT) 03/16/23 07:29 Coronavirus 229E (PCR) Not detected (NOT DETECT) 03/16/23 07:29 Human Metapneumovir PCR Not detected (NOT DETECT) 03/16/23 07:29 Influenza A (H1) PCR Not detected (NOT DETECT) 03/16/23 07:29 Influenza A (H3) PCR Not detected (NOT DETECT) 03/16/23 07:29 Influenza Type A (PCR) Not detected (NOT DETECT) 03/16/23 07:29 Influenza Type B (PCR) Not detected (NOT DETECT) 03/16/23 07:29 M. pneumoniae (PCR) Not detected (NOT DETECT) 03/16/23 07:29 Parainfluenza 1 (PCR) Not detected (NOT DETECT) 03/16/23 07:29 Parainfluenza 2 (PCR) Not detected (NOT DETECT) 03/16/23 07:29 Parainfluenza 3 (PCR) Not detected (NOT DETECT) 03/16/23 07:29 Parainfluenza 4 (PCR) Not detected (NOT DETECT) 03/16/23 07:29 RSV Type A (PCR) Not detected (NOT DETECT) 03/16/23 07:29 RSV Type B (PCR) Not detected (NOT DETECT) 03/16/23 07:29 Entero/Rhino (PCR) Not detected (NOT DETECT) 03/16/23 07:29 SARS-CoV-2 (PCR) Not detected (NOT DETECT) 03/16/23 07:29 Discharge Plan Discharge Patient Disposition: Admitted As Inpatient Admit Provider: Rajinder Lazo Clinical Impression: Fever, Alzheimer disease, Acute kidney injury Condition: Stable Coding Level of Care Code ED Rack Cleaner for Gavi Alan
[2023-03-16 07:39] LABS: C Reactive Protein 90.3 mg/L (0.0-4.9); NT Pro B Type Natriuretic Pept 351 pg/mL (0-450)
--- NOTE | 2023-03-16 08:44 | CT_ITS ---
WS: [id number] CT ABDOMEN PELVIS TECHNIQUE: Noncontrast CT of the abdomen and pelvis with coronal and sagittal reformatted images. CLINICAL INFORMATION: Abdominal pain COMPARISON: CT March 14, 2023 DLP: 785.[address] scans at [facility] use at least one of these dose optimization techniques: automated e xposure control; mA and/or kV adjustment per patient size (includes targeted exams where dose is matc hed to clinical indication); or iterative reconstruction. FINDINGS: Cholelithiasis unchanged from March 14, 2023. Large laminated gallstone measuring 2 cm. This is unchan ged in appearance since 2019. Trace LEFT pleural fluid. Bibasilar atelectasis. Normal noncontrast dejon er. Stable hepatic cysts in liver dome. Normal GE junction. Air-fluid level in distended stomach. Spl enic granulomas. Noncontrast pancreas appears normal. Adrenal glands appear normal. No hydronephrosis in either kidney. Contrast in the bladder from prior CT. Normal caliber abdominal aorta. Aortic calcification. Tiny fat-containing umbilical hernia. Sligh t anterolisthesis L3 on L4 and L4 on L5. Normal sigmoid colon. No high-grade small or large bowel obs truction. No free fluid in the abdomen or pelvis. CT/CT abdomen pelvis wo con [id number] IMPRESSION: 1. Stable cholelithiasis. 2. Distended stomach with air-fluid level is new from March 14, 2023. No eviden ce of high-grade small or large bowel obstruction. 3. No hydronephrosis in either kidney. 4. Trace LEFT pleural fluid with slight atelectasis LEFT lower lobe. 5. No other new findings
[2023-03-16] MEDS: levofloxacin-dextrose 5 % 750 MG/150 ML PREMIX 100 MG IV (09:13)
[2023-03-16 09:22] LABS: Adenovirus Not Detected (NOT DETECT); Chlamydia Pneumoniae Not Detected (NOT DETECT); Coronavirus 229E,HKU1,NL63,OC4 Not Detected (NOT DETECT); Human Metapneumovirus Not Detected (NOT DETECT); Human Rhinovirus/Enterovirus Not Detected (NOT DETECT); Influenza A Not Detected (NOT DETECT); Influenza A H1 Not Detected (NOT DETECT); Influenza A H1-2009 Not Detected (NOT DETECT); Influenza A H3 Not Detected (NOT DETECT); Influenza B Not Detected (NOT DETECT); Mycoplasma Pneumoniae Not Detected (NOT DETECT); Parainfluenza Virus Type 1 Not Detected (NOT DETECT); Parainfluenza Virus Type 2 Not Detected (NOT DETECT); Parainfluenza Virus Type 3 Not Detected (NOT DETECT); Parainfluenza Virus Type 4 Not Detected (NOT DETECT); Respiratory Syncytial Virus A Not Detected (NOT DETECT); Respiratory Syncytial Virus B Not Detected (NOT DETECT); SARS-COV-2 Not Detected (NOT DETECT)
[2023-03-16 11:56] LABS: Magnesium 1.8 mg/dL (1.7-2.3); Thyroid Stimulating Hormone 4.63 uIU/mL (0.27-4.20)
--- NOTE | 2023-03-16 12:12 | CT_ITS ---
WS: [id number] CT HEAD TECHNIQUE: Noncontrast CT of the head obtained from the skullbase to the vertex. CLINICAL INFORMATION: AMS COMPARISON: February 23, 2022 DLP: 1095.[address] scans at [facility] use at least one of these dose optimization techniques: automated e xposure control; mA and/or kV adjustment per patient size (includes targeted exams where dose is matc hed to clinical indication); or iterative reconstruction. FINDINGS: No evidence of intracranial hemorrhage or mass effect. Ventricular system and basal cisterns are odell nt. Mild small vessel changes with moderate parenchymal volume loss. No extra-axial fluid collections . No evidence of mass or mass effect. Intracranial vascular calcification. Mild prominence of the zohra tricular system is unchanged. Paranasal sinuses and mastoid air cells are well aerated. .Normal visualized soft tissues. CT/CT head wo con* [id number] IMPRESSION: 1. No evidence of intracranial hemorrhage or mass effect. 2. Mild small vessel changes with moderate parenchymal volume loss. 3. No acute intracranial findings.
--- NOTE | 2023-03-16 12:13 | FL_ITS ---
WS: [id number] Fluoroscopy examination. Patient presents for possible lumbar puncture. Patient was combative and was unable to remain still for this examination. We attempted to contact [facility] emergency department for sedation without success. Patient will be returned to the ED. Unsuccessful attempt at lumbar puncture due to patient movement.
--- NOTE | 2023-03-16 13:19 | PM.HP ---
Providers/Chief Complaint Admitting Physician: Rajinder Lazo MD Primary Care Provider: Ben Suazo DO Chief Complaint: Cough History of Present Illness Beena Sam is a 87 year old female is in the memory care unit for fever, confusion. Family reports this has been going on perhaps 3 days or so. Had an occasional cough. Seen by primary care provider, yesterday and was put on cefdinir. Draws her legs up at some of the time. No obvious vomiting. She did have a blowout in stool yesterday but typically does not have diarrhea. No ill contacts. Perhaps some type of dental pain several weeks ago that has since resolved. No fever at that time. No obvious headache but communication is difficult secondary to dementia. Recently was seen in the ER, and concern of left lower quadrant pain. In the emergency department she received a dose of Levaquin Review of Systems General: Reports: ROS unobtainable due to medical condition (Unable to obtain from patient secondary to dementia) Medications/Allergies Home Medications Medication Instructions Recorded Confirmed Last Taken Type acetaminophen 500 mg tablet 500 mg PO DAILY PRN Pain 08/15/19 03/16/23 Unknown History (Tylenol Extra Strength) alfuzosin 10 mg tablet,extended 10 mg PO BEDTIME 08/15/19 03/16/23 Unknown History release 24 hr latanoprost 0.005 % eye drops 1 drop ophthalmic (eye) BEDTIME 08/15/19 03/16/23 Unknown History pantoprazole 40 mg tablet,delayed 40 mg PO DAILY 08/15/19 03/16/23 Unknown History release timolol 0.5 % eye drops 1 drop ophthalmic (eye) BID 08/15/19 03/16/23 Unknown History duloxetine 60 mg capsule,delayed 60 mg PO DAILY 10/30/19 03/16/23 Unknown History release hydrochlorothiazide 25 mg tablet 25 mg PO DAILY #30 tabs 01/22/21 03/16/23 Unknown Rx DEPENDS/BRIEFS #180 ea 06/17/21 03/16/23 Unknown Rx wheelchair #1 ea 06/18/21 03/16/23 Unknown Rx acetaminophen 325 mg tablet 650 mg PO Q6H PRN Pain 01/21/22 03/16/23 Unknown History aluminum-mag hydroxide-simethicone 30 ml PO Q4H PRN Heartburn 01/21/22 03/16/23 Unknown History 200 mg-200 mg-20 mg/5 mL oral susp bisacodyl 10 mg rectal suppository 10 mg DC DAILY PRN Constipation 01/21/22 03/16/23 Unknown History camphor-menthol 0.2 %-3.5 % 1 applic topical DAILY PRN Pain 01/21/22 03/16/23 Unknown History topical gel loperamide 2 mg tablet 4 mg PO DAILY PRN Diarrhea 01/21/22 03/16/23 Unknown History magnesium hydroxide 400 mg/5 mL 30 ml PO DAILY PRN Constipation 01/21/22 03/16/23 Unknown History oral suspension (Milk of Magnesia) melatonin 5 mg tablet 5 mg PO BEDTIME 01/21/22 03/16/23 Unknown History olanzapine 5 mg tablet 5 mg PO BID #60 tabs 10/24/22 03/16/23 Unknown Rx pregabalin 25 mg capsule (Lyrica) 25 mg PO BID #60 caps 11/18/22 03/16/23 Unknown Rx hydrocodone 5 mg-acetaminophen 325 1 tab PO BID 30 days #60 tabs 01/25/23 03/16/23 Unknown Rx mg tablet azithromycin 250 mg tablet See Rx Instructions PO .COMPLEX #6 03/13/23 03/16/23 Unknown Rx (Zithromax Z-Jr) tabs cefdinir 300 mg capsule 300 mg PO BID 7 days #14 caps 03/13/23 03/16/23 Unknown Rx dicyclomine 20 mg tablet 20 mg PO TID PRN Abdominal 03/14/23 03/16/23 Unknown Rx pain/colon spasm #30 tabs lorazepam 0.5 mg tablet 0.25 mg PO TID anxiety 03/16/23 03/16/23 Unknown History Allergies Allergy/AdvReac Type Severity Reaction Status Date / Time metronidazole [From Flagyl] Allergy Unknown Verified 03/16/23 08:47 Opioids - Morphine Analogues Allergy Unknown Verified 03/16/23 08:47 Penicillins Allergy Unknown Verified 03/16/23 08:47 Sulfa (Sulfonamide Allergy Unknown Verified 03/16/23 08:47 Antibiotics) PFSH Acute PFSH: Medical History Dementia with behavioral disturbance DEWAYNE (generalized anxiety disorder) GERD (gastroesophageal reflux disease) HTN (hypertension) Osteoarthritis Surgical History H/O cataract extraction Bilateral - Dr Casas H/O neck surgery H/O shoulder surgery 2011 Dr Live in [place] History of colonoscopy 2010 - normal per patient History of hysterectomy Hx of tonsillectomy Family History Mother Dementia Father Cancer Lymphoma Brother Diabetes Social History (Updated 03/16/23 @ 13:23 by Rajinder Lazo MD) Smoking and tobacco status: never smoked Alcohol intake: never Vitals/I&O/Wt Last Vital Signs Temp 101.2 F H 03/16/23 05:44 Pulse 70 03/16/23 12:30 Resp 15 03/16/23 12:30 BP 126/64 03/16/23 12:30 Pulse Ox 95 03/16/23 12:30 O2 Del Method Nasal Cannula 03/16/23 06:02 O2 Flow Rate 2 03/16/23 06:02 Weight last 48 hrs Weight 72.575 kg Physical Exam Narrative: General exam is a female, somewhat difficult to arouse but can answer a few simple questions. Dementia evident. Every once in a while she seems to lift her legs in the air, but denies any pain. Temperature 101.2 HEENT: Atraumatic and normocephalic. Oropharynx clear Neck is supple no lymphadenopathy thyromegaly Cardiovascular regular rate and rhythm, no murmur Lungs coarse at the bases. No wheezes or crackles Abdomen is soft with positive bowel sounds. No obvious organomegaly exam was deferred Extremities no cyanosis clubbing or edema, cap refill brisk Skin no rash Neuro no focal deficits Data 03/16/23 05:30 03/16/23 05:30 Other Labs: Liver function tests are normal CRP 90 Calcium, lactic acid, albumin normal TSH 4.63 Magnesium 1.8 Viral respiratory panel negative Urinalysis negative Head CT no acute changes CT abdomen pelvis trace left pleural fluid, slight atelectasis. Stomach distended with some fluid. Cholelithiasis without cholecystitis Chest x-ray left lower lobe atelectasis. I reviewed this as well. Insignificant appearing effusion EKG which I reviewed demonstrates sinus tachycardia, left axis deviation, rate of 105, poor R wave progression Micro: Microbiology 03/16/23 06:23 Blood Culture - Preliminary Blood SPECIMEN COLLECTED 03/16/23 06:18 Blood Culture - Preliminary Blood SPECIMEN COLLECTED A&P Assessment and plan (1) Fever: Patient presents with fever. Etiology is not completely clear. There is some concern of pulmonary infection, although only atelectasis and a very small amount of pleural fluid is seen on the left. Viral panel was negative. Family also relates some dental issues several weeks ago. Could conceivably have bacteremia from this, or a GI etiology. Blood cultures have been drawn We will make sure urine is cultured although it appears negative on urinalysis Check echocardiogram Lumbar puncture is ordered Patient has recently had outpatient antibiotics consisting of Zithromax and cefdinir. At this point we will initiate Zosyn, vancomycin. Check MRSA PCR At this point she is not able to give a sputum for culture. If lumbar puncture is concerning may need to consider Rocephin (2) CAP (community acquired pneumonia): Clinical evidence not great for pneumonia. Slight atelectasis on left side with very small amount of pleural fluid. Failed outpatient treatment Initiate vancomycin and Zosyn, check MRSA PCR (3) Anemia: Appears to have chronic anemia (4) Hypokalemia: We will supplement. Magnesium level was checked and normal Repeat BMP tomorrow (5) Acute kidney injury: Hydrate cautiously Recheck creatinine tomorrow Hold hydrochlorothiazide (6) Dementia with behavioral disturbance: Hold many of her sedating medications, monitoring behavior closely. She has evidence currently of acute encephalopathy secondary to her underlying illness Plan Multiple other medical problems as outlined in past medical history Allow natural Heparin subcutaneous for DVT prophylaxis Attestations Medical Necessity Statement*: Will require greater than 2 midnight stay for evaluation and treatment of fever and possible pneumonia. Diagnoses Fever R50.9 CAP (community acquired pneumonia) J18.9 Anemia D64.9 Hypokalemia E87.6 Acute kidney injury N17.9 Dementia with behavioral disturbance F03.91 Time Spent (min) 59
--- NOTE | 2023-03-16 13:35 | PC.NURSE ---
PT TAKEN TO RADIOLOGY FOR [facility] BY DR. CRUZ
[2023-03-16] MEDS: cefTRIAXone 2,000 MG in sodium chloride 0.9% (plus) 50 ML 100 MG IV (16:35)
[2023-03-16] MEDS: vancomycin 1,000 MG in sodium chloride 0.9% 250 ML 250 MG IV (17:12)
[2023-03-16] MEDS: heparin 5,000 unit/mL INJ 1 mL 5000 UNIT SUBCUT (18:23)
[2023-03-17] VITALS (10 sets, daily range): BP systolic 117–159; BP diastolic 54–92; PULSE 61–79; RESP 15–19; TEMP 36.4–36.8; O2SAT 93–97
[2023-03-17] MEDS: cefTRIAXone 2,000 MG in sodium chloride 0.9% (plus) 50 ML 100 MG IV ×2 (03:01→15:55)
[2023-03-17 05:37] LABS: Basophils % 0.2 %; Hematocrit 30.8 % (37.0-47.0); Hemoglobin 9.7 g/dL (11.5-15.3); Lymphocytes # 1.4 10^3/uL (0.8-4.8); Lymphocytes % 27.5 %; Mean Corpuscular HGB Conc 31.5 g/dL (30.0-36.0); Mean Corpuscular Hemoglobin 29.8 pg (28.0-34.0); Mean Corpuscular Volume 94.5 fl (81-99); Mean Platelet Volume 9.6 fL (7.4-10.4); Monocytes # 0.5 10^3/uL (0.2-0.9); Monocytes % 10.3 %; Neutrophils # 3.15 10^3/uL (1.8-7.7); Neutrophils % 61.4 %; Nucleated Red Blood Cells % 0 %; Platelet Count 176 10^3/cmm (130-400); Red Blood Count 3.26 10^6/uL (4.1-5.3); Red Cell Distribution Width 13.9 % (12.1-15.1); White Blood Count 5.1 10^3/uL (4.0-10.0)
[2023-03-17 06:02] LABS: Alanine Aminotransferase 9 U/L (0-33); Albumin Level 3.8 g/dL (3.5-5.2); Alkaline Phosphatase 76 U/L (35-105); Anion Gap 19.4 (5-19); Aspartate Amino Transferase 17 U/L (0-32); Blood Urea Nitrogen 32 mg/dL (8-23); Calcium 8.6 mg/dL (8.5-10.5); Carbon Dioxide 23 mmol/L (22-29); Chloride 104 mmol/L (98-107); Globulin 2.4 g/dL (1.3-4.6); Glucose 121 mg/dL (65-115); Osmolality Calculated 304 mOsm/kg (285-295); Potassium 3.4 mmol/L (3.5-5.1); Sodium 143 mmol/L (136-145); Total Bilirubin 0.2 mg/dL (0.15-1.2); Total Protein 6.2 g/dL (6.6-8.7)
[2023-03-17] MEDS: heparin 5,000 unit/mL INJ 1 mL 5000 UNIT SUBCUT ×2 (06:17→18:57)
--- NOTE | 2023-03-17 14:25 | P.PN_ITS ---
Subjective Subjective: Mental status appears to be improved today. She is correctly able to tell me her name as still. She recognizes she is in [facility]. Correctly named her daughter at bedside, however did identify her as granddaughter instead of daughter. Replies appropriately to questions with regards to pain, attempting to have a conversation with daughter at bedside with appropriate words. Tmax 101.2 Fahrenheit at 2 PM yesterday. Lumbar puncture was unable to be obtained in spite of attempts by ER and IR. Medications: Reviewed: Yes Vitals/I&O/Wt Last Vital Signs Temp 97.6 F 03/17/23 11:33 Pulse 78 03/17/23 11:33 Resp 18 03/17/23 11:33 BP 123/65 03/17/23 11:33 Pulse Ox 93 03/17/23 11:33 O2 Del Method Nasal Cannula 03/17/23 11:33 O2 Flow Rate 2 03/17/23 08:29 03/16/23 03/17/23 03/17/23 22:59 06:59 14:59 Intake Total 450 / 450 50 / 500 Balance 450 / 450 50 / 500 Weight last 48 hrs Weight 72.575 kg Physical Exam Narrative: General: No acute distress, AO x2, laying in bed HEENT: PERRLA, pupils bilaterally equal and reactive, pallors not present Chest: Crackles to auscultation to right lung infrascapular and anteriorly. CVS: S1-S2 regular, no murmurs, no tachycardia, no gallops, no rubs Abdomen: Soft, nontender, no organomegaly, bowel sounds present Neuro: No focal deficits, moves extremities while laying in bed, attempting to have a conversation, uses appropriate words. Data 03/17/23 05:13 03/17/23 05:13 Micro: Microbiology 03/16/23 17:47 MRSA Culture - Final Nose 03/16/23 06:10 Urine Culture - Preliminary Urine,Clean Catch 03/16/23 06:23 Blood Culture - Preliminary Blood NEGATIVE TO DATE 03/16/23 06:18 Blood Culture - Preliminary Blood NEGATIVE TO DATE A&P Assessment and plan (1) Fever: Patient presents with fever. Etiology is not completely clear. There is some concern of pulmonary infection, although only atelectasis and a very small amount of pleural fluid is seen on the left. Viral panel was negative. Family also relates some dental issues several weeks ago. Could conceivably have bacteremia from this, or a GI etiology. CT of the abdomen and pelvis showed gallstones without signs of cholecystitis. There are air-fluid levels in the distended stomach but otherwise no other acute abnormalities. Blood cultures have been drawn and pending Urine culture pending Lumbar puncture was unable to be obtained by ER or by IR. Lower suspicion for meningitis at this time given clinical improvement over yesterday. Patient is currently alert awake, oriented x2. She is able to participate in conversation and uses words appropriately. We will attempt to obtain sputum for culture. (2) CAP (community acquired pneumonia): Clinical evidence not great for pneumonia. Slight atelectasis on left side with very small amount of pleural fluid. However clinically today appears to have right-sided crackles. Patient may have aspirated. She prefers to lay on her right side as she is currently doing. Continue vancomycin and Zosyn, check MRSA PCR (3) Anemia: Appears to have chronic anemia (4) Hypokalemia: We will supplement. (5) Acute kidney injury: Hydrate cautiously, creatinine currently improving to 1.4 Recheck creatinine tomorrow Hold hydrochlorothiazide (6) Dementia with behavioral disturbance: Hold many of her sedating medications, monitoring behavior closely. She has evidence currently of acute encephalopathy secondary to her underlying illness Plan Multiple other medical problems as outlined in past medical history Allow natural Heparin subcutaneous for DVT prophylaxis Attestations Medical Necessity Statement*: Continued need of IV antibiotics, fever source evaluation, mental status monitoring, currently mental status appears to be improving over the last 24 hours. Coding Level of Care Code Acute Code for [facility] Diagnoses Fever R50.9 CAP (community acquired pneumonia) J18.9 Anemia D64.9 Hypokalemia E87.6 Acute kidney injury N17.9 Dementia with behavioral disturbance F03.91
[2023-03-17] MEDS: albuterol 2.5 mg/3 mL Neb INHALATION (15:01)
[2023-03-17] MEDS: acetaminophen 325 mg Tablet 650 MG PO (15:21)
[2023-03-17] MEDS: ketorolac 30 mg/mL INJ 15 MG IVP (15:24)
[2023-03-17] MEDS: lidocaine 1% 5 ML in potassium chloride premix 100 ML 52.5 ML IV (16:11)
[2023-03-18] VITALS (9 sets, daily range): BP systolic 137–179; BP diastolic 63–79; PULSE 74–96; RESP 16–20; TEMP 36.3–37.2; O2SAT 90–98
[2023-03-18] MEDS: cefTRIAXone 2,000 MG in sodium chloride 0.9% (plus) 50 ML 100 MG IV ×2 (02:06→14:38)
[2023-03-18] MEDS: vancomycin 1,000 MG in sodium chloride 0.9% 250 ML 250 MG IV (02:53)
[2023-03-18 03:54] LABS: Basophils % 0.1 %; Eosinophils # 0.1 10^3/uL (0.0-0.8); Eosinophils % 1.9 %; Hematocrit 33.3 % (37.0-47.0); Hemoglobin 10.5 g/dL (11.5-15.3); Lymphocytes # 1.9 10^3/uL (0.8-4.8); Lymphocytes % 28.7 %; Mean Corpuscular HGB Conc 31.5 g/dL (30.0-36.0); Mean Corpuscular Hemoglobin 29.7 pg (28.0-34.0); Mean Corpuscular Volume 94.3 fl (81-99); Mean Platelet Volume 9.5 fL (7.4-10.4); Monocytes # 0.5 10^3/uL (0.2-0.9); Monocytes % 6.7 %; Neutrophils # 4.19 10^3/uL (1.8-7.7); Neutrophils % 62.3 %; Nucleated Red Blood Cells % 0 %; Platelet Count 212 10^3/cmm (130-400); Red Blood Count 3.53 10^6/uL (4.1-5.3); Red Cell Distribution Width 14.1 % (12.1-15.1); White Blood Count 6.7 10^3/uL (4.0-10.0)
[2023-03-18 04:15] LABS: Alanine Aminotransferase 11 U/L (0-33); Alkaline Phosphatase 85 U/L (35-105); Blood Urea Nitrogen 25 mg/dL (8-23); Calcium 8.7 mg/dL (8.5-10.5); Carbon Dioxide 27 mmol/L (22-29); Chloride 102 mmol/L (98-107); Globulin 2.4 g/dL (1.3-4.6); Glucose 89 mg/dL (65-115); Osmolality Calculated 298 mOsm/kg (285-295); Sodium 142 mmol/L (136-145); Total Bilirubin 0.2 mg/dL (0.15-1.2); Total Protein 6.4 g/dL (6.6-8.7)
[2023-03-18 04:16] LABS: Anion Gap 16.3 (5-19); Aspartate Amino Transferase 25 U/L (0-32); Potassium 3.3 mmol/L (3.5-5.1)
[2023-03-18] MEDS: heparin 5,000 unit/mL INJ 1 mL 5000 UNIT SUBCUT ×2 (06:03→18:31)
[2023-03-18] MEDS: levofloxacin-dextrose 5 % 750 MG/150 ML PREMIX 100 MG IV (06:03)
[2023-03-18] MEDS: albuterol 2.5 mg/3 mL Neb INHALATION (08:20)
[2023-03-18] MEDS: pantoprazole DR 40 mg Tablet PO (09:07)
[2023-03-18] MEDS: duloxetine 60 mg Capsule PO (09:07)
--- NOTE | 2023-03-18 15:06 | USCV_ITS ---
Beena Sam Age: 87 Gender: F : 1935 Exam Date: 03/18/2023 12:42 Ordering Phys: Hyacinth March MD Technologist: KRISSY Exam Location: [facility] [place] Indication: ef BP: / HR: 168 Rhythm: Sinus Technical Quality: Adequate MEASUREMENTS (Male / Female) Normal Values 2D ECHO LV Diastolic Diameter PLAX 5.0 cm 4.2 - 5.9 / 3.9 - 5.3 cm LV Systolic Diameter PLAX 3.1 cm IVS Diastolic Thickness 0.6 cm 0.6 - 1.0 / 0.6 - 0.9 cm IVS Systolic Thickness 1.3 cm LVPW Diastolic Thickness 0.6 cm 0.6 - 1.0 / 0.6 - 0.9 cm LVPW Systolic Thickness 1.2 cm LVOT Diameter 2.2 cm LV Ejection Fraction 2D Teich 67.1 % LV Ejection Fraction MOD 2C 33.7 % LV Ejection Fraction 2C AL 33.1 % LA Diameter 2.9 cm M-MODE Aortic Annulus Diameter 3.0 cm LA Ao Ratio MM 1.0 MV E Point Septal Separation 0.4 cm DOPPLER AV Peak Velocity 137.0 cm/s LVOT Peak Velocity 116.0 cm/s AV Area Cont Eq vti 3.1 cm squared AV Area Cont Eq pk 3.1 cm squared MV Area PHT 3.7 cm squared Mitral E to A Ratio 0.6 MV E' Velocity 70.0 cm/s PV Peak Velocity 105.0 cm/s FINDINGS Left Ventricle Normal left ventricular size, systolic function and wall thickness, with no regional wall motion abnormalities. Left ventricular ejection fraction is estimated at 65 %. . Grade I/IV diastolic dysfunction (abnormal relaxation filling pattern), normal to mildly elevated filling pressures. Right Ventricle The right ventricle is normal in size and function. Right Atrium The right atrium is normal in size. Left Atrium The left atrium is normal in size. Mitral Valve Structurally normal mitral valve without significant stenosis or prolapse. There is no mitral regurgitation. Aortic Valve Structurally normal aortic valve without significant sclerosis or stenosis. There is trace aortic regurgitation. Tricuspid Valve Structurally normal tricuspid valve without significant stenosis or regurgitation. Pulmonary artery systolic pressure is normal. Pulmonic Valve Structurally normal pulmonic valve without significant stenosis. There is no pulmonic regurgitation. Pericardium Normal pericardium without effusion. Aorta Normal ascending aorta dimension. IVC The inferior vena cava appears normal. CONCLUSIONS 1-Normal left ventricular size, systolic function and wall thickness, with no regional wall motion abnormalities. Left ventricular ejection fraction is estimated at 65 %. . Grade I/IV diastolic dysfunction (abnormal relaxation filling pattern), normal to mildly elevated filling pressures. 2-No significant valve abnormalities. 3-There is no pericardial effusion. 4-No significant change since the prior echocardiogram study Karen Thomas MD (Electronically Signed) Final Date: 18 March 2023 13:59 S
--- NOTE | 2023-03-18 16:14 | PM.PN ---
Subjective Subjective: Patient is awake alert, oriented x2. Able to correctly tell me her name. Able to say full sentences. I asked her what she had for lunch she stated I do not remember but probably spaghetti. Upon asking where she lives she states she lives in there. She knows she is in [place] however unable to see hospital at this time. Medications: Reviewed: Yes Vitals/I&O/Wt Last Vital Signs Temp 97.3 F L 03/18/23 12:00 Pulse 81 03/18/23 12:00 Resp 16 03/18/23 12:00 BP 156/76 03/18/23 12:00 Pulse Ox 96 03/18/23 12:00 O2 Del Method Nasal Cannula 03/18/23 08:18 O2 Flow Rate 2 03/18/23 08:18 03/18/23 03/18/23 03/18/23 06:59 14:59 22:59 Intake Total 300 / 455 150 / 150 50 / 200 Balance 300 / 455 150 / 150 50 / 200 Physical Exam Narrative: General: No acute distress, AO x2 HEENT: PERRLA, pupils bilaterally equal and reactive, pallors not present Chest: Normal vesicular breath sounds, no added sounds, equal good air entry bilaterally CVS: S1-S2 regular, no murmurs, no tachycardia, no gallops, no rubs Abdomen: Soft, nontender, no organomegaly, bowel sounds present Neuro: No focal deficits, no facial deformity, AO x2, power 5/5 in all limbs Data 03/18/23 03:33 03/18/23 03:33 Micro: Microbiology 03/16/23 06:10 Urine Culture - Final Urine,Clean Catch 03/16/23 17:47 MRSA Culture - Final Nose A&P Assessment and plan (1) Fever: Patient presents with fever. Etiology is not completely clear. There is some concern of pulmonary infection, although only atelectasis and a very small amount of pleural fluid is seen on the left. Viral panel was negative. Family also relates some dental issues several weeks ago. Could conceivably have bacteremia from this, or a GI etiology. CT of the abdomen and pelvis showed gallstones without signs of cholecystitis. There are air-fluid levels in the distended stomach but otherwise no other acute abnormalities. Blood cultures have been drawn and pending Urine culture pending Lumbar puncture was unable to be obtained by ER or by IR. Lower suspicion for meningitis at this time given clinical improvement over yesterday. Patient is currently alert awake, oriented x2. She is able to participate in conversation and uses words appropriately. We will attempt to obtain sputum for culture. (2) CAP (community acquired pneumonia): Clinical evidence not great for pneumonia. Slight atelectasis on left side with very small amount of pleural fluid. However clinically today appears to have right-sided crackles. Patient may have aspirated. She prefers to lay on her right side as she is currently doing. Continue vancomycin and Zosyn, check MRSA PCR (3) Anemia: Appears to have chronic anemia (4) Hypokalemia: We will supplement. (5) Acute kidney injury: Hydrate cautiously, creatinine currently improving to 1.4 Recheck creatinine tomorrow Hold hydrochlorothiazide (6) Dementia with behavioral disturbance: Hold many of her sedating medications, monitoring behavior closely. She has evidence currently of acute encephalopathy secondary to her underlying illness Plan Multiple other medical problems as outlined in past medical history Allow natural Heparin subcutaneous for DVT prophylaxis Plan for today: Continue iv abx, mental status slowly improving, resume home medication sincluding zyprexa, lorazepan prn. Continue to hold lyrica and opiates. No complaints of pain today. Attestations Medical Necessity Statement*: slowly improving, planned transition to oral abx tomorrow if continues to be afberile. Coding Level of Care Code Acute Code for [facility] Diagnoses Fever R50.9 CAP (community acquired pneumonia) J18.9 Anemia D64.9 Hypokalemia E87.6 Acute kidney injury N17.9 Dementia with behavioral disturbance F03.91
[2023-03-18] MEDS: OLANZapine 5 mg TABLET PO (17:35)
[2023-03-18] MEDS: ipratropium-albuterol 3 mL Neb INHALATION (19:46)
[2023-03-18] MEDS: hyDRALAzine 20 mg/mL INJ 1 mL 10 MG IVP (19:58)
[2023-03-19] VITALS (13 sets, daily range): BP systolic 132–170; BP diastolic 53–94; PULSE 64–96; RESP 15–22; TEMP 36.8–37.7; O2SAT 93–100
[2023-03-19] MEDS: hyDRALAzine 20 mg/mL INJ 1 mL 10 MG IVP ×2 (01:32→06:05)
[2023-03-19] MEDS: cefTRIAXone 2,000 MG in sodium chloride 0.9% (plus) 50 ML 100 MG IV (01:58)
[2023-03-19] MEDS: vancomycin 1,000 MG in sodium chloride 0.9% 250 ML 250 MG IV (02:42)
--- NOTE | 2023-03-19 02:49 | PC.NURSE ---
At approximately 0215 Lab came to pt room to do blood draw. Blood draw taken from right forearm, the vein blew and a large hematoma formed on the right forearm. pressure dressing applied to stop the bleeding. Soft danielle wrap applied to protect the forearm from skin tear. hematoma measurements are 14 cm long and 9 cm wide.
[2023-03-19] MEDS: ipratropium-albuterol 3 mL Neb INHALATION ×4 (03:19→21:54)
[2023-03-19 03:33] LABS: Basophils % 0.3 %; Eosinophils # 0.2 10^3/uL (0.0-0.8); Eosinophils % 2.2 %; Hematocrit 34.3 % (37.0-47.0); Lymphocytes # 2.3 10^3/uL (0.8-4.8); Lymphocytes % 34.2 %; Mean Corpuscular HGB Conc 32.1 g/dL (30.0-36.0); Mean Corpuscular Hemoglobin 28.6 pg (28.0-34.0); Mean Corpuscular Volume 89.1 fl (81-99); Mean Platelet Volume 9.8 fL (7.4-10.4); Monocytes # 0.5 10^3/uL (0.2-0.9); Monocytes % 6.7 %; Neutrophils # 3.78 10^3/uL (1.8-7.7); Neutrophils % 55.3 %; Nucleated Red Blood Cells % 0 %; Platelet Count 273 10^3/cmm (130-400); Red Blood Count 3.85 10^6/uL (4.1-5.3); Red Cell Distribution Width 13.8 % (12.1-15.1); White Blood Count 6.8 10^3/uL (4.0-10.0)
[2023-03-19 03:51] LABS: Alanine Aminotransferase 11 U/L (0-33); Albumin Level 4.2 g/dL (3.5-5.2); Alkaline Phosphatase 92 U/L (35-105); Anion Gap 18.3 (5-19); Aspartate Amino Transferase 27 U/L (0-32); Blood Urea Nitrogen 19 mg/dL (8-23); Calcium 9.3 mg/dL (8.5-10.5); Carbon Dioxide 27 mmol/L (22-29); Chloride 101 mmol/L (98-107); Creatinine Clr Calc Pharmacy 48.5202; Globulin 2.9 g/dL (1.3-4.6); Glucose 103 mg/dL (65-115); Osmolality Calculated 299 mOsm/kg (285-295); Potassium 3.3 mmol/L (3.5-5.1); Sodium 143 mmol/L (136-145); Total Bilirubin 0.3 mg/dL (0.15-1.2); Total Protein 7.1 g/dL (6.6-8.7)
[2023-03-19] MEDS: heparin 5,000 unit/mL INJ 1 mL 5000 UNIT SUBCUT ×2 (06:42→18:04)
[2023-03-19] MEDS: pantoprazole DR 40 mg Tablet PO (08:56)
[2023-03-19] MEDS: duloxetine 60 mg Capsule PO (08:56)
[2023-03-19] MEDS: OLANZapine 5 mg TABLET PO (08:56)
--- NOTE | 2023-03-19 12:33 | XRR_ITS ---
PROCEDURE INFORMATION: Exam: XR Chest Exam date and time: 03/19/2023 12:44 PM Age: 87 years old Clinical indication: Shortness of breath; Additional info: Follow up pleural effusion TECHNIQUE: Imaging protocol: Radiologic exam of the chest. Views: 1 view. COMPARISON: CR (CHEST, ) 03/16/2023 6:38 AM FINDINGS: Lungs: Unremarkable. No consolidation. Pleural spaces: Unremarkable. No pleural effusion. No pneumothorax. Heart/Mediastinum: Unremarkable. No cardiomegaly. Bones/joints: Unremarkable. XR/XR chest 1V portable [id number] IMPRESSION: No acute findings.
[2023-03-19] MEDS: cefepime 1,000 MG in sodium chloride 0.9% (plus) 50 ML 100 MG IV (14:02)
[2023-03-19] MEDS: amlodipine 5 mg Tablet PO (14:02)
--- NOTE | 2023-03-19 14:26 | ECG_ITS ---
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 Measurements Intervals [place] Rate: 88 P: 61 SC: 193 QRS: -1 QRSD: 101 T: 59 QT: 405 QTc: 492 Interpretive Statements SINUS RHYTHM POSSIBLE INFERIOR MYOCARDIAL INFARCTION , PROBABLY OLD [30 ms Q WAVE IN II/aVF] Compared to ECG 03/16/2023 05:55:37 Myocardial infarct finding now present Sinus tachycardia no longer present Left-axis deviation no longer present T-wave abnormality no longer present Electronically Signed On 03-20-2023 8:31:09 CDT by Fabián Grover M.D. [email or web address]
--- NOTE | 2023-03-19 15:47 | CTR_ITS ---
PROCEDURE INFORMATION: Exam: CT Head Without Contrast Exam date and time: 03/19/2023 5:17 PM Age: 87 years old Clinical indication: Altered mental status/memory loss; Additional info: AMS TECHNIQUE: Imaging protocol: Computed tomography of the head without contrast. Radiation optimization: All CT scans at this facility use at least one of these dose optimization techniques: automated exposure control; mA and/or kV adjustment per patient size (includes targeted exams where dose is matched to clinical indication); or iterative reconstruction. REPORTING DATA: Count of CT and Cardiac NM exams in prior 12 months: This patient has received 3 known CTs and 0 known cardiac nuclear medicine studies in the 12 months prior to the current study. COMPARISON: CT head wo con* [id number] 03/16/2023 12:51 PM RADIATION DOSE METRICS: Total DLP (mGy-cm): 1089.18 FINDINGS: Brain: Age-appropriate cerebral atrophic changes. No hemorrhage. Unremarkable white matter. No mass effect. Cerebral ventricles: There is age appropriate ventriculomegaly. Paranasal sinuses: A mucous collection is seen in the left maxillary sinus . Findings consistent with chronic sinusitis. Otherwise Visualized sinuses are unremarkable. No fluid levels. Mastoid air cells: Visualized mastoid air cells are well aerated. Bones/joints: Unremarkable. No acute fracture. Soft tissues: Unremarkable. CT/CT head wo con* [id number] IMPRESSION: 1. No acute intracranial abnormality. 2. Cerebral volume loss and. ventriculomegaly appropriate for age. 3. Mucous collection left maxillary sinus consistent with chronic sinusitis
--- NOTE | 2023-03-19 16:00 | PM.PN ---
Subjective Subjective: t max 99.9F today, patient is lethargic and obtunded again today. She is difficult to be awakened. Not following commands. Wakes up intermittently to talk a few words to daughter. She received Zyprexa 5 mg p.o. twice, once last night and once again this morning and also received a dose of Ativan which was restarted yesterday at around 4:30 PM. Through the course of the night patient has been increasingly lethargic. She is trending towards hypertension today. Preferring to keep her upper extremities flexed. Medications: Reviewed: Yes Vitals/I&O/Wt Last Vital Signs Temp 99.9 F H 03/19/23 11:44 Pulse 96 03/19/23 14:30 Resp 16 03/19/23 14:30 BP 170/80 03/19/23 11:44 Pulse Ox 93 03/19/23 14:30 O2 Del Method Nasal Cannula 03/19/23 14:30 O2 Flow Rate 2 03/19/23 14:30 03/19/23 03/19/23 03/19/23 06:59 14:59 22:59 Intake Total 300 / 860 50 / 50 Balance 300 / 860 50 / 50 Physical Exam Narrative: General: Laying in bed, lethargic, not following any commands. HEENT: PERRLA, pupils bilaterally equal and reactive, pallors not present Chest: Normal vesicular breath sounds, no added sounds, equal good air entry bilaterally CVS: S1-S2 regular, no murmurs, no tachycardia, no gallops, no rubs Abdomen: Soft, nontender, no organomegaly, bowel sounds present Neuro: Change in mentation over previous exam as above Data 03/19/23 02:13 03/19/23 02:13 Micro: Microbiology 03/18/23 12:41 C.difficile Toxin B Gene (PCR) - Final Stool A&P Assessment and plan (1) Fever: Patient presents with fever. Etiology is not completely clear. There is some concern of pulmonary infection, although only atelectasis and a very small amount of pleural fluid is seen on the left. Viral panel was negative. On 03/16, CXR showed left lower lobe pneumonia with small parapneumonic effusion. CT of the abdomen and pelvis showed gallstones without signs of cholecystitis. There are air-fluid levels in the distended stomach but otherwise no other acute abnormalities. Blood cultures have been negative UA negative Lumbar puncture was unable to be obtained by ER or by IR. Patient improved significantly after starting treatment with antibiotics and IV fluids. On March 09 8 March 18 she was alert awake, having conversations though was disoriented and needed for to be reoriented. Her last tmax was 101F on 03/16 afternoon. Thereafter remained afberile until today when she has a fever 100F again with AMS. Check CT chest to evaluate for any worsening pneumonia/empyema Recheck RVP, UA (2) CAP (community acquired pneumonia): CXr with infiltrates on left side with very small amount of pleural fluid. However clinically today appears to have right-sided crackles. Patient may have aspirated. She prefers to lay on her right side as she is currently doing. She was on ceftriaxone, levaquin and vancommycin, changed to zosyn and vancomycin now. (3) Anemia: Appears to have chronic anemia (4) Hypokalemia: We will supplement. (5) Acute kidney injury: resolved (6) Dementia with behavioral disturbance: Patient's home medications including Lyrica, olanzapine, melatonin, lorazepam had all been on hold since the day of admission. We resume Zyprexa and lorazepam as needed yesterday. She received Zyprexa 2 doses 5 mg each and also received a dose of lorazepam. Today patient is obtunded again. I suspect polypharmacy may have contributed to her changes with mental status today. Hold Zyprexa and lorazepam again. If reinstituted would start with Zyprexa 2.[address] mg p[address] daily.Recheck CT head, not moving upper extremities as she did previosuly Plan Multiple other medical problems as outlined in past medical history Allow natural Heparin subcutaneous for DVT prophylaxis Attestations Medical Necessity Statement*: low grade fever, source evaluation, mentation changed again , hld medications, repeat CT head Coding Level of Care Code Acute Code for Chg Fwd Diagnoses Fever R50.9 CAP (community acquired pneumonia) J18.9 Anemia D64.9 Hypokalemia E87.6 Acute kidney injury N17.9 Dementia with behavioral disturbance F03.91
--- NOTE | 2023-03-19 16:37 | CTR_ITS ---
PROCEDURE INFORMATION: Exam: CT Chest Without Contrast; Diagnostic Exam date and time: 03/19/2023 5:19 PM Age: 87 years old Clinical indication: Fever; Additional info: Persistent fever, source evaluation TECHNIQUE: Imaging protocol: Diagnostic computed tomography of the chest without contrast. Radiation optimization: All CT scans at this facility use at least one of these dose optimization techniques: automated exposure control; mA and/or kV adjustment per patient size (includes targeted exams where dose is matched to clinical indication); or iterative reconstruction. REPORTING DATA: Count of CT and Cardiac NM exams in prior 12 months: This patient has received 3 known CTs and 0 known cardiac nuclear medicine studies in the 12 months prior to the current study. COMPARISON: CR (CHEST, ) 03/19/2023 12:44 PM RADIATION DOSE METRICS: Total DLP (mGy-cm): 372.91 FINDINGS: Lungs: Patchy largely bibasilar atelectasis versus infiltrate. Emphysematous changes. Pleural spaces: Unremarkable. No pneumothorax. No pleural effusion. Heart: Cardiomegaly. Coronary arteries: Coronary artery atherosclerotic calcifications. Lymph nodes: Unremarkable. No enlarged lymph nodes. Vasculature: Unremarkable. No aortic aneurysm. Liver: Several left hepatic lobe cysts. Gallbladder and bile ducts: Cholelithiasis. Bones/joints: Unremarkable. No acute fracture. Soft tissues: Unremarkable. CT/CT chest wo con [id number] IMPRESSION: 1. Patchy largely bibasilar atelectasis versus infiltrate. 2. Several left hepatic lobe cysts. 3. Cholelithiasis. 4. Coronary artery atherosclerotic calcifications. 5. Cardiomegaly. 6. Emphysematous changes.
[2023-03-19] MEDS: labetalol 5 mg/mL SDV 20mL 10 MG IVP (17:36)
[2023-03-19] MEDS: lidocaine 1% 5 ML in potassium chloride premix 100 ML 26.25 ML IV (18:48)
[2023-03-19 19:33] LABS: Magnesium 1.9 mg/dL (1.7-2.3)
[2023-03-19 19:50] LABS: Potassium 3.7 mmol/L (3.5-5.1)
[2023-03-19 20:33] LABS: Adenovirus Not Detected (NOT DETECT); Chlamydia Pneumoniae Not Detected (NOT DETECT); Coronavirus 229E,HKU1,NL63,OC4 Not Detected (NOT DETECT); Human Metapneumovirus Not Detected (NOT DETECT); Human Rhinovirus/Enterovirus Not Detected (NOT DETECT); Influenza A Not Detected (NOT DETECT); Influenza A H1 Not Detected (NOT DETECT); Influenza A H1-2009 Not Detected (NOT DETECT); Influenza A H3 Not Detected (NOT DETECT); Influenza B Not Detected (NOT DETECT); Mycoplasma Pneumoniae Not Detected (NOT DETECT); Parainfluenza Virus Type 1 Not Detected (NOT DETECT); Parainfluenza Virus Type 2 Not Detected (NOT DETECT); Parainfluenza Virus Type 3 Not Detected (NOT DETECT); Parainfluenza Virus Type 4 Not Detected (NOT DETECT); Respiratory Syncytial Virus A Not Detected (NOT DETECT); Respiratory Syncytial Virus B Not Detected (NOT DETECT); SARS-COV-2 Not Detected (NOT DETECT)
[2023-03-19] MEDS: ketorolac 30 mg/mL INJ 15 MG IVP (20:43)
[2023-03-19] MEDS: lidocaine 1% 5 ML in potassium chloride premix 100 ML 52.5 ML IV (22:33)
[2023-03-20] VITALS (10 sets, daily range): BP systolic 107–172; BP diastolic 63–81; PULSE 69–102; RESP 15–20; TEMP 36.6–36.9; O2SAT 91–96
[2023-03-20] MEDS: cefepime 1,000 MG in sodium chloride 0.9% (plus) 50 ML 100 MG IV ×2 (01:29→12:10)
[2023-03-20 03:53] LABS: Vancomycin Trough 11.1 ug/mL (10-15)
[2023-03-20] MEDS: vancomycin 1,000 MG in sodium chloride 0.9% 250 ML 250 MG IV (03:58)
[2023-03-20 04:03] LABS: Magnesium 1.9 mg/dL (1.7-2.3)
--- NOTE | 2023-03-20 04:30 | PC.PHAR ---
Vancomycin Trough 11.1, high trough requested. Changed dose to 1250mg iv Q24h. Will continue to follow. Thank you, Claudette Zhong RPh
[2023-03-20] MEDS: heparin 5,000 unit/mL INJ 1 mL 5000 UNIT SUBCUT ×2 (06:09→19:48)
[2023-03-20] MEDS: acetaminophen 325 mg Tablet 650 MG PO (06:35)
[2023-03-20] MEDS: ipratropium-albuterol 3 mL Neb INHALATION ×2 (07:33→13:52)
[2023-03-20 07:50] LABS: Basophils % 0.3 %; Eosinophils # 0.1 10^3/uL (0.0-0.8); Hematocrit 33.7 % (37.0-47.0); Hemoglobin 10.7 g/dL (11.5-15.3); Lymphocytes # 2.1 10^3/uL (0.8-4.8); Lymphocytes % 35.1 %; Mean Corpuscular HGB Conc 31.8 g/dL (30.0-36.0); Mean Corpuscular Hemoglobin 28.6 pg (28.0-34.0); Mean Corpuscular Volume 90.1 fl (81-99); Mean Platelet Volume 9.2 fL (7.4-10.4); Monocytes # 0.4 10^3/uL (0.2-0.9); Monocytes % 6.4 %; Neutrophils # 3.26 10^3/uL (1.8-7.7); Neutrophils % 54.9 %; Nucleated Red Blood Cells % 0 %; Platelet Count 300 10^3/cmm (130-400); Red Blood Count 3.74 10^6/uL (4.1-5.3); Red Cell Distribution Width 14.4 % (12.1-15.1)
[2023-03-20] MEDS: duloxetine 60 mg Capsule PO (08:17)
[2023-03-20] MEDS: pantoprazole DR 40 mg Tablet PO (08:17)
[2023-03-20] MEDS: amlodipine 5 mg Tablet 10 MG PO (08:18)
[2023-03-20 08:21] LABS: Alanine Aminotransferase 11 U/L (0-33); Albumin Level 3.9 g/dL (3.5-5.2); Alkaline Phosphatase 84 U/L (35-105); Aspartate Amino Transferase 21 U/L (0-32); Blood Urea Nitrogen 27 mg/dL (8-23); Calcium 9.1 mg/dL (8.5-10.5); Carbon Dioxide 27 mmol/L (22-29); Chloride 105 mmol/L (98-107); Globulin 2.7 g/dL (1.3-4.6); Glucose 150 mg/dL (65-115); Osmolality Calculated 304 mOsm/kg (285-295); Sodium 143 mmol/L (136-145); Total Bilirubin 0.4 mg/dL (0.15-1.2); Total Protein 6.6 g/dL (6.6-8.7)
[2023-03-20] MEDS: ketorolac 30 mg/mL INJ 15 MG IVP (14:35)
--- NOTE | 2023-03-20 19:46 | PC.NURSE ---
Patients daughter Hortensia took patients fan and home medicine sent by pharmacy to [facility].
[2023-03-21 03:58] VITALS: PULSE 95; RESP 17; TEMP 36.9; O2SAT 92
[2023-03-21] MEDS: heparin 5,000 unit/mL INJ 1 mL 5000 UNIT SUBCUT (06:08)
[2023-03-21 07:25] VITALS: BP 167/97; PULSE 84; RESP 18; TEMP 36.4; O2SAT 92
[2023-03-21 08:00] VITALS: BP 167/97; PULSE 84; RESP 18; TEMP 36.4; O2SAT 92
--- NOTE | 2023-03-22 18:55 | P.DS_ITS ---
Discharge Providers Date of Admission: 03/16/23 12:52 Date of Discharge: March 22, 2023 Attending Provider at Admission: Rajinder Lazo MD Attending Provider at Discharge: Michael Pickens DO Primary Care Provider: Ben Suazo DO Diagnoses at Discharge Discharge Diagnosis (1) Fever: Status: Inactive (2) CAP (community acquired pneumonia): Status: Inactive (3) Anemia: Status: Inactive (4) Hypokalemia: Status: Inactive (5) Acute kidney injury: Status: Inactive (6) Dementia with behavioral disturbance: Status: Acute Reason for Visit Reason for Visit: Cough Hospital Course Hospital Course Patient was admitted for possible pneumonia received antibiotics and IV fluids. Patient's dementia made her hospitalization somewhat complicated. Patient is needed adjustment. Patient slowly improved over the course of a few days and was able to be discharged to longterm facility with a new baseline mental status. Physical Exam Narrative: HEENT: PERRLA, pupils bilaterally equal and reactive, pallors not present Chest: Normal vesicular breath sounds, no added sounds, equal good air entry bilaterally CVS: S1-S2 regular, no murmurs, no tachycardia, no gallops, no rubs Abdomen: Soft, nontender, no organomegaly, bowel sounds present Neuro: Lethargic Discharge Data Studies Completed and Pending Completed Studies During Hospitalization Category Date Time Status CT abdomen pelvis wo con [id number] Stat Cat Scan 03/16/23 08:[address] chest wo con [id number] Routine Cat Scan 03/19/23 16:[address] head wo con* [id number] Routine Cat Scan 03/19/23 15:[address] head wo con* [id number] Stat Cat Scan 03/16/23 12:12 Completed CXRP [XR chest 1V portable [id number]] Routine Exams 03/19/23 12:33 Completed [place] fluoroscopy [id number] Stat Exams 03/16/23 12:13 Completed XR chest 1V portable [id number] Stat Exams 03/16/23 05:49 Completed CV. echo complete* [id number] Routine Ultrasound 03/18/23 15:06 Completed Pending at discharge Category Date Time Status Blood Culture Stat Lab 03/19/23 18:45 Results Radiology Impressions Abdomen/Pelvis CT 03/16/23 08:44 IMPRESSION: 1. Stable cholelithiasis. 2. Distended stomach with air-fluid level is new from March 14, 2023. No evidence of high-grade small or large bowel obstruction. 3. No hydronephrosis in either kidney. 4. Trace LEFT pleural fluid with slight atelectasis LEFT lower lobe. 5. No other new findings Chest X-Ray 03/19/23 12:33 IMPRESSION: No acute findings. Head CT 03/19/23 15:47 IMPRESSION: 1. No acute intracranial abnormality. 2. Cerebral volume loss and. ventriculomegaly appropriate for age. 3. Mucous collection left maxillary sinus consistent with chronic sinusitis Chest CT 03/19/23 16:37 IMPRESSION: 1. Patchy largely bibasilar atelectasis versus infiltrate. 2. Several left hepatic lobe cysts. 3. Cholelithiasis. 4. Coronary artery atherosclerotic calcifications. 5. Cardiomegaly. 6. Emphysematous changes. Laboratory Results WBC 6.0 10^3/uL (4.0-10.0) 03/20/23 07:32 RBC 3.74 10^6/uL (4.1-5.3) L 03/20/23 07:32 Hgb 10.7 g/dL (11.5-15.3) L 03/20/23 07:32 Hct 33.7 % (37.0-47.0) L 03/20/23 07:32 MCV 90.1 fl (81-99) 03/20/23 07:32 MCH 28.6 pg (28.0-34.0) 03/20/23 07:32 MCHC 31.8 g/dL (30.0-36.0) 03/20/23 07:32 RDW 14.4 % (12.1-15.1) 03/20/23 07:32 Plt Count 300 10^3/cmm (130-400) 03/20/23 07:32 MPV 9.2 fL (7.4-10.4) 03/20/23 07:32 Neut % (Auto) 54.9 % 03/20/23 07:32 Lymph % (Auto) 35.1 % 03/20/23 07:32 [place] % (Auto) 6.4 % 03/20/23 07:32 Eos % (Auto) 2.0 % 03/20/23 07:32 Baso % (Auto) 0.3 % 03/20/23 07:32 Neut # (Auto) 3.26 10^3/uL (1.8-7.7) 03/20/23 07:32 Lymph # (Auto) 2.1 10^3/uL (0.8-4.8) 03/20/23 07:32 [place] # (Auto) 0.4 10^3/uL (0.2-0.9) 03/20/23 07:32 Eos # (Auto) 0.1 10^3/uL (0.0-0.8) 03/20/23 07:32 Baso # (Auto) 0.0 10^3/uL (0.0-0.1) 03/20/23 07:32 Nucleated RBC % (auto) 0 % 03/20/23 07:32 Nucleated RBCs # 0.0 /100WBC 03/20/23 07:32 Sodium 143 mmol/L (136-145) 03/20/23 07:32 Potassium 4.0 mmol/L (3.5-5.1) 03/20/23 07:32 Chloride 105 mmol/L (98-107) 03/20/23 07:32 Carbon Dioxide 27 mmol/L (22-29) 03/20/23 07:32 Anion Gap 15.0 (5-19) 03/20/23 07:32 BUN 27 mg/dL (8-23) H 03/20/23 07:32 Creatinine 1.0 mg/dL (0.5-0.9) H 03/20/23 07:32 GFR Calculation Not Reportable 03/20/23 07:32 Glucose 150 mg/dL (65-115) H 03/20/23 07:32 Calculated Osmolality 304 mOsm/kg (285-295) H 03/20/23 07:32 Lactic Acid 1.7 mmol/L (0.5-2.2) 03/16/23 06:18 Calcium 9.1 mg/dL (8.5-10.5) 03/20/23 07:32 Magnesium 1.9 mg/dL (1.7-2.3) 03/20/23 03:20 Total Bilirubin 0.4 mg/dL (0.15-1.2) 03/20/23 07:32 AST 21 U/L (0-32) 03/20/23 07:32 ALT 11 U/L (0-33) 03/20/23 07:32 Alkaline Phosphatase 84 U/L (35-105) 03/20/23 07:32 C-Reactive Protein 90.3 mg/L (0.0-4.9) H 03/16/23 05:30 NT-Pro-B Natriuret Pep 351 pg/mL (0-450) 03/16/23 05:30 Total Protein 6.6 g/dL (6.6-8.7) 03/20/23 07:32 Albumin 3.9 g/dL (3.5-5.2) 03/20/23 07:32 Globulin 2.7 g/dL (1.3-4.6) 03/20/23 07:32 TSH 4.63 uIU/mL (0.27-4.20) H 03/16/23 05:30 Urine Color Yellow (Yellow) 03/16/23 06:10 Urine Appearance Clear (CLEAR) 03/16/23 06:10 Urine pH 5 (5-7) 03/16/23 06:10 Ur Specific [place] 1.020 (1.005-1.030) 03/16/23 06:10 Urine Protein Neg (Negative) 03/16/23 06:10 Urine Glucose (UA) Norm (Normal) 03/16/23 06:10 Urine Ketones Negative (Negative) 03/16/23 06:10 Urine Blood Neg (Negative) 03/16/23 06:10 Urine Nitrate Negative (Negative) 03/16/23 06:10 Urine Bilirubin Neg (Negative) 03/16/23 06:10 Urine Urobilinogen Norm mg/dL (Negative) 03/16/23 06:10 Ur Leukocyte Esterase Negative (Negative) 03/16/23 06:10 Nasal Influ A H1 2009 PCR Not detected (NOT DETECT) 03/19/23 18:35 Vancomycin Trough 11.1 ug/mL (10-15) 03/20/23 03:20 Adenovirus (PCR) Not detected (NOT DETECT) 03/19/23 18:35 C. pneumoniae DNA (PCR) Not detected (NOT DETECT) 03/19/23 18:35 Coronavirus 229E (PCR) Not detected (NOT DETECT) 03/19/23 18:35 Human Metapneumovir PCR Not detected (NOT DETECT) 03/19/23 18:35 Influenza A (H1) PCR Not detected (NOT DETECT) 03/19/23 18:35 Influenza A (H3) PCR Not detected (NOT DETECT) 03/19/23 18:35 Influenza Type A (PCR) Not detected (NOT DETECT) 03/19/23 18:35 Influenza Type B (PCR) Not detected (NOT DETECT) 03/19/23 18:35 M. pneumoniae (PCR) Not detected (NOT DETECT) 03/19/23 18:35 Parainfluenza 1 (PCR) Not detected (NOT DETECT) 03/19/23 18:35 Parainfluenza 2 (PCR) Not detected (NOT DETECT) 03/19/23 18:35 Parainfluenza 3 (PCR) Not detected (NOT DETECT) 03/19/23 18:35 Parainfluenza 4 (PCR) Not detected (NOT DETECT) 03/19/23 18:35 RSV Type A (PCR) Not detected (NOT DETECT) 03/19/23 18:35 RSV Type B (PCR) Not detected (NOT DETECT) 03/19/23 18:35 Entero/Rhino (PCR) Not detected (NOT DETECT) 03/19/23 18:35 SARS-CoV-2 (PCR) Not detected (NOT DETECT) 03/19/23 18:35 Vitals Last Vital Signs Temp 97.6 F 03/21/23 08:00 Pulse 84 03/21/23 08:00 Resp 18 03/21/23 08:00 BP 167/97 03/21/23 08:00 Pulse Ox 92 03/21/23 08:00 O2 Del Method Room Air 03/21/23 07:25 O2 Flow Rate 1.5 03/21/23 08:00 Discharge Plan Discharge Patient Disposition: Home Condition: Stable Prescriptions: New Augmentin 500-125 mg tablet 1 tab PO BID Qty: 10 0RF Continued alfuzosin 10 mg tablet extended release 24 hr 10 mg PO BEDTIME latanoprost 0.005 % drops 1 drop ophthalmic (eye) BEDTIME acetaminophen [Tylenol Extra Strength] 500 mg tablet 500 mg PO DAILY PRN (Reason: Pain) timolol 0.5 % drops 1 drop ophthalmic (eye) BID Rx Instructions: WAIT 5 MINS BETWEEN DIFFERENT EYE DROPS pantoprazole 40 mg tablet,delayed release (DR/EC) 40 mg PO DAILY hydrochlorothiazide 25 mg tablet 25 mg PO DAILY Qty: 30 0RF (DME) wheelchair See Rx Instructions .Route .MEDSUPPLY Qty: 1 0RF Rx Instructions: As directed (DME) DEPENDS/BRIEFS See Rx Instructions .Route .MEDSUPPLY Qty: 180 3RF Rx Instructions: As directed olanzapine 5 mg tablet 5 mg PO BID Qty: 60 3RF pregabalin [Lyrica] 25 mg capsule 25 mg PO BID Qty: 60 5RF hydrocodone-acetaminophen 5-325 mg tablet 1 tab PO BID 30 Days Qty: 60 0RF duloxetine 60 mg Capsule,Delayed Release(Dr/Ec) 60 mg PO DAILY acetaminophen 325 mg Tablet 650 mg PO Q6H PRN (Reason: Pain) loperamide 2 mg Tablet 4 mg PO DAILY PRN (Reason: Diarrhea) Rx Instructions: administer after each loose stool until symptoms controlled; do not exceed 8 mg per 24 hrs magnesium hydroxide [Milk of Magnesia] 400 mg/5 mL Suspension 30 ml PO DAILY PRN (Reason: Constipation) bisacodyl 10 mg Suppository 10 mg IA DAILY PRN (Reason: Constipation) alum-mag hydroxide-simeth 200-200-20 mg/5 mL Suspension 30 ml PO Q4H PRN (Reason: Heartburn) Rx Instructions: administer between meals melatonin 5 mg Tablet 5 mg PO BEDTIME camphor-menthol 0.2-3.5 % Gel 1 applic TOPICAL DAILY PRN (Reason: Pain) Rx Instructions: rub in gently and completely dicyclomine 20 mg tablet 20 mg PO TID PRN (Reason: Abdominal pain/colon spasm) Qty: 30 0RF lorazepam 0.5 mg tablet 0.25 mg PO TID Discontinued cefdinir 300 mg capsule 300 mg PO BID 7 Days Qty: 14 0RF azithromycin [Zithromax Z-Jr] 250 mg tablet See Rx Instructions PO .COMPLEX Qty: 6 0RF Rx Instructions: take 500 mg today (day 1), then 250 mg for 4 days (days 2-5) PO Discharge Orders: Discharge Order (Routine); Ordered 03/20/23 Ordered By: Michael Pickens Referrals: Ben Suazo DO [Primary Care Provider] - Discharge Diet: Usual diet Discharge Activity: Increase activity as tolerated Patient Instructions: Opioid Safety Discharge Attestations Time Spent in Discharge Care*: less than 30 min Quality Metrics Clinical Quality Measures [ No reported AMI, CVA or VTE this stay] Coding Level of Care Code Acute Code for Chg Fwd Diagnoses Fever R50.9 CAP (community acquired pneumonia) J18.9 Anemia D64.9 Hypokalemia E87.6 Acute kidney injury N17.9 Dementia with behavioral disturbance F03.91
== END 2023-03-21 08:00 | disposition home or self-care (01) | DRG 194 ==
LOC: ER 06:52 → MEDSURG 13:22
PROVIDERS: Emergency Medicine; Student in an Organized Health Care Education/Training Program; Admitting Provider Internal Medicine; Emergency Provider Family Medicine; PCP Family Medicine; Visit Provider Internal Medicine
DX: J18.9 Pneumonia, unspecified organism (principal); F02.818 Dementia in other diseases classified elsewhere, unspecified severity, with other behavioral disturbance; N17.9 Acute kidney failure, unspecified; G93.40 Encephalopathy, unspecified; D64.9 Anemia, unspecified; E87.6 Hypokalemia; G30.9 Alzheimer's disease, unspecified; Z79.891 Long term (current) use of opiate analgesic; F41.1 Generalized anxiety disorder; K21.9 Gastro-esophageal reflux disease without esophagitis; I10 Essential (primary) hypertension; M19.90 Unspecified osteoarthritis, unspecified site; Z88.0 Allergy status to penicillin; T50.915A Adverse effect of multiple unspecified drugs, medicaments and biological substances, initial encounter; Z66 Do not resuscitate
CPT/HCPCS: 36415; 62270; 62328; 70450; 71045; 71250; 74176; 74177; 76000; 80053; 80202; 81003; 83605; 83735; 83880; 84132; 84443; 85025; 86140; 87040; 87086; 87486; 87493; 87581; 87633; 87641; 92507; 92523; 92526; 92610; 93005; 93306; 94640; 94760; 96361; 96365; 96372; 96374; 99285; J0360; J0692; J0696; J1644; J1885; J1956; J3370; J3480; J3490; J7030; J7050; J7613; Q9967

== ENCOUNTER 2023-05-18 08:51 | Outpatient (CLI) | payer MEDICARE, OTHER, SELFPAY ==
[2023-05-18 09:02] LABS: Add Urine Microscopic? NO; Charge for UA Resulting for Rev
[2023-05-18 09:22] LABS: Bilirubin Urine Neg (Negative); Blood Urine Neg (Negative); Glucose Urine UA Norm (Normal); Ketones Urine Negative (Negative); Leukocyte Esterase Urine Negative (Negative); Nitrate Urine Negative (Negative); Protein Urine Neg (Negative); Urine Appearance Clear (CLEAR); Urine Color Yellow (Yellow); Urobilinogen Urine Norm (Negative); pH Urine 5 (5-7)
== END 2023-05-18 08:52 | disposition home or self-care (01) ==
PROVIDERS: PCP Family Medicine; Visit Provider Family Medicine
DX: Z01.89 Encounter for other specified special examinations (principal)
CPT/HCPCS: 81003; 87077; 87086; 87186

== ENCOUNTER 2023-06-02 18:38 | Outpatient (CLI) | payer MEDICARE, OTHER, SELFPAY ==
[2023-06-02 18:43] LABS: Add Urine Microscopic? NO; Charge for UA Resulting for Rev
[2023-06-02 19:00] LABS: Bilirubin Urine Neg (Negative); Blood Urine Neg (Negative); Glucose Urine UA Norm (Normal); Ketones Urine Negative (Negative); Leukocyte Esterase Urine Negative (Negative); Nitrate Urine Negative (Negative); Protein Urine Neg (Negative); Urine Appearance Clear (CLEAR); Urine Color Yellow (Yellow); Urobilinogen Urine Neg (Negative); pH Urine 7 (5-7)
== END 2023-06-02 18:39 | disposition home or self-care (01) ==
PROVIDERS: PCP Family Medicine; Visit Provider Family Medicine
DX: N39.0 Urinary tract infection, site not specified (principal)
CPT/HCPCS: 81003; 87077; 87086; 87186

== ENCOUNTER 2023-06-28 12:41 | Outpatient (CLI) | payer MEDICARE, OTHER, SELFPAY ==
[2023-06-28 12:47] LABS: Add Urine Microscopic? NO; Charge for UA Resulting for Rev
[2023-06-28 13:06] LABS: Bilirubin Urine Neg (Negative); Blood Urine Neg (Negative); Glucose Urine UA Norm (Normal); Ketones Urine 1+ (Negative); Leukocyte Esterase Urine Negative (Negative); Nitrate Urine Negative (Negative); Protein Urine Neg (Negative); Specific Gravity, Urine 1.015 (1.005-1.030); Urine Appearance Clear (CLEAR); Urine Color Yellow (Yellow); Urobilinogen Urine Norm (Negative); pH Urine 7 (5-7)
== END 2023-06-28 12:42 | disposition home or self-care (01) ==
LOC: LAB 12:44
PROVIDERS: PCP Family Medicine; Visit Provider Family Medicine
DX: Z01.89 Encounter for other specified special examinations (principal)
CPT/HCPCS: 81003; 87086

== ENCOUNTER 2023-07-02 20:31 | Emergency (ER) | payer MEDICARE, OTHER, SELFPAY ==
[2023-07-02 20:33] VITALS: BP 157/84; PULSE 97; RESP 18; TEMP 36.6; O2SAT 92; BMI 24.1
--- NOTE | 2023-07-02 20:50 | XRR_ITS ---
PROCEDURE INFORMATION: Exam: XR Chest Exam date and time: 07/02/2023 9:04 PM Age: 87 years old Clinical indication: Patient HX: Chest congestion; AMS TECHNIQUE: Imaging protocol: Radiologic exam of the chest. Views: 1 view. COMPARISON: CT chest con [id number] 03/19/2023 5:19 PM FINDINGS: Lungs: Unremarkable. No consolidation. Pleural spaces: Unremarkable. No pleural effusion. No pneumothorax. Heart/Mediastinum: Unremarkable. No cardiomegaly. Bones/joints: Unremarkable. XR/XR chest 1V portable [id number] IMPRESSION: No acute findings.
--- NOTE | 2023-07-02 20:50 | CTR_ITS ---
PROCEDURE INFORMATION: Exam: CT Head Without Contrast Exam date and time: 07/02/2023 9:32 PM Age: 87 years old Clinical indication: Altered mental status/memory loss; Confusion or disorientation; Patient HX: EMS arrival from [facility] for AMS. Patient awake and verbalizing in nonsensical phrases. History of alzheimer's. TECHNIQUE: Imaging protocol: Computed tomography of the head without contrast. Radiation optimization: All CT scans at this facility use at least one of these dose optimization techniques: automated exposure control; mA and/or kV adjustment per patient size (includes targeted exams where dose is matched to clinical indication); or iterative reconstruction. REPORTING DATA: Count of CT and Cardiac NM exams in prior 12 months: This patient has received 5 known CTs and 0 known cardiac nuclear medicine studies in the 12 months prior to the current study. COMPARISON: CT head wo con* [id number] 03/19/2023 5:17 PM RADIATION DOSE METRICS: Total DLP (mGy-cm): 1071.26 FINDINGS: Brain: There is diffuse cerebral atrophy present, consistent with this patient's age. Periventricular and subcortical white matter low densities are present which at this age likely represent microvascular ischemic change. Benign globus pallidus calcifications are present. No evidence for large acute ischemic infarction. Please note acute ischemia can be occult by head CT. No evidence for acute intracranial hemorrhage. Cerebral ventricles: No ventriculomegaly. Paranasal sinuses: There is mucous retention cyst versus polyp in the left maxillary sinus. Mastoid air cells: Visualized mastoid air cells are well aerated. Bones/joints: Unremarkable. No acute fracture. Soft tissues: Unremarkable. CT/CT head wo con* [id number] IMPRESSION: There are senescent changes of the brain as described above. No evidence for large acute ischemic infarction or acute intracranial injury.
--- NOTE | 2023-07-02 20:51 | ECG_ITS ---
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 Measurements Intervals [place] Rate: 70 P: 45 [place]: 193 QRS: -10 QRSD: 86 T: 62 QT: 398 QTc: 430 Interpretive Statements SINUS RHYTHM POSSIBLE RIGHT VENTRICULAR CONDUCTION DELAY [RSR (QR) IN V1/V2] Compared to ECG 03/19/2023 14:26:49 Myocardial infarct finding no longer present Electronically Signed On 07-03-2023 8:09:23 [employer]ER REPA[employer] by Veronica Damian M.D. [id number]
[2023-07-02 21:00] VITALS: BP 157/84; PULSE 77; RESP 24; O2SAT 94
[2023-07-02 21:03] LABS: Basophils % 0.2 %; Eosinophils # 0.3 10^3/uL (0.0-0.8); Eosinophils % 5.5 %; Hematocrit 35.5 % (36-47); Lymphocytes # 2.5 10^3/uL (0.8-4.8); Lymphocytes % 53.6 %; Mean Corpuscular Hemoglobin 28.9 pg (27-33); Mean Corpuscular Volume 93.4 fl (85-98); Monocytes # 0.4 10^3/uL (0.2-0.9); Monocytes % 8.2 %; Neutrophils # 1.52 10^3/uL (1.8-7.7); Neutrophils % 32.1 %; Nucleated Red Blood Cells % 0 %; Platelet Count 254 10^3/cmm (157-399); Red Cell Distribution Width 13.9 % (12.1-15.1); White Blood Count 4.74 10^3/uL (3.29-11.43)
[2023-07-02] MEDS: sodium chloride 0.9% 1,000 ML 999 ML IV (21:15)
[2023-07-02 21:18] LABS: Lactic Sepsis W/Reflex 1.1 mmol/L (0.5-2.2)
[2023-07-02 21:19] LABS: ABG PCO2 54.3 mmHg (35-45); ABG PH Result 7.38 (7.35-7.45); Arterial Blood Gas Hematocrit 34.8 % (37-47); Base Excess ABG 5.3 mmol/L (-2.0-2.0); Blood Gas Allen Test Pos; Blood Gas Sample Site Radial, right; Blood Gas Sample Type Arterial; HCO3 ABG 31.7 mmol/L (22-26); Oxygen Device NC; PO2 ABG 69.8 mmHg (80.0-100.0)
[2023-07-02 21:29] LABS: Alanine Aminotransferase < 5 U/L (0-33); Albumin Level 4.3 g/dL (3.5-5.2); Alkaline Phosphatase 114 U/L (35-105); Blood Urea Nitrogen 22 mg/dL (8-23); C Reactive Protein 10.7 mg/L (0.0-4.9); Calcium 9.5 mg/dL (8.5-10.5); Carbon Dioxide 34 mmol/L (22-29); Chloride 102 mmol/L (98-107); Globulin 3.1 g/dL (1.3-4.6); Glucose 102 mg/dL (65-115); Magnesium 2.1 mg/dL (1.7-2.3); NT Pro B Type Natriuretic Pept 36 pg/mL (0-450); Osmolality Calculated 300 mOsm/kg (285-295); Sodium 143 mmol/L (136-145); Total Bilirubin 0.4 mg/dL (0.15-1.2); Total Protein 7.4 g/dL (6.6-8.7)
[2023-07-02 21:30] LABS: Aspartate Amino Transferase 19 U/L (0-32)
[2023-07-02 21:36] LABS: Add Urine Microscopic? NO; Charge for UA Resulting for Rev
[2023-07-02 21:40] LABS: Bilirubin Urine Neg (Negative); Blood Urine Neg (Negative); Glucose Urine UA Norm (Normal); Ketones Urine 1+ (Negative); Leukocyte Esterase Urine Negative (Negative); Nitrate Urine Negative (Negative); Protein Urine Neg (Negative); Urine Appearance Clear (CLEAR); Urine Color Colorless (Yellow); Urobilinogen Urine Neg (Negative); pH Urine 5 (5-7)
[2023-07-02 21:58] VITALS: BP 135/72; PULSE 76; RESP 22; O2SAT 97
[2023-07-02 22:04] VITALS: BP 121/61; PULSE 107; RESP 15; O2SAT 95
--- NOTE | 2023-07-02 22:31 | W.ED.AMS ---
HPI - Altered Mental Status General: Chief Complaint: Altered Mental Status Stated Complaint: AMS Time Seen by Provider: 07/02/23 20:42 History of Present Illness: 87-year-old female detention patient with a history of dementia presenting with decreased mental status. Evidently, she was found by EMS to have a low oxygen saturation. She is not usually on oxygen. She arrives on 5 L with an increase in her mental status from presentation. No history of fever. No history of cough per EMS. She was recently placed on clonazepam twice daily. Review of Systems General: Reports: ROS unobtainable due to mental status Const: Denies: fever(s) Card: Denies: chest pain or palpitations Resp: Denies: productive cough PFSH ED PFSH: Medical History Acute kidney injury Anemia CAP (community acquired pneumonia) Dementia with behavioral disturbance Fever DEWAYNE (generalized anxiety disorder) GERD (gastroesophageal reflux disease) HTN (hypertension) Hypokalemia Osteoarthritis Surgical History H/O cataract extraction Bilateral - Dr Casas H/O neck surgery H/O shoulder surgery 2011 Dr Live in [place] History of colonoscopy 2011 - normal per patient History of hysterectomy Hx of tonsillectomy Family History Mother Dementia Father Cancer Lymphoma Brother Diabetes Social History Smoking and tobacco/nicotine status: never used tobacco/nicotine Alcohol intake: never Physical Exam Const: GENERAL APPEARANCE: cooperative and frail appearing HENMT: COMMON NORMALS: normocephalic, atraumatic and Normal external nose present HEAD & SCALP: normocephalic and atraumatic NOSE: Normal external nose present MOUTH: Abnormal oral and palatal mucosa present (Dry) Eye: COMMON NORMALS: Equal, round and reactive pupils present and EOMs intact bilaterally PUPIL: Yes Equal, round and reactive pupils present Chest: CHEST: Yes Symmetrical chest wall rise Resp: COMMON NORMALS: normal respiratory effort and clear to auscultation bilaterally EFFORT & INSPECTION: Yes symmetric chest movement AUSCULTATION: clear to auscultation bilaterally Cardio: COMMON NORMALS: regular rate and regular rhythm RATE: regular rate RHYTHM: regular rhythm GI: COMMON NORMALS: Normal to inspection, nondistended, normoactive bowel sounds present Neuro: ALBERTINA COMA SCALE: document GCS findings Albertina coma scale eye opening: To sound Albertina coma scale verbal response: Words Alpine coma scale motor response: Obey commands Alpine coma scale total score: 12 Course Vital Signs: Vital signs: Vital Signs Temperature 97.9 F 07/02/23 20:33 Pulse Rate 75 07/02/23 23:31 Respiratory Rate 18 07/02/23 23:31 Blood Pressure 109/81 07/02/23 23:31 Pulse Oximetry 93 07/02/23 23:31 Oxygen Delivery Me thod Room Air 07/02/23 22:37 Oxygen Flow Rate 2 07/02/23 21:58 MDM - Altered Mental Status Medical Decision Making Patient has had a slow and steady increase in mental status since presentation. Saturations are 92 to 94% on room air currently. Heart rate is down to 67. Blood pressure is 148 systolic. Hemoglobin is 11. White blood cell count is 4.7. Creatinine is 1. Chest x-ray is nonacute. Head CT shows senescent changes without any acute disease. Lactic is 1.1. pH is 7.38 with PCO2 of 54 on presentation. CRP is 11. Urinalysis is normal. With improvement in her symptoms, and no other cause, Should be considered that benzodiazepines are a contributing factor. We will discontinue these for now. We will place her back on her original dose of lorazepam starting tomorrow evening to give her a chance to clear the clonazepam, and have her follow-up. To return for any worsening symptoms. Lab Data 07/02/23 20:54 07/02/23 20:54 Radiology Impressions Chest X-Ray 07/02/23 20:50 IMPRESSION: No acute findings. Head CT 07/02/23 20:50 IMPRESSION: There are senescent changes of the brain as described above. No evidence for large acute ischemic infarction or acute intracranial injury. Laboratory Results WBC 4.74 10^3/uL (3.29-11.43) 07/02/23 20:54 RBC 3.80 10^6/uL (3.85-5.65) L 07/02/23 20:54 Hgb 11.00 g/dL (11.27-16.99) L 07/02/23 20:54 Hct 35.5 % (36-47) L 07/02/23 20:54 MCV 93.4 fl (85-98) 07/02/23 20:54 MCH 28.9 pg (27-33) 07/02/23 20:54 MCHC 31.0 g/dL (30-55) 07/02/23 20:54 RDW 13.9 % (12.1-15.1) 07/02/23 20:54 Plt Count 254 10^3/cmm (157-399) 07/02/23 20:54 MPV 10.0 fL (7.4-10.4) 07/02/23 20:54 Neut % (Auto) 32.1 % 07/02/23 20:54 Lymph % (Auto) 53.6 % 07/02/23 20:54 [place] % (Auto) 8.2 % 07/02/23 20:54 Eos % (Auto) 5.5 % 07/02/23 20:54 Baso % (Auto) 0.2 % 07/02/23 20:54 Neut # (Auto) 1.52 10^3/uL (1.8-7.7) L 07/02/23 20:54 Lymph # (Auto) 2.5 10^3/uL (0.8-4.8) 07/02/23 20:54 [place] # (Auto) 0.4 10^3/uL (0.2-0.9) 07/02/23 20:54 Eos # (Auto) 0.3 10^3/uL (0.0-0.8) 07/02/23 20:54 Baso # (Auto) 0.0 10^3/uL (0.0-0.1) 07/02/23 20:54 Nucleated RBC % (auto) 0 % 07/02/23 20:54 Nucleated RBCs # 0.0 /100WBC 07/02/23 20:54 Specimen Type Arterial 07/02/23 21:09 Sample Site Radial, right 07/02/23 21:09 ABG pH 7.38 (7.35-7.45) 07/02/23 21:09 ABG pCO2 54.3 mmHg (35-45) H 07/02/23 21:09 ABG pO2 69.8 mmHg (80.0-100.0) L 07/02/23 21:09 ABG HCO3 31.7 mmol/L (22-26) H 07/02/23 21:09 ABG Base Excess 5.3 mmol/L (-2.0-2.0) H 07/02/23 21:09 Dieter Test Pos 07/02/23 21:09 Hematocrit 34.8 % (37-47) L 07/02/23 21:09 O2 Delivery Device Nc 07/02/23 21:09 O2 Liters/Min 2.0 % 07/02/23 21:09 Meat And Poultry Inspector ID [email or web address] 07/02/23 21:09 Sodium 143 mmol/L (136-145) 07/02/23 20:54 Potassium 4.0 mmol/L (3.5-5.1) 07/02/23 20:54 Chloride 102 mmol/L (98-107) 07/02/23 20:54 Carbon Dioxide 34 mmol/L (22-29) H 07/02/23 20:54 Anion Gap 11.0 (5-19) 07/02/23 20:54 BUN 22 mg/dL (8-23) 07/02/23 20:54 Creatinine 1.0 mg/dL (0.5-0.9) H 07/02/23 20:54 GFR Calculation Not Reportable 07/02/23 20:54 Glucose 102 mg/dL (65-115) 07/02/23 20:54 Calculated Osmolality 300 mOsm/kg (285-295) H 07/02/23 20:54 Lactic Acid 1.1 mmol/L (0.5-2.2) 07/02/23 20:54 Calcium 9.5 mg/dL (8.5-10.5) 07/02/23 20:54 Magnesium 2.1 mg/dL (1.7-2.3) 07/02/23 20:54 Total Bilirubin 0.4 mg/dL (0.15-1.2) 07/02/23 20:54 AST 19 U/L (0-32) 07/02/23 20:54 ALT < 5 U/L (0-33) 07/02/23 20:54 Alkaline Phosphatase 114 U/L (35-105) H 07/02/23 20:54 C-Reactive Protein 10.7 mg/L (0.0-4.9) H 07/02/23 20:54 NT-Pro-B Natriuret Pep 36 pg/mL (0-450) 07/02/23 20:54 Total Protein 7.4 g/dL (6.6-8.7) 07/02/23 20:54 Albumin 4.3 g/dL (3.5-5.2) 07/02/23 20:54 Globulin 3.1 g/dL (1.3-4.6) 07/02/23 20:54 Urine Color Colorless (Yellow) 07/02/23 21:11 Urine Appearance Clear (CLEAR) 07/02/23 21:11 Urine pH 5 (5-7) 07/02/23 21:11 Ur Specific [place] 1.010 (1.005-1.030) 07/02/23 21:11 Urine Protein Neg (Negative) 07/02/23 21:11 Urine Glucose (UA) Norm (Normal) 07/02/23 21:11 Urine Ketones 1+ (Negative) H 07/02/23 21:11 Urine Blood Neg (Negative) 07/02/23 21:11 Urine Nitrate Negative (Negative) 07/02/23 21:11 Urine Bilirubin Neg (Negative) 07/02/23 21:11 Urine Urobilinogen Neg mg/dL (Negative) 07/02/23 21:11 Ur Leukocyte Esterase Negative (Negative) 07/02/23 21:11 All radiology interpretation(s) finalized by discharge Discharge Plan Discharge Patient Disposition: Home Clinical Impression: Altered mental status, Hypoxia, Benzodiazepine toxicity Condition: Stable Prescriptions: New lorazepam 0.5 mg tablet 0.5 mg PO BID PRN (Reason: agitation) Qty: 30 0RF No Action alfuzosin 10 mg tablet extended release 24 hr 10 mg PO BEDTIME latanoprost 0.005 % drops 1 drop ophthalmic (eye) BEDTIME acetaminophen [Tylenol Extra Strength] 500 mg tablet 500 mg PO DAILY PRN (Reason: Pain) timolol 0.5 % drops 1 drop ophthalmic (eye) BID Rx Instructions: WAIT 5 MINS BETWEEN DIFFERENT EYE DROPS pantoprazole 40 mg tablet,delayed release (DR/EC) 40 mg PO DAILY hydrochlorothiazide 25 mg tablet 25 mg PO DAILY Qty: 30 0RF ivermectin 3 mg tablet 12,000 mcg PO Q10D Qty: 8 0RF (DME) DEPENDS/BRIEFS See Rx Instructions .Route .MEDSUPPLY Qty: 180 3RF Rx Instructions: As directed olanzapine 5 mg tablet 5 mg PO BID Qty: 60 3RF (DME) wheelchair See Rx Instructions .Route .MEDSUPPLY Qty: 1 0RF Rx Instructions: Please issue new wheelchair. fentanyl 12 mcg/hr patch 72 hour 1 patch transdermal Q72H 30 Days Qty: 10 0RF hydrocodone-acetaminophen 5-325 mg tablet 1 tab PO BID 30 Days Qty: 60 0RF pregabalin 50 mg capsule 50 mg PO BID Qty: 60 5RF clonazepam 1 mg tablet 1 mg PO BID Qty: 60 5RF duloxetine 60 mg Capsule,Delayed Release(Dr/Ec) 60 mg PO DAILY acetaminophen 325 mg Tablet 650 mg PO Q6H PRN (Reason: Pain) loperamide 2 mg Tablet 4 mg PO DAILY PRN (Reason: Diarrhea) Rx Instructions: administer after each loose stool until symptoms controlled; do not exceed 8 mg per 24 hrs magnesium hydroxide [Milk of Magnesia] 400 mg/5 mL Suspension 30 ml PO DAILY PRN (Reason: Constipation) bisacodyl 10 mg Suppository 10 mg [place] DAILY PRN (Reason: Constipation) alum-mag hydroxide-simeth 200-200-20 mg/5 mL Suspension 30 ml PO Q4H PRN (Reason: Heartburn) Rx Instructions: administer between meals melatonin 5 mg Tablet 5 mg PO BEDTIME camphor-menthol 0.2-3.5 % Gel 1 applic TOPICAL DAILY PRN (Reason: Pain) Rx Instructions: rub in gently and completely dicyclomine 20 mg tablet 20 mg PO TID PRN (Reason: Abdominal pain/colon spasm) Qty: 30 0RF Discharge Orders: Discharge ED (Routine); Ordered 07/02/23 Ordered By: Kali Torres Referrals: Ben Suazo DO [Primary Care Provider] - 1-3 days Patient Instructions: Altered Mental Status (ED) Activity Restrictions/Additional Instructions: Hold all benzodiazepines (clonazepam and lorazepam) for 24 hours. Discontinue use of clonazepam. May begin lorazepam at prescribed dosage tomorrow night. Return for any problems. Follow-up with your doctor. Coding Level of Care Code ED Manager Of Business Operations for Gavi Alan
[2023-07-02 22:37] VITALS: BP 148/101; PULSE 71; RESP 14; O2SAT 92
[2023-07-02 23:31] VITALS: BP 109/81; PULSE 75; RESP 18; O2SAT 93
== END 2023-07-02 23:34 | disposition home or self-care (01) ==
PROVIDERS: Emergency Provider Emergency Medicine; PCP Family Medicine
DX: R41.82 Altered mental status, unspecified (principal); R09.02 Hypoxemia; T88.7XXA Unspecified adverse effect of drug or medicament, initial encounter; T42.4X5A Adverse effect of benzodiazepines, initial encounter; F03.90 Unspecified dementia, unspecified severity, without behavioral disturbance, psychotic disturbance, mood disturbance, and anxiety; I10 Essential (primary) hypertension
CPT/HCPCS: 36415; 36600; 70450; 71045; 80053; 81003; 82803; 83605; 83735; 83880; 85025; 86140; 93005; 96360; 96366; 99285; J7030

== ENCOUNTER 2023-07-26 17:47 | Emergency (ER) | payer OTHER, SELFPAY ==
[2023-07-26 17:48] VITALS: BP 136/77; PULSE 80; RESP 16; TEMP 37.1; O2SAT 95; BMI 26.6
--- NOTE | 2023-07-26 17:57 | CTR_ITS ---
PROCEDURE INFORMATION: Exam: CT Cervical Spine Without Contrast Exam date and time: 07/26/2023 6:47 PM Age: 87 years old Clinical indication: Injury or trauma; Fall; Blunt trauma; Additional info: Fall/ trauma TECHNIQUE: Imaging protocol: Computed tomography of the cervical spine without contrast. Radiation optimization: All CT scans at this facility use at least one of these dose optimization techniques: automated exposure control; mA and/or kV adjustment per patient size (includes targeted exams where dose is matched to clinical indication); or iterative reconstruction. REPORTING DATA: Count of CT and Cardiac NM exams in prior 12 months: This patient has received 6 known CTs and 0 known cardiac nuclear medicine studies in the 12 months prior to the current study. COMPARISON: CT cervical spin wo con* [id number] 02/23/2022 7:27 PM RADIATION DOSE METRICS: Total DLP (mGy-cm): 174 FINDINGS: Bones/joints: No acute fracture. Normal alignment. No significant disc bulge or herniation. No severe spinal canal stenosis. Lungs: Lung apices are normal. Soft tissues: Unremarkable. CT/CT cervical spin wo con* [id number] IMPRESSION: No acute findings.
--- NOTE | 2023-07-26 17:57 | CTR_ITS ---
PROCEDURE INFORMATION: Exam: CT Head Without Contrast Exam date and time: 07/26/2023 6:47 PM Age: 87 years old Clinical indication: Injury or trauma; Fall; Blunt trauma (contusions or hematomas); Additional info: Fall/trauma TECHNIQUE: Imaging protocol: Computed tomography of the head without contrast. Radiation optimization: All CT scans at this facility use at least one of these dose optimization techniques: automated exposure control; mA and/or kV adjustment per patient size (includes targeted exams where dose is matched to clinical indication); or iterative reconstruction. REPORTING DATA: Count of CT and Cardiac NM exams in prior 12 months: This patient has received 6 known CTs and 0 known cardiac nuclear medicine studies in the 12 months prior to the current study. COMPARISON: CT head wo con* [id number] 07/02/2023 9:32 PM RADIATION DOSE METRICS: Total DLP (mGy-cm): 1141 FINDINGS: Brain: No hemorrhage. No edema. Advanced diffuse cerebral atrophy and mild sequela of chronic small vessel ischemic disease. No mass effect. Cerebral ventricles: No ventriculomegaly. Paranasal sinuses: Visualized sinuses are unremarkable. No fluid levels. Mastoid air cells: Visualized mastoid air cells are well aerated. Bones/joints: Unremarkable. No acute fracture. Soft tissues: Right frontal scalp laceration. CT/CT head wo con* [id number] IMPRESSION: No acute intracranial abnormality.
--- NOTE | 2023-07-26 17:59 | W.ED.HEATRA ---
HPI - Head Injury General: Chief complaint: Head Injury Stated complaint: Lac RT Eye Time Seen by Provider: 07/26/23 17:56 History of Present Illness: 87-year-old female presents emergency department via EMS from her [facility]. EMS states that the medical staff at the facility provided the patient hydrocodone and Ativan and then the patient fell out of a wheelchair and hit her right forehead area on the ground causing her to have a significant laceration. The patient does appear to be slightly sedated I suspect most likely this is from the Ativan and hydrocodone. Review of Systems General: Reports: ROS unobtainable due to medical condition and ROS unobtainable due to mental status [facility] ED PFSH: Medical History Acute kidney injury Anemia CAP (community acquired pneumonia) Dementia with behavioral disturbance Fever DEWAYNE (generalized anxiety disorder) GERD (gastroesophageal reflux disease) HTN (hypertension) Hypokalemia Osteoarthritis Surgical History H/O cataract extraction Bilateral - Dr Casas H/O neck surgery H/O shoulder surgery 2011 Dr Live in [place] History of colonoscopy 2011 - normal per patient History of hysterectomy Hx of tonsillectomy Family History Mother Dementia Father Cancer Lymphoma Brother Diabetes Social History Smoking and tobacco/nicotine status: never used tobacco/nicotine Alcohol intake: never Physical Exam Narrative: EXAM NARRATIVE: Constitutional: the patient appears well nourished and of normal development. Vital signs as documented. No acute distress at present. Alert To verbal stimulation. The patient does appear to be sedated from the hydrocodone and Ativan that was given to the patient by the [facility] facility prior to her fall.. Head, eyes, ears, nose, mouth, throat: Normocephalic, atraumatic. Pupils-equal, round, reactive to light. No scleral icterus. Normal-appearing external ears. Normal appearing nasal turbinates, no drainage. No obvious oral lesions, posterior oropharynx without erythema or exudates. Neck: Supple, trachea is midline, no lymphadenopathy, no jugular venous distension, thyromegaly, or carotid bruits. Carotid upstrokes are brisk bilaterally. Lungs: clear to auscultation to all lung foster. Symmetrical rise and fall of chest, no obvious signs of increased work of breathing at present. Cardiac: Regular rate and rhythm, positive S1, S2. No murmurs, rubs or gallops that I can appreciate Abdomen: Soft, non-tender to palpation, normal active bowel sounds to all quadrants. No palpable masses, no organomegaly and abdominal bruits. Extremities: 2+ pulses in the upper extremities that are equal bilaterally, 2+ pulses in the lower extremities that are equal bilaterally. Non-edematous. Moves all extremities well, sensation to all extremities are noted. Skin: Warm, dry, intact. 4 cm in length by 0.25 mm depth laceration to the right supraorbital area. Neurological: Arousable to verbal stimuli, sedated/lethargic secondary to medication ministration from the long-term care facility. She does have a history of dementia. Given that she was provided Ativan and hydrocodone by the long-term care facility prior to her fall the sedating effects of this medication significantly limits a complete and thorough neurological examination. Procedures Laceration Laceration 1: Site: face Side (If applicable): right Size (cm): 4 Description: linear Depth: simple, single layer Local Anesthetic: lidocaine 2% and with epi Amount of anesthesia used (mL): 5 Pre-repair: wound explored and irrigated extensively Skin layer closed with: nylon (5-0) Size (cm): 5-0 Number of sutures: 4 Technique: simple, interrupted Course ED course: Laceration Repair: The patient verbally consents to a wound repair. A time out was performed. Side and sight are verified. Patient identification is verified. The wound is anesthetized with- 5ml of 1% Lidocaine with epinephrine It is then copiously irrigated with sterile saline and cleansed with saline and betadine mixture. The wound measures [4 cm length x 0.25mm depth-]. It is approximated using simple interrupted sutures with [-5-0-] Ethilon. Total number [-4 ]. Good approximation is achieved. Hemostasis is maintained. It is dressed with antibiotic ointment and a bulky dressing. Follow-up instructions were provided to the patient. The patient was educated on the signs of infection and return precautions. The patient was advised to follow-up with a medical provider in 7-10 days to have the wound evaluated for possible suture removal. Vital Signs: Vital signs: Vital Signs Temperature 98.7 F 07/26/23 17:48 Pulse Rate 84 07/26/23 20:22 Respiratory Rate 20 H 07/26/23 20:22 Blood Pressure 146/75 07/26/23 20:22 Pulse Oximetry 99 07/26/23 20:22 Oxygen Delivery Me thod Room Air 07/26/23 17:48 MDM - Head Injury Medcial Decision Making Physical exam completed and documented, I will provide the patient with a CT scan of her head and CT cervical spine to evaluate for intracranial injury. Given her increased sedation most likely secondary from her Ativan and hydrocodone administration by the long-term care facility I will monitor her here in the emergency department and provide her laceration repair to her right supraorbital area. Medical Records I reviewed the patient's medical records. Lab Data Radiology Impressions Cervical Spine CT 07/26/23 17:57 IMPRESSION: No acute findings. Head CT 07/26/23 17:57 IMPRESSION: No acute intracranial abnormality. All radiology interpretation(s) finalized by discharge Discharge Plan Discharge Patient Disposition: [facility] Clinical Impression: Accidental fall from chair Qualifiers: Encounter type: initial encounter Qualified Code(s): W07.XXXA - Fall from chair, initial encounter Laceration of face Qualifiers: Encounter type: initial encounter Qualified Code(s): S01.81XA - Laceration without foreign body of other part of head, initial encounter Condition: Stable Discharge Orders: Discharge ED (Routine); Ordered 07/26/23 Ordered By: Ion Castellano Referrals: Ben Suazo, [Primary Care Provider] - Discharge Diet: Advance as tolerated Discharge Activity: Resume usual activity Activity Restrictions/Additional Instructions: Activity Restrictions/Additional Instructions: Thank you for choosing [facility] for your healthcare needs today. Please realize that you were seen in the Emergency Department and that we are providing you with an emergency medical screening exam and this may not be a complete and all inclusive of all the testing and or medical work-up that you may need to determine your ailment or severity of your illness. It is very important that you follow-up as instructed with your Primary care provider or Specialist for additional evaluation and to discuss your medical treatment plan. You may return to the Emergency Department should you have concerns or if your condition changes or worsens in any way. Coding Level of Care Code ED Hockey Instructor for Gavi Alan
[2023-07-26 18:46] VITALS: BP 128/67; PULSE 76; RESP 20
[2023-07-26 19:01] VITALS: BP 115/84; PULSE 77; RESP 18; O2SAT 96
[2023-07-26] MEDS: neomycin-poly-bacitracin oint 28 gm 1 APPLIC TOPICAL (19:37)
[2023-07-26 20:09] VITALS: BP 132/101; PULSE 84; RESP 20; O2SAT 98
[2023-07-26 20:22] VITALS: BP 146/75; PULSE 84; RESP 20; O2SAT 99
== END 2023-07-26 20:24 ==
PROVIDERS: Emergency Provider Internal Medicine; PCP Family Medicine
DX: S01.81XA Laceration without foreign body of other part of head, initial encounter (principal); F03.90 Unspecified dementia, unspecified severity, without behavioral disturbance, psychotic disturbance, mood disturbance, and anxiety; I10 Essential (primary) hypertension; W05.0XXA Fall from non-moving wheelchair, initial encounter
CPT/HCPCS: 12013; 70450; 72125; 99284